=== PATIENT | female | born 1955 | race Caucasian/White ===

== ENCOUNTER 2023-07-12 14:30 | Outpatient (OUT) | payer MEDICARE, OTHER, SELFPAY ==
--- NOTE | 2023-07-12 | MM_ITS ---
Patient Name: PETRONA BURNS MR#: [id number] : 1955 Exam Date: 07/12/2023 Ordering Doctor: Chiara Penny RADIOLOGY REPORT PROCEDURE: MM TOMOSYNTHESIS SCREENING BI COMPARISON: None. INDICATIONS: Screening Calculator Name NCI Breast Cancer Risk Assessment Tool 5 Year Breast Cancer Risk 1.50% Lifetime Breast Cancer Risk 5.20% Personal Breast Cancer No Personal Ovarian Cancer No Treatments None Family Cancers None LOCATION: [facility] BREAST COMPOSITION: Heterogeneously dense,which may obscure small masses. FINDINGS: DIAGNOSTIC CATEGORY 2--BENIGN FINDING: Extensive linear calcifications likely representing secretory calcifications. No clustered suspicious calcifications.Scattered benign-appearing lymph nodes are present. RIGHT BREAST: No significant suspicious finding. LEFT BREAST: No significant suspicious finding. RECOMMENDATIONS: ROUTINE MAMMOGRAM AND CLINICAL EVALUATION IN 12 MONTHS. PLEASE NOTE: A NORMAL MAMMOGRAM DOES NOT EXCLUDE THE POSSIBILITY OF BREAST CANCER. A CLINICALLY SUSPICIOUS PALPABLE LUMP SHOULD BE BIOPSIED. Dictated by: Greg Conde MD on 07/14/2023 at 07:38 Approved by: Greg Conde MD on 07/14/2023 at 07:41
--- NOTE | 2023-07-12 14:42 | XR_ITS ---
[address] [address] Patient Name: PETRONA BURNS MRN: [id number] date: 1955 Sex: F Assigned Patient Location: MAMMO Current Patient Location: [facility] Accession/Order Number: [id number] Exam Date: 07/12/2023 15:00 Report Date: 07/12/2023 15:21 At the request of: MULU BHAKTA Procedure: XR DEXA axial skeleton EXAMINATION: XR DEXA axial skeleton HISTORY: Asymptomatic Menopause Z78.0 COMPARISON: No relevant comparison available. TECHNIQUE: Dual-energy X-ray absorptiometry (DXA) was performed. FINDINGS: FOREARM ANALYSIS: Average bone mineral density is 0.769 g/cm2. T-score (standard deviation relative to young adult mean): 0.8 . HIP ANALYSIS: Lowest bone mineral density is within the left femoral neck, 0.917 g/cm2. T-score (standard deviation relative to young adult mean): -0.9 . XR/XR DEXA axial skeleton IMPRESSION: [employer] Classification: Normal - Low Fracture Risk Electronically authenticated by: JOSE LUIS ZAFAR Date: 07/12/2023 15:21
== END 2023-07-12 14:31 | disposition home or self-care (01) ==
LOC: MAMMO 14:30
PROVIDERS: PCP Family Medicine; Visit Provider Family Medicine
DX: Z12.31 Encounter for screening mammogram for malignant neoplasm of breast (principal); Z78.0 Asymptomatic menopausal state
CPT/HCPCS: 77063; 77067; 77080

== ENCOUNTER 2023-09-20 15:33 | Outpatient (OUT) | payer MEDICARE, OTHER, SELFPAY ==
--- OUTSIDE RECORDS SUMMARY | 2023-09-20 15:41 | XMS_ITS | CCD ---
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 Name Role Phone Mil Leiva Primary Care Provider EDGARD MANUEL Referring Unavailable MIL LEIVA Primary Care Unavailable Penny, Chiara Unavailable Asaad, Imad Unavailable MD Leslie Imyehuda Attending Provider [phone] Penny, DO Chiara A Primary Care Provider [phone] Penny, DO Chiara A Primary Care Provider [phone] Penny, DO Chiara A Attending Provider [phone] Penny, DO Chiara A Primary Care Provider [phone] Penny, DO Chiara A Attending Provider [phone] Asaad, Imad Attending Unavailable Penny, Chiara A Primary Care Unavailable Asaad, Imad Admitting Unavailable Penny, Chiara A Admitting Unavailable Penny, Chiara A Primary Care Unavailable Penny, Chiara A Attending Unavailable Penny, Chiara A Admitting Unavailable Penny, Chiara A Primary Care Unavailable Zohaib, Chiara A Attending Unavailable Dez Harrell DO Primary Care Provider Unava ilable LISA WILSON Referring Unavailable DEZ HARRELL Primary Care Unavailable LISA WILSON Referring Unavailable DEZ HARRELL Primary Care Unavailable LISA WILSON Referring Unavailable DEZ HARRELL Primary Care Unavailable Medications Current Medications Medication Drug Class(es) Dates Sig (Normalized) Sig (Original) aspirin 81 mg delayed release oral tablet (2 sources) Platelet Aggregation Inhibitor, Nonsteroidal Anti-inflammatory Drug take 1 tablet by mouth in the morning aspirin 81 mg Take 1 tablet (81 mg total) by mouth in the morning. 0 Active cetirizine hydrochloride 10 mg chewable tablet (11 sources) Histamine-1 Receptor Antagonist cetirizine (ZyrTEC) 10 MG chewable tablet Chew 1 tablet (10 mg total) and swallow in the morning. 0 Active take 1 tablet by noemi th every twenty-four hours Cetirizine HCl 10 MG 1 tablet Orally Onc e a day for 90 days PRN Active ubidecarenone 100 mg oral tablet (2 sources) take 1 capsule by mo uth once daily UBIDECARENONE (COENZYME Q10) 100 mg tablet Take 1 capsule by mouth daily. 0 Active take 10 capsules by mouth once C oenzyme Q10 (CO Q 10) 100 MG CAPS Take 300 mg by mouth 0 Active fluticasone propionate 0.05 mg/actuat metered dose nasal spray (1 source) Corticosteroid take 2 spray(s) nasal route in the morning fluticasone (FLONASE) 50 mcg/actuation nasal spray Administer 2 sprays into each nostril in the morning. 0 Active hydroCHLOROthiazide 12.5 mg / losartan potassium 50 mg oral tablet (15 sources) Thiazide Diuretic, Angiotensin 2 Receptor Carlos Start: 2016 take 1 tablet by mouth once daily Losartan-Hydrochlor othiazide Active 1 TAB PO Daily January 31, 2023 11:00pm metFORMIN hydrochloride 500 mg oral tablet (15 sources) Biguanide Start: 2019 take 500 mg by mouth once daily Metformin Active 500 MG PO Daily January 31, 2023 11:00pm take 1 tablet by noemi th once daily at breakfast metFORMIN (FORTAMET) 500 MG (OSM) 24 hr tablet Take 1 tablet (500 mg total) by mouth daily with breakfast. 0 Active 24 hr metoprolol succinate 50 mg extended release oral tablet (15 sources) beta-Adrenergic Carlos Start: 02-25-2017 take 50 mg by mouth once daily Metoprolol Succinate Active 50 MG PO Daily January 31, 2023 11:00pm Multiple Vitamin (MULTI-VITAMIN PO) (1 source) Multiple Vitamin (MULTI-VITAMIN PO) Take by mouth. 0 Active MULTIVITAMIN ORAL (1 source) take 1 tablet by mouth once daily MULTIVITAMIN ORAL Take 1 tablet by mouth daily. 0 Active omega 9-eda-ayr-fish oil 1,000 mg (120 mg-180 mg) capsule (1 source) take 1 capsule by mouth in the morning omega 2-uea-yig-fish oil 1,000 mg (120 mg-180 mg) capsule Take 1 capsule by mouth in the morning. 0 Active rosuvastatin calcium 10 mg oral tablet (14 sources) HMG-CoA Reductase Inhibitor Start: 07-13-2023 take 1 tablet by mouth every twenty-four hours Rosuvastatin Calcium 10 MG 1 tablet Orally Once a day for 90 days Jun, Active Start: 02-24-2017 take 20 mg by mouth once daily Rosuvastatin Active 20 MG PO Daily January 31, 2023 11:00pm traMADol hydrochloride 50 mg oral tablet (2 sources) Opioid Agonist Start: 07-29-2020 End: 08-01-2020 take 1 tablet by mouth twice daily as needed for pain traMADol (ULTRAM) 50 MG tablet Indications: Chronic midline low back pain with bilateral sciatica Take 1 tablet by mouth 2 times daily as needed for Pain for up to 3 days. 6 tablet 0 07/29/2020 08/01/2020 Active take 1 tablet by noemi th every six hours as needed for pain traMADol (ULTRAM) 50 mg tablet Take 1 tablet (50 mg total) by mouth every 6 (six) hours as needed for pain. 0 Active Completed/Discontinued Medications Medication Drug Class(es) Dates Sig (Normalized) Sig (Original) polyethylene glycol 3350 402902 mg / potassium chloride 2970 mg / sodium bicarbonate 6740 mg / sodium chloride 5860 mg / sodium sulfate 70526 mg powder for oral solution (6 sources) Osmotic Laxative Start: 11-24-2022 PEG-3350/Electroly lissy 236 GM as directed Orally once daily for 1 days Oct, Not-Taking Problems Active Problems Problem Classification Problem Date Documented Date Episodic/Chronic Chronic kidney disease (2 sources) Chronic kidney disease; Translations: [Chronic kidney disease, unspecified] Onset: 7 10-23-2011 Chronic Coronary atherosclerosis and other heart disease (3 sources) Coronary arteriosclerosis; Translations: [Atherosclerotic heart disease of [place] coronary artery without angina pectoris] Chronic Diabetes mellitus without complication (16 sources) Type 2 diabetes mellitus; Translations: [Type 2 diabetes mellitus without complication] Onset: 7 10-22-2016 Chronic Disorders of lipid metabolism (15 sources) Mixed hyperlipidemia; Translations: [Hyperlipidemia] Onset: 7 10-23-2011 Chronic Esophageal disorders (2 sources) Gastroesophageal reflux disease; Translations: [Gastro-esophageal reflux disease without esophagitis] Onset: 7 10-23-2011 Chronic Essential hypertension (14 sources) Essential hypertension; Translations: [Essential (primary) hypertension] Onset: 6 06-19-2016 Chronic Nonspecific chest pain (1 source) Precordial pain; Translations: [Precordial pain] Onset: 4 Episodic Osteoarthritis (2 sources) Osteoarthritis; Translations: [Unspecified osteoarthritis, unspecified site] Onset: 7 Resolved: 9 09-30-2018 Chronic Other and unspecified benign neoplasm (10 sources) History of polyp of colon; Translations: [Personal history of colonic polyps] Episodic Other and unspecified benign neoplasm (1 source) Personal history of colonic polyps Episodic Other circulatory disease (1 source) Carotid bruit; Translations: [Other specified symptoms and signs involving the circulatory and respiratory systems] Onset: 3 08-17-2023 Episodic Other non-traumatic joint disorders (1 source) Pain in right hip Episodic Other screening for suspected conditions (not mental disorders or infectious disease) (8 sources) Electrocardiogram abnormal; Translations: [Encounter for other screening for malignant neoplasm of breast] Onset: 3 Resolved: 9 09-30-2018 Episodic Other upper respiratory disease (2 sources) Allergic rhinitis; Translations: [Allergic rhinitis, unspecified] Onset: 2 12-11-2011 Chronic Other upper respiratory disease (3 sources) Other seasonal allergic rhinitis; Translations: [Seasonal allergies] Chronic Other upper respiratory disease (4 sources) Seasonal allergy; Translations: [Other seasonal allergic rhinitis] Chronic Residual codes; unclassified (1 source) Asymptomatic menopausal state Episodic Substance-related disorders (9 sources) Tobacco user; Translations: [Nicotine dependence, cigarettes, uncomplicated] Chronic Unclassified (1 source) Encounter for screening for malignant neoplasm of colon; Translations: [Encounter for screening for malignant neoplasm of colon] Onset: 3 Past or Other Problems Problem Classification Problem Date Documented Date Episodic/Chronic Genitourinary symptoms and ill-defined conditions (3 sources) Microalbuminuria; Translations: [Blood in urine] Onset: 10-22-2016 Resolved: 09-30-2018 09-30-2018 Episodic Other and unspecified benign neoplasm (1 source) Benign neoplastic disease; Translations: [Multiple adenomatous polyps] Onset: 09-28-2017 Resolved: 09-30-2018 09-30-2018 Episodic Other connective tissue disease (2 sources) Lateral epicondylitis; Translations: [Lateral epicondylitis, unspecified elbow] Onset: 10-23-2011 Resolved: 05-16-2018 05-16-2018 Episodic Other connective tissue disease (1 source) Pain in thumb ; Translations: [Pain in unspecified finger(s)] Onset: 07-24-2012 03-09-2017 Episodic Other connective tissue disease (1 source) Pain in right thumb; Translations: [Pain of right thumb] Onset: 07-24-2012 Resolved: 09-30-2018 09-30-2018 Other non-traumatic joint disorders (1 source) Pain in wrist; Translations: [Pain in unspecified wrist] Onset: 07-24-2012 03-09-2017 Episodic Other non-traumatic joint disorders (1 source) Pain of right wrist; Translations: [Right wrist pain] Onset: 07-24-2012 Resolved: 05-16-2018 05-16-2018 Other skin disorders (2 sources) Loss of hair; Translations: [Nonscarring hair loss, unspecified] Onset: 06-20-2016 Resolved: 09-30-2018 09-30-2018 Episodic Spondylosis; intervertebral disc disorders; other back problems (1 source) Degeneration of intervertebral disc; Translations: [DDD (degenerative disc disease)] Resolved: 09-30-2018 09-30-2018 Chronic Spondylosis; intervertebral disc disorders; other back problems (2 sources) Chronic low back pain; Translations: [Narrowing of intervertebral disc space] Onset: 03-09-2017 06-18-2017 Episodic Results Test Name Value Interpretation Reference Range Facility CT CTA COR ARTERIES W OR WO SCORINGon 09-16-2023 CT CTA COR ARTERIES W OR WO SCORING CT CTA COR ARTERIES W OR WO SCORING CLINICAL INFORMATION: Abnormal CT scan of the heart, precordial pain, coronary artery disease screening, high coronary artery disease risk, not treadmill candidate. Chest pain TECHNIQUE: Computed tomography (CT) of the heart was obtained using electrocardiography (ECG) triggering. 100 mL of Omni 350 contrast was administered intravenously. In preparation for the examination, the patient received 20 mg oral metoprolol for heart rate/rhythm control and 0.4 mg sublingual nitroglycerin spray for coronary vasodilation. There were no complications 3-D volume rendered maximum intensity projection images were generated and reviewed under concurrent physician supervision on an independent workstation.. CT Derived Fractional Flow G[place] (FFRct) Analysis: FFRct is only obtained on studies with a high coronary calcium burden or in patients with an intermediate grade coronary stenosis to assess the physiologic significance of anatomic stenoses (measured 1-2 cm distal to the stenosis). * FFRct greater than 0.80 = normal. * FFRct 0.76-0.80 = intermediate range and features of the stenosis including location (proximal vs. distal), presence of high risk plaque or change in FFRct value across the lesion along with clinical presentation should be utilized to determine need for invasive angiography. * FFRct less than 0.75 = abnormal and a follow up invasive angiography is generally recommended. All CT scans at this facility use dose modulation, iterative reconstruction, and/or weight based dosing when appropriate to reduce radiation dose to as low as reasonably achievable. COMPARISON: No relevant prior studies submitted for comparison at the time of interpretation. EXTRACARDIAC FINDINGS: The visualized lungs demonstrate no abnormality. Small hiatal hernia. Images of the upper abdomen demonstrate no abnormality. The pulmonary arteries are normal in caliber. The visualized thoracic aorta is normal normal in caliber with severe calcified and noncalcified plaque, including irregular noncalcified plaque of the descending thoracic aorta with areas of ulcerated plaque. CARDIAC MORPHOLOGY: The right atrium is normal. The right ventricle is normal. The left atrium is normal. The left ventricle is normal. Mild aortic valve leaflet calcification. Mitral valve annular calcification. The pericardium is normal CALCIUM SCORE: Agatston Score: The total (aggregate) calcium score using the AJ-130 method is 2039.9. Total volume score is 1667.8. Greater than 90% of similar patients have less coronary artery calcium {this is reported using the interactive MARTINEZ form found at [email or web address].martinez-[email or web address] org} Individual major vessel AJ-130 scores are: LM = 162.3 LAD = 245.6 LCX = 451.8 RCA/PDA = 1180.2 Other = [address] Angiogram: The overall quality of the CT angiographic examination is excellent. Coronary Artery Angiogram Findings: Stenoses are reported as maximum percentage diameter stenosis. Stenosis grading is reported using the following scheme: Normal: no stenosis Mild: 1-49% stenosis Moderate: 50-70% stenosis Severe: >70% stenosis Occluded The coronary artery system is right dominant with normal origins. The LM has no stenosis with mild calcified plaque. The extent of calcified plaque of the left main coronary artery appears to be overestimated calcium scoring which includes calcification of the adjacent aortic root. The proximal LAD and first diagonal branch (D1) have mild stenosis with predominantly calcified plaque. The mid-distal LAD, D2 and D3 branches) have no stenosis with noncalcified plaque. The proximal to mid LCx coronary artery has mild calcified plaque with no stenosis. Its obtuse marginal (OM) branches have no stenosis with no plaque. 60% ostial RCA stenosis secondary to calcified plaque, additional multifocal stenosis of proximal to mid RCA secondary to calcified and noncalcified plaque as well as severe stenosis of mid RCA and moderate stenosis of the distal RCA secondary to mixed calcified and noncalcified plaque. The right posterior descending artery (RPDA)/right posterolateral {RPL} branches branches have mild stenosis with calcified and noncalcified plaque. IMPRESSION: 1. Severe coronary artery disease including diffuse calcified and noncalcified plaque of the right coronary artery with 60% ostial stenosis from calcified plaque at the osteotomy RCA and a similar to the stenosis including severe stenosis of the mid RCA. 2. Severe atherosclerosis with calcified noncalcified plaque of the visualized thoracic aorta including multifocal areas of ulcerated plaque. The 60 % stenosis in the right coronary artery ostial segment has a borderline likelihood of lesion-specific ischemia with an FFRCT value of 0.80. Gradually decreasing FFR CT values throughout the right coronary artery due to severe atherosclerotic disease with multifocal severe stenosis, and therefore difficult to assess likelihood of lesion specific isch (more content not included)... Normal [facility] CT FFRCT HEARTFLOWon [address] FFRCT HEARTFLOW CLINICAL INFORMATION: Abnormal CT scan of the heart, precordial pain, coronary artery disease screening, high coronary artery disease risk, not treadmill candidate. Chest pain TECHNIQUE: Computed tomography (CT) of the heart was obtained using electrocardiography (ECG) triggering. 100 mL of Omni 350 contrast was administered intravenously. In preparation for the examination, the patient received 20 mg oral metoprolol for heart rate/rhythm control and 0.4 mg sublingual nitroglycerin spray for coronary vasodilation. There were no complications 3-D volume rendered maximum intensity projection images were generated and reviewed under concurrent physician supervision on an independent workstation.. CT Derived Fractional Flow [place] (FFRct) Analysis: FFRct is only obtained on studies with a high coronary calcium burden or in patients with an intermediate grade coronary stenosis to assess the physiologic significance of anatomic stenoses (measured 1-2 cm distal to the stenosis). * FFRct greater than 0.80 = normal. * FFRct 0.76-0.80 = intermediate range and features of the stenosis including location (proximal vs. distal), presence of high risk plaque or change in FFRct value across the lesion along with clinical presentation should be utilized to determine need for invasive angiography. * FFRct less than 0.75 = abnormal and a follow up invasive angiography is generally recommended. All CT scans at this facility use dose modulation, iterative reconstruction, and/or weight based dosing when appropriate to reduce radiation dose to as low as reasonably achievable. COMPARISON: No relevant prior studies submitted for comparison at the time of interpretation. EXTRACARDIAC FINDINGS: The visualized lungs demonstrate no abnormality. Small hiatal hernia. Images of the upper abdomen demonstrate no abnormality. The pulmonary arteries are normal in caliber. The visualized thoracic aorta is normal normal in caliber with severe calcified and noncalcified plaque, including irregular noncalcified plaque of the descending thoracic aorta with areas of ulcerated plaque. CARDIAC MORPHOLOGY: The right atrium is normal. The right ventricle is normal. The left atrium is normal. The left ventricle is normal. Mild aortic valve leaflet calcification. Mitral valve annular calcification. The pericardium is normal CALCIUM SCORE: Agatston Score: The total (aggregate) calcium score using the AJ-130 method is 2039.9. Total volume score is 1667.8. Greater than 90% of similar patients have less coronary artery calcium {this is reported using the interactive MARTINEZ form found at [email or web address].martinez-[email or web address] org} Individual major vessel AJ-130 scores are: LM = 162.3 LAD = 245.6 LCX = 451.8 RCA/PDA = 1180.2 Other = [address] Angiogram: The overall quality of the CT angiographic examination is excellent. Coronary Artery Angiogram Findings: Stenoses are reported as maximum percentage diameter stenosis. Stenosis grading is reported using the following scheme: Normal: no stenosis Mild: 1-49% stenosis Moderate: 50-70% stenosis Severe: >70% stenosis Occluded The coronary artery system is right dominant with normal origins. The LM has no stenosis with mild calcified plaque. The extent of calcified plaque of the left main coronary artery appears to be overestimated calcium scoring which includes calcification of the adjacent aortic root. The proximal LAD and first diagonal branch (D1) have mild stenosis with predominantly calcified plaque. The mid-distal LAD, D2 and D3 branches) have no stenosis with noncalcified plaque. The proximal to mid LCx coronary artery has mild calcified plaque with no stenosis. Its obtuse marginal (OM) branches have no stenosis with no plaque. 60% ostial RCA stenosis secondary to calcified plaque, additional multifocal stenosis of proximal to mid RCA secondary to calcified and noncalcified plaque as well as severe stenosis of mid RCA and moderate stenosis of the distal RCA secondary to mixed calcified and noncalcified plaque. The right posterior descending artery (RPDA)/right posterolateral {RPL} branches branches have mild stenosis with calcified and noncalcified plaque. IMPRESSION: 1. Severe coronary artery disease including diffuse calcified and noncalcified plaque of the right coronary artery with 60% ostial stenosis from calcified plaque at the osteotomy RCA and a similar to the stenosis including severe stenosis of the mid RCA. 2. Severe atherosclerosis with calcified noncalcified plaque of the visualized thoracic aorta including multifocal areas of ulcerated plaque. The 60 % stenosis in the right coronary artery ostial segment has a borderline likelihood of lesion-specific ischemia with an FFRCT value of 0.80. Gradually decreasing FFR CT values throughout the right coronary artery due to severe atherosclerotic disease with multifocal severe stenosis, and therefore difficult to assess likelihood of lesion specific ischemia in the right (more content not included)... Normal [facility] Creatinine (Bld) [Mass/Vol]o n 09-14-2023 Creatinine [Mass/Vol] 1.6 mg/dL High 0.4-1.0 [facility] Comment on above: Result Comment: METH OD TRACEABLE TO IDMS STANDARD Performed By: #### [id number] #### [facility] ([id number]) [address] [place] [address], GFR/1.73 sq M.predicted among non-blacks MDRD (S/P/Bld) [Vol rate/Area] 35 mL/min/{1.73_m2} Low >59 [facility] Comment on above: Result Comment: Reported eGFR is based on the CKD-EPI 2020 equation that does not use a race coefficient. Performed By: #### 3 [id number] #### [facility] ([id number]) [address] [facility] heart calcium score woon 07-07-2023 CT heart calcium score wo [facility] [place] [address] [place] [address] CT Scan Report Signed Patient: Nelia Alvarado MR#: [id number] : 1955 Acct:[id number] Age/Sex: 68 / F ADM Date: 07/07/23 Loc: CT Room: Type: [facility] Attending Dr: Chiara Penny DO Copies to: Chiara Penny DO Ordering Provider: Chiara Penny DO Date of Service: 07/07/23 CT/CT heart calcium score wo: Hyperlipidemia CT heart calcium score w/o contrast REASON FOR EXAM: Hyperlipidemia, hypertension TECHNIQUE: Prospective gated imaging of the heart were obtained for calcium evaluation of the coronary arteries. Agatston score was calculated. The CT exam was performed using one or more the following dose reduction techniques: Automated exposure control, adjustment of the MA and/or Kv according to patient size, or use of the iterative reconstruction technique. COMPARISON:None. FINDINGS: LEFT MAIN: 331.89 LEFT ANTERIOR DESCENDIN.2 RIGHT CORONARY ARTERY: 1364.7 CIRCUMFLEX: 447.22 TOTAL AGATSTON CALCIUM SCORE: 2387.18 This calcium score places the patient at the 90th percentile. EXTRACARDIAC STRUCTURES: No evidence of mediastinal or hilar lymphadenopathy. No pericardial effusion. Visualized lungs demonstrate no acute process. No lung nodule is seen. Limited images of the upper abdomen demonstrate no acute findings. Extensive calcified plaque formation is noted in the thoracic aorta. There is calcified plaque at the mitral and aortic annulus. CT/CT heart calcium score wo IMPRESSION: No significant extracardiac CT findings. CALCIUM SCORE INTERPRETATION (0) No identifiable atherosclerotic plaque. Very low cardiovascular disease risk. Less then 5% chance of presence of coronary artery disease. (1-99) RIsk is mildly increased. Treatment recommendation - moderate intensity statin. (100-299) Risk is moderately increased. Treatment recommendation - moderate to high intensity statin plus ASA 81mg. (>300) Risk is moderately to severely increased. Treatment recommendation - high intensity statin plus ASA 81mg. Source: October 2017 - Coronary artery calcium data and reporting system. An expert consensus document of the Society of Cardiovascular Computed Tomography) CALCIUM SCORING OVERVIEW: Coronary calcium is a marker for plaque in a blood vessel or atherosclerosis (hardening of the arteries). The presence and amount of calcium detected in the coronary artery by the CT scan es timates the presence and amount of atherosclerotic plaque. These calcium deposits can appear years before the development of heart disease symptoms such as chest pain and shortness of breath. A calcium score is computed of each of the coronary arteries based upon the volume and density of the calcium deposits. This can be referred to as your calcified plaque burden. It does not correspond directly to the percentage of narrowing in the artery, but does correlate with the severity of the overall coronary atherosclerotic burden. This score is then used to determine the calcium percentile which compares your calcified plaque to that of other asymptomatic men and women of the same age. The calcium score, in combination with the percentile, enables your physician to determine your risk of developing symptomatic coronary artery disease, and to measure the progression of disease as well as the effectiveness of treatment. A score of zero indicates that there is no calcified plaque burden. This implies that there is no significant coronary artery narrowing and very low likelihood of a cardiac event over at least the next 3 years. It does not absolutely rule out the presence of soft, noncalcified plaque or totally eliminate the possibility of a cardiac event. A score greater than zero indicates at least some coronary artery disease. As the score increases, so does the likelihood of a significant coronary narrowing and the likelihood of a coronary event over the next 3 years. Similarly, the likelihood of a coronary event increases with increasing calcium percentiles. Impression dictated by: Mil Naranjo M.D.07/07/2023 4:49 PM Dictation Location: [place] [address] Transcribed By: AMY 07/07/23 700 Dictated By: Mil Naranjo II, MD 07/07/23 8109 Signed By: 07/07/231648 [facility] A1C HEMOGLOBINon 05-19-2023 HbA1c (Bld) [Mass fraction] 6.2 % Livevol Other Alanine aminotransferase [En zymatic activity/volume] in Serum or PlasmaOrdered By: Chiara Penny on 05-19-2023 ALT [Catalytic activity/Vol] 14 U/L 7-52 [facility] Albumin [Mass/volume] in Ser um or Plasma by Bromocresol green (BCG) dye binding methoOrdered By: Chiara Penny on 05-19-2023 Albumin BCG dye [Mass/Vol] 4.4 g/dL 3.5-5.7 [facility] Alkaline phosphatase [Enzyma tic activity/volume] in Serum or PlasmaOrdered By: Chiara Penny on 05-19-2023 ALP [Catalytic activity/Vol] 50 U/L 34-104 [facility] Aspartate aminotransferase [ Enzymatic activity/volume] in Serum or PlasmaOrdered By: Chiara Penny on 05-19-2023 AST [Catalytic activity/Vol] 15 U/L 13-39 [facility] Bilirubin.total [Mass/volume ] in Serum or PlasmaOrdered By: Chiara Penny on 05-19-2023 Bilirubin [Mass/Vol] 0.3 mg/dL 0.3-1.0 [facility] Calcium [Mass/volume] in Ser um or PlasmaOrdered By: Chiara Penny on 05-19-2023 Calcium [Mass/Vol] 10.1 mg/dL 8.6-10.3 [facility] Carbon dioxide, total [Moles /volume] in Serum or PlasmaOrdered By: Chiara Penny on 05-19-2023 CO2 [Moles/Vol] 31.1 mmol/L 21.0-31.0 [facility] Chloride [Moles/volume] in S radha or PlasmaOrdered By: Chiara Penny on 05-19-2023 Chloride [Moles/Vol] 101 mmol/L 98-107 [facility] Cholesterol [Mass/volume] in Serum or PlasmaOrdered By: Chiara Penny on 05-19-2023 Cholesterol [Mass/Vol] 332 mg/dL 140-200 [facility] Comment on above: Chol less than 200 m g/dl low riskChol 201-239 mg/dl borderline riskChol 240 mg/dl and greater high risk Cholesterol in LDL Calc [Mas s/Vol]Ordered By: Chiara Penny on 05-19-2023 Cholesterol in LDL [Mass/Vol] 226 mg/dL 0-100 [facility] Comment on above: LDL ATP III CLASSIFI CATIONLDL less than 100 mg/dL OptimalLDL 100-129 mg/dL Near or above optimalLDL 130-159 mg/dL Borderline highLDL 160-189 mg/dL HighLDL greater than 189 mg/dL Very high Cholesterol in VLDL Calc [Ma ss/Vol]Ordered By: Chiara Penny on 05-19-2023 Cholesterol in VLDL [Mass/Vol] 65 mg/dL [facility] Comprehensive Metabolic Pane frederick 05-19-2023 Albumin [Mass/Vol] 4.4 g/dL Normal 3.5-5.7 [facility] Comment on above: Order Comment: Reaso n for Exam Type 2 diabetes mellitus without complication, without long- FASTING. JKW Performed By: #### L IPID, URMA, CMP, CBCNO #### [facility] [address] [place] [address] [place] Albumin/Globulin [Mass ratio] 1.6 {ratio} Normal [facility] Comment on above: Order Comment: Reaso n for Exam Type 2 diabetes mellitus without complication, without long- FASTING. JKW Performed By: #### L IPID, URMA, CMP, CBCNO #### [facility] [address] [place] [id number] [place] ALP [Catalytic activity/Vol] 50 U/L Normal 34-104 [facility] Comment on above: Order Comment: Reaso n for Exam Type 2 diabetes mellitus without complication, without long- FASTING. JKW Performed By: #### L IPID, URMA, CMP, CBCNO #### [facility] [address] [place] [id number] [place] ALT [Catalytic activity/Vol] 14 U/L Normal 7-52 [facility] Comment on above: Order Comment: Reaso n for Exam Type 2 diabetes mellitus without complication, without long- FASTING. JKW Performed By: #### L IPID, URMA, CMP, CBCNO #### [facility] [address] Anion gap [Moles/Vol] 11.3 mmol/L Normal 6.0-15.0 [facility] Comment on above: Order Comment: Reaso n for Exam Type 2 diabetes mellitus without complication, without long- FASTING. JKW Performed By: #### L IPID, URMA, CMP, CBCNO #### [facility] [address] AST [Catalytic activity/Vol] 15 U/L Normal 13-39 [facility] Comment on above: Order Comment: Reaso n for Exam Type 2 diabetes mellitus without complication, without long- FASTING. JKW Performed By: #### L IPID, URMA, CMP, CBCNO #### [facility] [address] Bilirubin [Mass/Vol] 0.3 mg/dL Normal 0.3-1.0 [facility] Comment on above: Order Comment: Reaso n for Exam Type 2 diabetes mellitus without complication, without long- FASTING. JKW Performed By: #### L IPID, URMA, CMP, CBCNO #### [facility] [address] Calcium [Mass/Vol] 10.1 mg/dL Normal 8.6-10.3 [facility] Comment on above: Order Comment: Reaso n for Exam Type 2 diabetes mellitus without complication, without long- FASTING. JKW Performed By: #### L IPID, URMA, CMP, CBCNO #### [facility] [address] [place] [id number] [place] Chloride [Moles/Vol] 101 mmol/L Normal 98-107 [facility] Comment on above: Order Comment: Reaso n for Exam Type 2 diabetes mellitus without complication, without long- FASTING. JKW Performed By: #### L IPID, URMA, CMP, CBCNO #### [facility] [address] [place] [id number] [place] CO2 [Moles/Vol] 31.1 mmol/L High 21.0-31.0 [facility] Comment on above: Order Comment: Reaso n for Exam Type 2 diabetes mellitus without complication, without long- FASTING. JKW Performed By: #### L IPID, URMA, CMP, CBCNO #### [facility] [address] Creatinine [Mass/Vol] 1.17 mg/dL Normal 0.60-1.20 [facility] Comment on above: Order Comment: Reaso n for Exam Type 2 diabetes mellitus without complication, without long- FASTING. JKW Performed By: #### L IPID, URMA, CMP, CBCNO #### [facility] [address] GFR/1.73 sq M.predicted MDRD (S/P/Bld) [Vol rate/Area] 51.144 mL/min/{1.73_m2} Normal [facility] Comment on above: Order Comment: Reaso n for Exam Type 2 diabetes mellitus without complication, without long- FASTING. JKW Performed By: #### L IPID, URMA, CMP, CBCNO #### [facility] [address] Globulin (S) [Mass/Vol] 2.8 g/dL Normal [facility] Comment on above: Order Comment: Reaso n for Exam Type 2 diabetes mellitus without complication, without long- FASTING. JKW Performed By: #### L IPID, URMA, CMP, CBCNO #### [facility] [address] Glucose [Mass/Vol] 122 mg/dL High 70-100 [facility] Comment on above: Order Comment: Reaso n for Exam Type 2 diabetes mellitus without complication, without long- FASTING. JKW Result Comment: [place] Glucose Reference Range is dependent on time and content of last meal. Glucose of more than 200 mg/dL in a nonstressed, ambulatory subject supports the diagnosis of Diabetes Mellitus. ADA recommended reference range Performed By: #### L IPID, URMA, CMP, CBCNO #### [facility] [address] Potassium [Moles/Vol] 4.4 mmol/L Normal 3.5-5.1 [facility] Comment on above: Order Comment: Reaso n for Exam Type 2 diabetes mellitus without complication, without long- FASTING. JKW Performed By: #### L IPID, URMA, CMP, CBCNO #### [facility] [address] Protein [Mass/Vol] 7.2 g/dL Normal 6.4-8.9 [facility] Comment on above: Order Comment: Reaso n for Exam Type 2 diabetes mellitus without complication, without long- FASTING. JKW Performed By: #### L IPID, URMA, CMP, CBCNO #### [facility] [address] [place] [address] [place] Sodium [Moles/Vol] 139 mmol/L Normal 136-145 [facility] Comment on above: Order Comment: Reaso n for Exam Type 2 diabetes mellitus without complication, without long- FASTING. JKW Performed By: #### L IPID, URMA, CMP, CBCNO #### [facility] [address] [place] [address] [place] Urea nitrogen [Mass/Vol] 20 mg/dL Normal 7-25 [facility] Comment on above: Order Comment: Reaso n for Exam Type 2 diabetes mellitus without complication, without long- FASTING. JKW Performed By: #### L IPID, URMA, CMP, CBCNO #### [facility] [address] Creatinine [Mass/volume] in Serum or PlasmaOrdered By: Chiara Penny on 05-19-2023 Creatinine [Mass/Vol] 1.17 mg/dL 0.60-1.20 [facility] Erythrocyte distribution wid th Auto (RBC) [Ratio]Ordered By: Chiara Penny on 05-19-2023 Erythrocyte distribution width (RBC) [Ratio] 13.2 % 11.9-15.3 [facility] Globulin Calc (S) [Mass/Vol] Ordered By: Chiara Penny on 05-19-2023 Globulin (S) [Mass/Vol] 2.8 g/dL [facility] Glucose [Mass/volume] in Ser um or PlasmaOrdered By: Chiara Penny on 05-19-2023 Glucose [Mass/Vol] 122 mg/dL 70-100 [facility] Comment on above: ADA recommended refe rence rangeRandom Glucose Reference Range is dependent on time and content of last meal. Glucose of more than 200 mg/dL in a nonstressed, ambulatory subject supports the diagnosis of Diabetes Mellitus. HbA1c (Bld) [Mass fraction]o n 05-19-2023 A1C HEMOGLOBIN [email or web address] Other Hematocrit Auto (Bld) [Volum e fraction]Ordered By: Chiara Penny on 05-19-2023 Hematocrit (Bld) [Volume fraction] 38.0 % 34.0-46.4 [facility] Hemoglobin [Mass/volume] in BloodOrdered By: Chiara Penny on 05-19-2023 Hemoglobin (Bld) [Mass/Vol] 12.7 g/dL 11.8-15.4 [facility] Hemogram CBC Without Diffon 05-19-2023 Erythrocyte distribution width (RBC) [Ratio] 13.2 % Normal 11.9-15.3 [facility] Comment on above: Order Comment: Reaso n for Exam Type 2 diabetes mellitus without complication, without long- Performed By: #### L IPID, URMA, CMP, CBCNO #### [facility] [address] Hematocrit (Bld) [Volume fraction] 38.0 % Normal 34.0-46.4 [facility] Comment on above: Order Comment: Reaso n for Exam Type 2 diabetes mellitus without complication, without long- Performed By: #### L IPID, URMA, CMP, CBCNO #### [facility] [address] Hemoglobin (Bld) [Mass/Vol] 12.7 g/dL Normal 11.8-15.4 [facility] Comment on above: Order Comment: Reaso n for Exam Type 2 diabetes mellitus without complication, without long- Performed By: #### L IPID, URMA, CMP, CBCNO #### [facility] [address] [place] [address] MCH (RBC) [Entitic mass] 30.7 pg Normal 24.7-34.3 [facility] Comment on above: Order Comment: Reaso n for Exam Type 2 diabetes mellitus without complication, without long- Performed By: #### L IPID, URMA, CMP, CBCNO #### [address] MCV (RBC) [Entitic vol] 92.2 fL Normal 80-100 [facility] Comment on above: Order Comment: Reaso n for Exam Type 2 diabetes mellitus without complication, without long- Performed By: #### L IPID, URMA, CMP, CBCNO #### [address] Mean Corpuscular HGB Conc 33.3 g/dL Normal 32.0-35.0 [facility] Comment on above: Order Comment: Reaso n for Exam Type 2 diabetes mellitus without complication, without long- Performed By: #### L IPID, URMA, CMP, CBCNO #### [address] Platelet mean volume (Bld) [Entitic vol] 9.0 fL Normal 6.3-10.7 [facility] Comment on above: Order Comment: Reaso n for Exam Type 2 diabetes mellitus without complication, without long- Result Comment: PERF ORMED BY: [place] [address] PATHOLOGIST CABLE RIGGER HERMAN STOUT M.D. Performed By: #### L IPID, URMA, CMP, CBCNO #### [place] [address] [place] Platelets (Bld) [#/Vol] 332 10*3/uL Normal 150-450 [facility] Comment on above: Order Comment: Reaso n for Exam Type 2 diabetes mellitus without complication, without long- Performed By: #### L IPID, URMA, CMP, CBCNO #### [address] RBC (Bld) [#/Vol] 4.12 10*6/uL Normal 3.60-5.00 [facility] Comment on above: Order Comment: Reaso n for Exam Type 2 diabetes mellitus without complication, without long- Performed By: #### L IPID, URMA, CMP, CBCNO #### [facility] [address] WBC (Bld) [#/Vol] 8.4 10*3/uL Normal 3.8-11.6 [facility] Comment on above: Order Comment: Reaso n for Exam Type 2 diabetes mellitus without complication, without long- Performed By: #### L IPID, URMA, CMP, CBCNO #### [facility] [address] [place] [address] [place] Leukocytes [#/volume] correc jose for nucleated erythrocytes in Blood by Automated counOrdered By: Chiara Penny on 05-19-2023 WBC corrected for nucl RBC Auto (Bld) [#/Vol] 8.4 10*3/uL 3.8-11.6 [facility] Lipid Panelon 05-19-2023 Cholesterol [Mass/Vol] 332 mg/dL High 140-200 [facility] Comment on above: Order Comment: Reaso n for Exam Type 2 diabetes mellitus without complication, without long- FASTING. JKW Result Comment: Chol less than 200 mg/dl low risk Chol 201-239 mg/dl borderline risk Chol 240 mg/dl and greater high risk Performed By: #### L IPID, URMA, CMP, CBCNO #### [facility] [address] [place] [id number] [place] Cholesterol in HDL [Mass/Vol] 41 mg/dL Normal 23-92 [facility] Comment on above: Order Comment: Reaso n for Exam Type 2 diabetes mellitus without complication, without long- FASTING. JKW Result Comment: HDL CHOL ATP-III CLASSIFICATION Cardiovascular Risk HDL > or equal to 60 mg/dL LOW HDL < 40 mg/dL HIGH Performed By: #### L IPID, URMA, CMP, CBCNO #### [facility] [address] [place] [address] [facility] Cholesterol.total/Brianna sterol in HDL [Mass ratio] 8.1 {ratio} Normal <5.0 [facility] Comment on above: Order Comment: Reaso n for Exam Type 2 diabetes mellitus without complication, without long- FASTING. JKW Result Comment: PERF ORMED BY: [place] [address] PATHOLOGIST CABLE RIGGER HERMAN STOUT M.D. Performed By: #### L IPID, URMA, CMP, CBCNO #### [facility] [address] [place] [address] LDL Cholesterol,Calculated 226 mg/dL High 0-100 [facility] Comment on above: Order Comment: Reaso n for Exam Type 2 diabetes mellitus without complication, without long- FASTING. JKW Result Comment: LDL ATP III CLASSIFICATION LDL less than 100 mg/dL Optimal LDL 100-129 mg/dL Near or above optimal LDL 130-159 mg/dL Borderline high LDL 160-189 mg/dL High LDL greater than 189 mg/dL Very high Performed By: #### L IPID, URMA, CMP, CBCNO #### [address] Triglyceride w/Reflex 325 mg/dL High 0-149 [facility] Comment on above: Order Comment: Reaso n for Exam Type 2 diabetes mellitus without complication, without long- FASTING. JKW Result Comment: TRIG ATP III CLASSIFICATION TRIG less than 150 mg/dL Normal TRIG 150-199 mg/dL Borderline high TRIG 200-500 mg/dL High TRIG greater than 500 mg/dL Very high Standard traceable to the Center for Disease Conrtrol and Prevention (CDC) test method. Performed By: #### L IPID, URMA, CMP, CBCNO #### [facility] [address] [place] [address] VLDL CHOLESTEROL 65 mg/dL [facility] Comment on above: Order Comment: Reaso n for Exam Type 2 diabetes mellitus without complication, without long- FASTING. JKW Performed By: #### L IPID, URMA, CMP, CBCNO #### [facility] [address] [place] [address] MCH Auto (RBC) [Entitic mass ]Ordered By: Chiara Penny on 05-19-2023 MCH (RBC) [Entitic mass] 30.7 pg 24.7-34.3 [facility] MCHC Auto (RBC) [Mass/Vol]Or dered By: Chiara Penny on 05-19-2023 MCHC (RBC) [Mass/Vol] 33.3 g/dL 32.0-35.0 [facility] MCV Auto (RBC) [Entitic vol] Ordered By: Chiara Penny on 05-19-2023 MCV (RBC) [Entitic vol] 92.2 fL 80-100 [facility] Microalbumin [Mass/volume] i n UrineOrdered By: Chiara Penny on 05-19-2023 Albumin DL <= 20 mg/L (U) [Mass/Vol] mg/dL 0.0-1.8 [facility] Microalbumin, Urine (Random) on 05-19-2023 Albumin DL <= 20 mg/L (U) [Mass/Vol] mg/dL High 0.0-1.8 [facility] Comment on above: Order Comment: Reaso n for Exam Type 2 diabetes mellitus without complication, without long- Result Comment: PERF ORMED BY: [place] [address] PATHOLOGIST CABLE RIGGER HERMAN STOUT M.D. Performed By: #### L IPID, URMA, CMP, CBCNO #### [address] No Panel InformationOrdered By: Chiara Penny on 05-19-2023 Estimated GFR (CKD-EPI) 51.144 mL/Min [facility] Creatinine Clearance (Chem N/A [facility] Platelet mean volume Auto (B ld) [Entitic vol]Ordered By: Chiara Penny on 05-19-2023 Platelet mean volume (Bld) [Entitic vol] 9.0 fL 6.3-10.7 [facility] Platelets Auto (Bld) [#/Vol] Ordered By: Chiara Penny on 05-19-2023 Platelets (Bld) [#/Vol] 332 10*3/uL 150-450 [facility] Potassium [Moles/volume] in Serum or PlasmaOrdered By: Chiara Penny on 05-19-2023 Potassium [Moles/Vol] 4.4 mmol/L 3.5-5.1 [facility] Protein [Mass/volume] in Ser um or PlasmaOrdered By: Chiara Penny on 05-19-2023 Protein [Mass/Vol] 7.2 g/dL 6.4-8.9 [facility] RBC Auto (Bld) [#/Vol]Ordere d By: Chiara Penny on 05-19-2023 RBC (Bld) [#/Vol] 4.12 10*6/uL 3.60-5.00 [facility] Serum or plasma albumin/glob ulin mass ratioOrdered By: Chiara Penny on 05-19-2023 Albumin/Globulin [Mass ratio] 1.6 {ratio} [facility] Serum or plasma anion gap de terminationOrdered By: Chiara Penny on 05-19-2023 Anion gap [Moles/Vol] 11.3 mmol/L 6.0-15.0 [facility] Serum or plasma high density lipoprotein (HDL) cholesterol measurementOrdered By: Chiara Penny on 05-19-2023 Cholesterol in HDL [Mass/Vol] 41 mg/dL 23-92 [facility] Comment on above: HDL CHOL ATP-III CLA SSIFICATION Cardiovascular RiskHDL > or equal to 60 mg/dL LOWHDL < 40 mg/dL HIGH Serum or plasma total choles terol/high density lipoprotein (HDL) cholesterol mass ratOrdered By: Chiara Penny on 05-19-2023 Cholesterol.total/Brianna sterol in HDL [Mass ratio] 8.1 {ratio} <5.0 [facility] Sodium [Moles/volume] in Ser um or PlasmaOrdered By: Chiara Penny on 05-19-2023 Sodium [Moles/Vol] 139 mmol/L 136-145 [facility] Triglyceride [Mass/volume] i n Serum or PlasmaOrdered By: Chiara Penny on 05-19-2023 Triglyceride [Mass/Vol] 325 mg/dL 0-149 [facility] Comment on above: TRIG ATP III CLASSIF ICATIONTRIG less than 150 mg/dL NormalTRIG 150-199 mg/dL Borderline highTRIG 200-500 mg/dL High TRIG greater than 500 mg/dL Very highStandard traceable to the Center for Disease Conrtrol and Prevention (CDC) test method. Urea nitrogen [Mass/volume] in Serum or PlasmaOrdered By: Chiara Penny on 05-19-2023 Urea nitrogen [Mass/Vol] 20 mg/dL 7-25 [facility] Glucose Glucometer (BldC) [M ass/Vol]Ordered By: Vaibhav Nelson on 02-01-2023 Glucose [Mass/Vol] 120 mg/dL [facility] Comment on above: Random Glucose Refer ence Range is dependent on time and content of last meal. Glucose of more than 200 mg/dL in a nonstressed, ambulatory subject supports the diagnosis of Diabetes Mellitus. Glucose Poct Glucometerson 0 02-01-2023 Commemt1 Glu2: Cleaned Meter Normal [facility] Comment on above: Result Comment: PERF ORMED BY: [facility] [address] [place] [address] PATHOLOGIST CABLE RIGGER HERMAN STOUT M.D. Performed By: #### G LULS #### Point of Care testing , Glucose [Mass/Vol] 120 mg/dL Normal [facility] Comment on above: Result Comment: [place] Glucose Reference Range is dependent on time and content of last meal. Glucose of more than 200 mg/dL in a nonstressed, ambulatory subject supports the diagnosis of Diabetes Mellitus. Performed By: #### G LULS #### Point of Care testing , [place] 02-01-2023 L -- ---- Specimen: [id number] Received: 02/01/23 Status: BARBARA Lara Num: [id number] Spec Type: Surgical Subm Dr: Vaibhav Nelson MD Tissues: A Colon Biopsy (DESCENDING POLYPS) B Colon Biopsy (SIGMOID POLYP) Procedures: HE/Caty, Gross/Micro L4/2 ---- Age/ Patient Sex Location Account Attending Physician ---- Nelia Alvarado 67/F [id number] Vaibhav Nelson MD ---- SPEC NUM: [id number] RECD: 02/01/23-1009 STATUS: BARBARA LARA NUM: [id number] SARAH: 02/01/23- SUBM DR: Vaibhav Nelson MD ENTERED: 02/01/23-[address] [facility] DR: CAITLIN TYPE: Surgical DEPT: S ORDERED: HE/Caty, Gross/Micro L4/2 ORDERED: HECaty, Gross/Micro L4/2 Pathological Diagnosis A. Colon, descending, polyps, biopsy: - Colonic mucosal fold. - Negative for adenoma/dysplasia. B. Colon, sigmoid, polyp, biopsy: - Hyperplastic polyp. Clinical Information History of colon polyp Gross Description A. Received in formalin labeled with the patient's name, number and descending colon polyps are multiple fragments of soft moffett tissue and apparent fecal material measuring 2.7 x 1.2 x 0.2 cm in aggregate. Entirely submitted in one cassette labeled A1. B. Received in formalin labeled with the patient's name, number and sigmoid colon polyp are multiple fragments of soft moffett tissue and apparent fecal material measuring 2.5 x 1.2 x 0.2 cm in aggregate. Entirely submitted in one cassette labeled B1. ---- Specimen: [id number] Received: 02/01/23 Status: BARBARA Lara Num: [id number] Spec Type: Surgical Subm Dr: Vaibhav Nelson MD Tissues: A Colon Biopsy (DESCENDING POLYPS) B Colon Biopsy (SIGMOID POLYP) Procedures: HE/4, Gross/Micro L4/2 ---- Patient: Nelia Alvarado [id number] (Continued) ---- Specimen: [id number] Received: 02/01/23 (Continued) Signed (signature on file) Suri Aguirre MD 02/02/23 0950 ---- Specimen: [id number] Received: 02/01/23 Status: BARBARA Lara Num: [id number] Spec Type: Surgical Subm Dr: Vaibhav Nelson MD Tissues: A Colon Biopsy (DESCENDING POLYPS) B Colon Biopsy (SIGMOID POLYP) Procedures: HE/4, Gross/Micro L4/2 ---- Patient: Nelia Alvarado [id number] (Continued) ---- Specimen: [id number] Received: 02/01/23 (Continued) Microscopic Description A. Two H E slides reviewed. The microscopic examination confirms the diagnosis. B. Two H E slides reviewed. The microscopic examination confirms the diagnosis. CPT Codes 57097x0 ---- ---- Specimen: [id number] Received: 02/01/23 Status: BARBARA Lara Num: [id number] Spec Type: Surgical Subm Dr: Vaibhav Nelson MD Tissues: A Colon Biopsy (DESCENDING POLYPS) B Colon Biopsy (SIGMOID POLYP) Procedures: HE/Caty, Gross/Micro L4/2 ---- Patient: Nelia Alvarado [id number] (Continued) ---- Signed (signature on file) Suri Aguirre MD 02/02/23 7200 Normal [facility] No Panel InformationOrdered By: Vaibhav Nelson on 02-01-2023 Bedside Glucose Comment Glu2: cleaned meter [facility] A1C HEMOGLOBINon 11-12-2022 HbA1c (Bld) [Mass fraction] 6.7 % [employer] Other HbA1c (Bld) [Mass fraction]o n 11-12-2022 A1C HEMOGLOBIN [facility] [employer] Other Microalb.,Random Uron 2019 Microalb/Creat Ratio 1005 mcg/mg creat High <25 [facility] Comment on above: Performed By: #### U RNMAB #### [employer] [address] [place], [place] [id number] Airline Pilot: Jamie Brantley MD Microalbumin conc. 1230 mg/L High <21 [facility] Comment on above: Performed By: #### U RNMAB #### [facility] [address] [place], [place] [id number] Airline Pilot: Jamie Brantley MD Creatinine [Mass/Vol] 122.4 mg/dL Normal 28.0-217.0 [facility] Comment on above: Performed By: #### U RNMAB #### [employer] [address] [place], [place] [id number] Airline Pilot: Jamie Brantley MD Microalbumin, Uron 0 Albumin/Creatinine DL <= 20 mg/L (24H U) [Mass ratio] 1230 mg/L High <21 [place], [place] Albumin/Creatinine DL <= 20 mg/L (U) [Ratio] 1005 High <25 mcg/mg creat [place], [place] Creatinine [Mass/Vol] 122.4 mg/dL 28 - 2 17 mg/dL [place], [place] Interpretation and review of laboratory results Abnormal [place], [place] Vital Signs Date Time Vital Sign Value Performing Clinician Facility 06-02-2023 13:15-0400 Body height 157.48 cm Chiara Penny Other [facility] Other 06-02-2023 13:15-0400 Body mass index (BMI) [Ratio] 32.74 kg/m2 Chiara Penny Other [facility] Other 06-02-2023 13:15-0400 Body weight 81.19 kg Chiaraamina Penny Other [facility] Other 06-02-2023 13:15-0400 Diastolic blood pressure 84 mm[Hg] Chiara Penny Other [facility] Other 06-02-2023 13:15-0400 Respiratory rate 18 /min Chiara Penny Other [facility] Other 06-02-2023 13:15-0400 SaO2% (BldA) [Mass fraction] 97 % Chiara Penny Other [facility] Other 06-02-2023 13:15-0400 Systolic blood pressure 152 mm[Hg] Chiara Penny Other [facility] Other 05-19-2023 11:45-0400 Body height 157.48 cm Chiara Penny Other [facility] Other 05-19-2023 11:45-0400 Body mass index (BMI) [Ratio] 32.97 kg/m2 Chiara Penny Other [facility] Other 05-19-2023 11:45-0400 Body weight 81.78 kg Chiara Penny Other [facility] Other 05-19-2023 11:45-0400 Diastolic blood pressure 82 mm[Hg] Chiara Penny Other [facility] Other 05-19-2023 11:45-0400 Respiratory rate 18 /min Chiara Penny Other [facility] Other 05-19-2023 11:45-0400 SaO2% (BldA) [Mass fraction] 97 % Chiara Penny Other [facility] Other 05-19-2023 11:45-0400 Systolic blood pressure 138 mm[Hg] Chiara Pneny Other [facility] Other 02-01-2023 10:22-0400 Diastolic blood pressure 61 mm[Hg] DO Chiara Penny Work Phone: [facility] 02-01-2023 10:22-0400 Heart rate 57 /min DO Chiara Penny Work Phone: [facility] 02-01-2023 10:22-0400 Respiratory rate 16 /min DO Chiara Penny Work Phone: [facility] 02-01-2023 10:22-0400 SaO2% (BldA) [Mass fraction] 97 % DO Chiara Penny Work Phone: [facility] 02-01-2023 10:22-0400 Systolic blood pressure 122 mm[Hg] DO Chiara Penny Work Phone: [facility] 02-01-2023 08:52-0400 Body height 157.48 cm DO Chiara Penny Work Phone: [facility] 02-01-2023 08:52-0400 Body temperature 98 [degF] DO Chiara Penny Work Phone: [facility] 02-01-2023 08:52-0400 Body weight 78.92 kg DO Chiara Penny Work Phone: [facility] 11-12-2022 12:00-0400 Body height 157.48 cm Chiara Penny Other [facility] Other 11-12-2022 12:00-0400 Body mass index (BMI) [Ratio] 33.14 kg/m2 Chiara Penny Other [facility] Other 11-12-2022 12:00-0400 Body weight 82.19 kg Chiara Penny Other [facility] Other 11-12-2022 12:00-0400 Diastolic blood pressure 82 mm[Hg] Chiara Penny Other [facility] Other 11-12-2022 12:00-0400 Respiratory rate 18 /min Chiara Penny Other [facility] Other 11-12-2022 12:00-0400 SaO2% (BldA) [Mass fraction] 99 % Chiara Penny Other [facility] Other 11-12-2022 12:00-0400 Systolic blood pressure 154 mm[Hg] Chiara Penny Other [facility] Other Encounters Encounter Date Encounter Type Care Provider Facility Start: 09-16-2023 Telephone encounter Antoni Ventura [facility] Comment on above: Cardiac Cath Start: 09-15-2023 End: 09-16-2023 ambulatory [facility] Start: 09-14-2023 End: 09-15-2023 ambulatory [facility] Start: 08-12-2023 End: 08-12-2023 ambulatory Chiara Penny Other [facility] Other Start: 08-12-2023 Telephone encounter Chiara Penny [facility] [place] Start: 07-08-2023 End: 07-08-2023 ambulatory Chiara Penny Other [facility] Other Start: 07-08-2023 Telephone encounter Chiara Penny [facility] Start: 07-07-2023 End: 07-07-2023 ambulatory Chiara Amina Penny Facility:[facility] Start: 07-07-2023 End: 07-07-2023 ambulatory DO Chiara Amina Penny Work Phone: [facility] Work Phone: Start: 07-07-2023 End: 07-07-2023 Patient encounter procedure DO Chiara Penny Work Phone: [facility] [place] Work Phone: Start: 06-02-2023 End: 06-02-2023 ambulatory Chiarafreedom Penny Other [facility] Other Start: 06-02-2023 Office outpatient vi sit 15 minutes Chiaraamina Penny [facility] [place] Start: 05-20-2023 End: 05-20-2023 ambulatory Chiaraamina Penny Other [facility] Other Start: 05-20-2023 Telephone encounter Chiara Penny [facility] [place] Start: 05-19-2023 End: 05-19-2023 Patient encounter procedure Chiara Penny [facility] Family [facility] [place] Start: 05-19-2023 Telephone encounter Chiaraamina Penny [facility] [place] Start: 05-19-2023 End: 05-19-2023 ambulatory DO Chiara Amina Penyn Work Phone: [facility] Other Start: 05-13-2023 End: 05-13-2023 ambulatory Chiara Zohaib Other [facility] Other Start: 05-13-2023 Telephone encounter Chiara PARDO [facility] [place] Start: 03-10-2023 End: 03-10-2023 ambulatory Imad Asaad Other [facility] Other Start: 03-10-2023 Telephone encounter Imad Asaad [facility] Start: 02-01-2023 End: 02-01-2023 ambulatory Imad Asaad Facility:[facility] Start: 02-01-2023 End: 02-01-2023 Admission to same day surgery center DO Chiara Penny Work Phone: [facility] Work Phone: Start: 02-01-2023 End: 02-01-2023 ambulatory DO Chiara Cr Zohaib Work Phone: [facility] Work Phone: Start: 11-23-2022 End: 11-23-2022 ambulatory Imad Asaad Other [facility] Other Start: 11-23-2022 Telephone encounter Imad Asaad [facility] Start: 11-12-2022 End: 11-12-2022 ambulatory Chiaraamina Penny Other [facility] Other Start: 11-12-2022 Office outpatient ne w 45 minutes Chiara PARDO [facility] Start: 07-29-2020 End: 07-30-2020 Patient encounter procedure [facility] MANU[facility] Start: 07-29-2020 End: 07-29-2020 Subsequent hospital visit by physician Mil [facility]AUDH[facility] Comment on above: Controlled type 2 di abetes mellitus with complication, without long-term current use of insulin (HCC) Procedures Date Procedure Procedure Detail Performing Clinician Start: 07-07-[address] DO Chiara Penny Work Phone: Start: 02-01-2023 Colonoscopy DO Chiara Penny Work Phone: Start: 07-29-2020 Urine albumin quantitative EDGARD MANUEL Start: 07-29-2020 Urine albumin quantitative Edgard Manuel Work Phone: Plan of Treatment Date Care Activity Detail Author Start: 09-22-2027 Screening for malign ant neoplasm of colon Colon cancer screen colonoscopy [place], [place] Start: 09-15-2024 Adult BMI Screening Adult BMI Screen ing [facility] Start: 08-17-2024 Tobacco Screening Tobacco Screening [facility] Start: 09-23-2023 End: 09-23-2023 Admission to same day surgery center 09/23/2023 1:30 PM EST - 09/23/2023 2:30 PM EST Surgery [facility] Cardiac Cath [address] [place] [id number] Lisa Wilson MD [address] [place] [address] Cardiac catheterization [facility] [id number] [facility] Cardiac Cath Comment on above: Cardiac catheterizat ion [facility] [id number] Start: 09-23-2023 Subsequent hospital visit by physician 09/23/2023 1:30 PM EST Hospital Encounter [facility] Cardiac Cath [address] [place] [id number] Lisa Wilson MD [address] [place] [address] angiography [facility] Cardiac Cath Comment on above: Abnormal cardiac CT angiography Start: 09-23-2023 End: 09-23-2023 Patient encounter procedure 09/23/2023 8:30 AM EST Appointment [facility] [address] [facility] [address] [place] [address] Lisa Wilson MD [address] [place] [address] [facility] Start: 06-02-2023 DTaP,Tdap and Td Vac cines (3 - Td or Tdap) DTaP,Tdap and Td Vaccines (3 - Td or Tdap) [facility] Start: 06-02-2023 DTaP/Tdap/Td vaccine (2 - Td) DTaP/Tdap/Td vaccine (2 - Td) [place], [place] Start: 04-30-2023 Influenza vaccination Influenza Vacc ine [facility] Start: 02-01-2023 [facility] Start: 07-29-2021 Diabetic foot examination Diabetic f oot exam [place] Start: 07-29-2021 HbA1c (Bld) [Mass fraction] A1C test (Diabetic or Prediabetic) [place] Start: 2021 Fall Risk Screening Fall Risk Screen ing [facility] Start: 11-22-2020 End: 11-22-2020 Office Visit 11/22/2020 Office Visit Family Medicine Edgard Manuel, NECKTIE CENTRALIZING MACHINE OPERATOR - MERCHANDISER RETAIL REPRESENTATIVE [address] [facility] [address] [place], [place] [id number] [facility] Start: 04-30-2020 Influenza vaccination Flu vaccine (# 1) [place] Start: 10-25-2019 Creatinine measurement Creatinine mo nitoring [place] Start: 10-25-2019 Potassium monitoring Potassium monit oring [place] Start: 09-15-2019 Lipid panel Lipid screen [place], [place] Start: 10-31-2016 Screening for malign ant neoplasm of cervix Cervical cancer screen [place], [place] Start: 2006 Administration of varicella zoster vaccine Zoster (Shingles) Vaccine (1 of 2) [facility] Start: 2006 Screening for malign ant neoplasm of breast Breast cancer screen [place], [place] Start: 2006 Shingles Vaccine (1 of 2) Shingles V accine (1 of 2) [place] Start: 1974 Adult BMI Follow Up Plan Adult BMI F ollow Up Plan [facility] Start: 1974 Diabetic foot examination Diabetic F oot Exam [facility] Start: 1968 Depression Screening Depression Scre ening [facility] Start: 1966 Diabetic retinal exam Diabetic retin al exam [place], [place] Start: 1956 Glaucoma screening Diabetic Op hthalmology Exam [facility] Start: 1955 Medicare Annual Well ness Visit Medicare Annual Wellness Visit [facility] Start: 1956 Tobacco Counseling Tobacco Counselin g [facility] Patient Education Hemorrhoids Co frederick polyps Diverticulosis (DC) [facility] Work Phone: Immunizations Immunization Date Immunization Notes Care Provider Denice palm 05-07-2017 pneumococcal polysaccharide vaccine, 23 valent [facility] 06-02-2013 tetanus toxoid, reduced diphtheria toxoid, and acellular pertussis vaccine, adsorbed [facility] 06-26-2010 influenza virus vaccine, unspecified formulation [facility] 06-26-2010 influenza virus vaccine, whole virus Chiara Penny Other [facility] Other 11-05-1999 Td, unspecified formulation [facility] 11-05-1999 tetanus and diphtheria toxoids, adsorbed, preservative free, for adult use (5 Lf of tetanus toxoid and 2 Lf of diphtheria toxoid) Chiara Penny Other [facility] Other NEGATED: Highlighted row has not occurred! 3 Flu Shot - Documentation Purposes Only Patient Objection Chiara Penny Other [facility] Other NEGATED: Highlighted row has not occurred! 3 influenza, seasonal, injectable Patient Objection Chiara Penny Other [facility] Other NEGATED: Highlighted row has not occurred! 3 Prevnar 20 Patient Objection Chiara Zohaib Other [facility] Other Payers Date Payer Category Payer Self-pay 2022 Unknown [id number] 2021 Medicare [id number] 2021 Medicare MEDICARE MEDICAR E PART A & B [id number] 2021-Present [phone] [address] [place] [address] [id number] 2021 Unknown [id number] 2021 Unknown [employer] [id number] 2021-Present [phone] [id number] [employer] [place] [address] [id number] 2018 Unknown [id number] 1956 Unknown [id number] 1956 Unknown [id number] 1956 Unknown [id number] 1956 Unknown [id number] Unknown [id number] Unknown [id number] Unknown [id number] Social History Date Type Detail Facility Start: 07-29-2020 Tobacco smoking status NHIS Former smoker [place], [place] Start: 02-01-2023 End: 02-01-2023 History of tobacco use Current smoker [place] Start: 07-29-2020 End: 10-10-2020 Cigarettes smoked current (pack per day) - Reported [place] Start: 07-29-2020 End: 08-17-2023 Tobacco use and exposure Never used [place] Start: 07-29-2020 End: 08-17-2023 Alcohol intake Current drinker of alcohol (finding) [place] Start: 07-29-2020 History SDOH Financial 5 [place] Start: 07-29-2020 History SDOH Food Worry 1 [place] Start: 10-23-2011 Alcohol Comment occassional [place] Start: 1955 Sex Assigned At Not on file [place] Exposure to SARS-CoV -2 (event) Not sure [place] Start: 10-10-2020 End: 08-17-2023 Sex Assigned At [facility] Other Start: 1955 Sex Assigned At Female [facility] Start: 08-17-2023 Tobacco smoking status NHIS Smokes tobacco daily [facility] Housing Instability Unknown [facility] Start: 09-22-2017 Alcohol Comment socially [facility] Medical Equipment Procedure Code Equipment Code Equipment Origin al Text Equipment Identifier Dates T2DM, use up to three times daily as needed [id number] Start: 07-11-2019 T2DM, use up to three times daily as needed [id number] Start: 07-11-2019 Goals Date Patient Goal Desired Activity /State Clinical Notes 11-12-2022 to 09-16-2023 Telephone Encounter - Antoni Watson RN - 09/16/2023 11:36 AM ESTTelephone Encounter - Antoni Watson RN - 09/16/2023 11:36 AM EST Note Date & Type Note Facility 09-16-2023 Miscellaneous Notes Formattin g of this note might be different from the original. Received order from Leslye at the office. Patient scheduled for cath on 09/23/23 at 130pm at [facility] with TLM. Notified Leslye. documented in this encounter [facility] 09-16-2023 Telephone encount er Note Received order from Leslye at the office. Patient scheduled for cath on 09/23/23 at 130pm at [facility] with TLM. Notified Leslye. [facility] 07-08-2023 Evaluation note Encounter Date Diagnosis Assessment Notes Jun, Coronary artery disease (ICD-10 - I25.10) [facility] Other 10-04-2023 Evaluation note* Encounter Date Diagnosis Assessment Notes Treatment Notes Treatment Clinical Notes May, Hyperlipidemia (ICD-10 - E78.5) Resistant to statin medication due to concern for potential side effects. Recommend cardiac calcium score for risk stratification. Discussed recommendation for statin in setting of DM to reduce custodial risk of CVD. [facility] Other 09-20-2023 Evaluation note* Encounter Date Diagnosis Assessment Notes Treatment Notes Treatment Clinical Notes Apr, Medicare annual wellness visit, initial (ICD-10 - Z00.00) Personalized health advice was given to the beneficiary including a written plan for screenings discussed and provided. Advanced care planning reviewed and/or information given as requested. Additional counseling was provided here today in regards to, [ ]. The above visit was performed by Madelaine MURILLO under direct supervision of Dr. Chiara Penny DO. Document reviewed and amended by provider signed below. Due for screening lab work Has mammogram order UTD on colonoscopy Will consider DEXA Apr, Type 2 diabetes mellitus without complication, without long-term current use of insulin (ICD-10 - E11.9) Apr, Bilateral hip pain (ICD-10 - M25.551) Lateral hip pain, discussed ?IT band syndrome, tronchanteric bursitis or OA hips. Would recommend hip stretches and exercises, provided with handout. Can continue Tylenol PRN. Consider PT or ortho referral if not improving Apr, Seasonal allergies (ICD-10 - J30.2) Apr, Essential hypertension (ICD-10 - I10) Apr, Other Hip osteoarthri tis exercises material was printed [facility] Other 09-20-2023 Evaluation note* Encounter Date Diagnosis Assessment Notes Treatment Notes Treatment Clinical Notes Apr, Breast cancer screening (ICD-10 - Z12.39) Apr, Post-menopausal (ICD-10 - Z78.0) [facility] Encounter Date Diagnosis Assessment Notes Treatment Notes Treatment Clinical Notes Oct, Type 2 diabetes mellitus without complication, without long-term current use of insulin (ICD-10 - E11.9) DM well controlled on current dose of metformin, will continue Oct, Breast cancer screening (ICD-10 - Z12.39) Oct, History of colon polyps (ICD-10 - Z86.010) Oct, Essential hypertension (ICD-10 - I10) BP elevated today, per pt has been well controlled. Will continue current meds and recommend checking home BP readings. To f/u if remains elevated. Oct, Hyperlipidemia (ICD-10 - E78.5) Tolerating statin, will obtain records of lab work done this past fall from prior PCP [facility] Other Evaluation noteNo [facility] [employer] Other Evaluation noteNo assessment information available [facility] Work Phone: History and physical note Author Vaibhav Nelson [facility] February 01, 2023 9:31am Note Date/Time February 01, 2023 9:31a m [facility] [address] [place] [address] Gastroenterology H&P Signed Patient: Nelia Alvarado MR#: [id number] : 1955 Acct:[id number] Age/Sex: 67 / F Adm Date: 3 Loc: Room: Type: [facility] Attending Dr: Vaibhav Nelson MD Copies to: Chiara Penny, DO Vaibhav Nelson MD~ Date of Service: 02/01/2023 HISTORY & PHYSICAL: Patient's history with special attention to the cardiovascular, pulmonary systems and the current problem was reviewed with the patient immediately prior to the procedure. Present medications and doses reviewed in the EMR. Allergies and pertinent laboratory tests were also reviewedat this time in the EMR. The physical examination, as below, was then performed. Indication, assessment and HPI: 67-year-old female with history of colonic polyps here for surveillance colonoscopy Family history of GI malignancy? No PHYSICAL EXAMINATION Mouth and Pharynx : Moist mucus membranes, normal dentition Cardiac: Regular rate, regular rhythm Pulmonary: Clear to auscultation bilaterally, no wheezing Neurological: Alert and oriented x3, no focal deficits noted Abdomen: Abdomen soft, non-tender REVIEW OF SYSTEMS Constitutional: Denies malaise, fevers Cardiovascular: Denies chest pain, palpitations Respiratory: Denies shortness of breath, wheezing Gastrointestinal: Per HPI Genitourinary: Denies dysuria, polyuria Musculoskeletal: Denies joint swelling, joint stiffness Neurological: Denies numbness, tingling Integumentary: Denies rashes, skin lesions Endocrine: Denies fatigue, weight loss Written informed consent obtained from the patient. Risks (including but not limited to perforation, infection, bloating, bleeding, need for emergent surgeryand loss of life), benefits and alternatives explained and questions answered. The patient verbalized understanding. Based on history patient is an appropriate candidate for the procedure. Vaibhav Nelson M.D. Documented By: aVibhav Nelson MD 02/01/23929 Signed By: <Electronically signed by Vaibhav Nelson MD> 02/01/23930 [facility] Work Phone: History general Narrative - Reported* Type Description Date Medical History HTN Medical History DM type 2 Surgical History appendectomy Surgical History tonsilectomy Surgical History adenoidectomy Surgical History PHILIP ankle sx Surgical History x 2 Surgical History back sx in L5, S1 Hospitalization History see above Hospitalization History child x 2 Hospitalization History HTN [facility] Other Hospital Discharge instructions Additional Instructions DISCHARGE INSTRUCTIONS FOR COLONOSCOPY WHAT TO EXPECT: - You may feel full, gassy or cramping after your procedure. In some cases, this may be from a few hours to a day. Walking may help relieve the discomfort. - If you have polyp(s) removed you may note some minor bloody discharge after your first bowel movements. - You should begin to recover from anesthesia within 1 hour of the procedure, however may feel groggy for the next 24 hours. DO's AND DON'Ts: - Call your doctor right away if you have a hard abdomen, severe pain, are passing lots of bright red blood or clots. - Call your doctor if you develop any rashes, hives or difficulty breathing. - Let your doctor know if you have not had a bowel movement by 3 days after your procedure. - If you take 81 mg aspirin for your heart it is safe to resume this medication. - If you take other blood thinner medications your doctor will instruct you when these can safely be resumed. - Do NOT drive for 24 hours. - Do NOT operate machinery such as power tools, lawn mowers, snow blowers, sewing machines, etc. for 24 hours. - Avoid alcoholic beverages and drugs for allergies, nerves, or sleep. - Do NOT stay alone. Do NOT leave your child unattended. - Do NOT make important personal or business decisions or sign any legal documents. - Eat solid foods and drink liquids in smaller amounts than usual until normal appetite returns. If you should experience an upset stomach, liquids high in sugar content (soda, Solitario-Aid, non-acid juices) are recommended. - You can resume normal activities tomorrow. FOLLOW UP & RECOMMENDATIONS: -Notify the doctor if you have any problems. -Repeat colonoscopy based on polyp pathology -Follow up with PCP. -Office number [phone]. [facility] Work Phone: InstructionsNot on filedocumented in this encounter [facility] Assessments Diagnosis Controlled type 2 diabetes mellitus with complication, without long-term current use of insulin (HCC) Advance Directives No Advanced Directives Records FoundDocuments on File Type Date Recorded Patient Insulation Technician Expl anation ACP-Advance Directive ACP-Power of Insurance Agency Manager Advance Directive Response Recorded Date/ Time Advance Directives No February 01 3 8:11am Advance Directive Response Recorded Date/ Time Advance Directives No February 01 3 7:11am Summary Purpose Family History No Family History Records Found Relationship Condition Age at Onset Recorded Date/T yecenia father Dementia Unknown Heart disease Unknown Not Specified Dementia Unknown Reason for Referral Reason * Waiting for appt need for screening colonoscopy, prefer [facility] if available Diagnosis 1 History of colon katherine yps (Z86.010) Referral Organization [facility] [place] Referring Provider First Name Chiara Referring Provider Last Name Zohaib Referring Provider Specialty Family Medi cine Referred Organization [facility] Gastroenterolo gy Referred Provider Boy Ho Referred Address [address] [address] ,[place], [place],[address] Referred Provider Specialty Gastroentero logy Referral Priority Routine General Notes Triny Berry 01:36:07 PM > referral received and sent p2p successful per log Chief Complaint and Reason for Visit Chief Complaint Hx of Colon Polyps Chief Complaint E11.9 E78.5 Additional Source Comments INFORMATION SOURCE (unrecogn ized section and content) DATE CREATED AUTHOR 07/31/2020 [facility] DATE CREATED AUTHOR AUTHOR'S ORGANIZ ATION 07/08/2023 [facility] DATE CREATED AUTHOR AUTHOR'S ORGANIZ ATION 09/18/2023 [facility] REASON FOR VISIT (unrecogniz ed section and content) Reason Onset Date Comments Cardiac Cath 09/16/2023 Care Teams (unrecognized sec tion and content) Team Status: Active Member Role Status Dates Chiara Penny DO Primary Care Provider Active Team Status: Inactive Member Role Status Dates Vaibhav Nelson MD Attending Provider Active Chiara Penny DO Primary Care Provider Active Team Status: Inactive Member Role Status Dates Chiara Penny DO Primary Care Provider, Attending Seth ruiz Active 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 This clinical summary was aggregated from multiple sources. Caution should be exercised in using it in the provision of clinical care. This summary normalizes information from multiple sources, and as a consequence, information in this document may materially change the coding, format and clinical context of patient data. In addition, data may be omitted in some cases. CLINICAL DECISIONS SHOULD BE BASED ON THE PRIMARY CLINICAL RECORDS. [facility]. provides no warranty or guarantee of the accuracy or completeness of information in this document.
[2023-09-20 15:59] LABS: Basophils Absolute Auto 0.1 10^3/uL (0.0-0.1); Basophils Percent Auto 0.8 % (0.2-2.0); Eosinophils Absolute Auto 0.3 10^3/uL (0.0-0.7); Eosinophils Percent Auto 2.8 % (0.9-7.0); Hematocrit 37.6 % (36.0-48.0); Hemoglobin 11.9 g/dL (12.0-16.0); Immature Granulocytes Abs Auto 0.02 10^3/uL (0.00-0.03); Immature Granulocytes Pct Auto 0.2 % (0.0-0.5); Lymphocytes Absolute Auto 2.6 10^3/uL (1.2-3.8); Lymphocytes Percent Auto 25.9 % (20.5-60.0); Mean Corpuscular HGB Conc 31.6 g/dL (29.9-35.2); Mean Corpuscular Hemoglobin 30.2 pg (26.7-34.0); Mean Corpuscular Volume 95.4 fL (81.0-99.0); Mean Platelet Volume 9.9 fL (9.5-13.5); Monocytes Absolute Auto 0.6 10^3/uL (0.3-0.8); Neutrophils Absolute Auto 6.4 10^3/uL (1.4-6.5); Neutrophils Percent Auto 64.3 % (43.0-75.0); Platelet Count 368 10^3/uL (150-450); Red Blood Count 3.94 10^6/uL (4.20-5.40); Red Cell Distribution Width 13.1 % (11.0-15.0); White Blood Count 9.9 10^3/uL (4.0-11.0)
[2023-09-20 16:11] LABS: Anion Gap 10.2; BUN Creatinine Ratio 28.2; Calcium 9.4 mg/dL (8.5-10.1); Carbon Dioxide 29.5 mmol/L (21.0-32.0); Chloride 103 mmol/L (98-107); Estimated GFR (African America 49 (>=60); Estimated GFR (Non-African Ame 40 (>=60); Glucose 129 mg/dL (74-106); Potassium 3.7 mmol/L (3.5-5.1); Sodium 139 mmol/L (136-145)
== END 2023-09-20 15:34 | disposition home or self-care (01) ==
LOC: LAB 15:35
PROVIDERS: PCP Family Medicine
DX: R93.1 Abnormal findings on diagnostic imaging of heart and coronary circulation (principal)
CPT/HCPCS: 36415; 80048; 85025

== ENCOUNTER 2023-11-03 12:58 | Outpatient (OUT) | payer MEDICARE, OTHER, SELFPAY ==
--- NOTE | 2023-11-03 13:05 | VEIN_ITS ---
Patient Name: PETRONA BURNS MR#: [id number] : 1955 Exam Date: 11/03/2023 Ordering Doctor: PADMINI POTTS M.D. RADIOLOGY REPORT PROCEDURE: VC EXT VENOUS REFLUX PHILIP LMTD COMPARISON: None. INDICATIONS: I83.813 Bilateral painful varicose veins TECHNIQUE: Duplex imaging of the lower extremity to assess the deep and superficial venous system for the presence of deep or superficial venous incompetence and to document the location and severity of disease. The study includes evaluation of the great saphenous vein (GSV), anterior accessory saphenous vein (AASV) and small saphenous vein (SSV). Patient scanned in reverse Trendelenburg and standing. FINDINGS: RIGHT LOWER EXTREMITY: Saphenofemoral Junction Reflux: Yes 6.6mm 3.9 sec GSV: Diam (mm) Reflux/ Time (sec) Proximal Thigh 5.8 Yes 0.8 Mid Thigh 3.7 Yes 0.3 Distal Thigh 3.1 Yes 0.4 Prox Calf 2.3 Yes 0.2 Mid Calf 2.4 Yes 0.1 Saphenopopliteal Junction Reflux: 3.8mm Yes 0.2 SSV: Proximal Calf 2.7 Yes 0.4 Mid Calf 2.4 Yes 0.2 AASV: Proximal Thigh 2.8 No Mid Thigh 2.2 Yes 0.2 Distal Thigh Thrombi: No acute or chronic thrombus. Compressibility: Normal. Flow: Mild deep venous reflux. Preforator: Mid medial lower leg measures 2.4 mm with 0.4s reflux. Tech Note: Incompetent varicose vein proximal medial lower leg measures 3.1 mm with 0.2s reflux. Proximal medial lower leg varicose vein measures 1.5 mm with 0.2s reflux. LEFT LOWER EXTREMITY: Saphenofemoral Junction Reflux: Yes 7.4 mm 1.4 sec GSV: Diam (mm) Reflux/Time (sec) Proximal Thigh 5.8 Yes 1.0 Mid Thigh 3.7 Yes 0.4 Distal Thigh 4.5 Yes 0.8 Prox Calf 3.6 Yes 0.2 Mid Calf 2.2 Yes 0.4 Saphenopopliteal Junction Relux: 2.1 mm Yes 0.2 SSV: Proximal Calf 1.4 No Mid Calf 2.2 Yes 0.1 AASV: Proximal Thigh 2.9 Yes 0.3 Mid Thigh 2.6 Yes 0.4 Distal Thigh Thrombi: No acute or chronic thrombus. Compressibility: Normal. Flow: Mild deep venous reflux. [employer]: Distal medial lower leg measures 2.3 mm without reflux. Tech Note: Incompetent varicose vein mid medial lower leg measures 1.4 mm without reflux. Proximal medial lower leg varicose vein measures 1.8 mm with 0.6s reflux. CONCLUSION: 1. Mild bilateral great saphenous vein venous insufficency Dictated by: Greg Conde MD on 11/03/2023 at 14:47 Approved by: Greg Conde MD on 11/03/2023 at 14:50
--- OUTSIDE RECORDS SUMMARY | 2023-11-03 13:24 | XMS_ITS | CCD ---
Author Name Unknown Address [address] [place] [address] Organization [facility] Care Team Providers Care Stable Cleaner Name Role Phone Mil Leiva Primary Care Provider EDGARD MANUEL Referring Unavailable MIL LEIVA Primary Care Unavailable Penny, Chiara Unavailable Asaad, Imad Unavailable MD Vaibhav Nelson Attending Provider [phone] DO Zohaib Chiara A Primary Care Provider Zohaib, Chiara A Primary Care Provider Penny, DO Chiara A Attending Provider [phone] Penny, DO Chiara A Primary Care Provider Penny, DO Chiara A Attending Provider [phone] Asaad, Imad Attending Unavailable Penny, Chiara A Primary Care Unavailable Asaad, Imad Admitting Unavailable Penny, Chiara A Admitting Unavailable Penny, Chiara A Primary Care Unavailable Penny, Chiara A Attending Unavailable Penny, Chiara A Admitting Unavailable Penny, Chiara A Primary Care Unavailable Zohaib, Chiara A Attending Unavailable Peng Harrell DO A Primary Care Provider Unava ilChiara Fierro MD A Primary Care Provider LISA WILSON Referring Unavailable PENG HARRELL Primary Care Unavailable LISA WILSON Referring Unavailable PENG HARRELL Primary Care Unavailable LISA WILSON Referring Unavailable PENG HARRLEL Primary Care Unavailable LISA WILSON Attending Unavailable LISA WILSON Referring Unavailable CHIARA PENNY Primary Care Unavailable LISA WILSON Admitting Unavailable LISA WILSON Attending Unavailable PENG HARRELL Primary Care Unavailable LISA WILSON Attending Unavailable PENG HARRELL Referring Unavailable PENG HARRELL Primary Care Unavailable RICO NAIK Attending Unavailable CHIARA PENNY Referring Unavailable CHIARA PENNY Primary Care Unavailable MURRAY PARIS Attending Unavailable RICO NAIK Referring Unavailable CHIARA PENNY Primary Care Unavailable Medications Current Medications Medication Drug Class(es) Dates Sig (Normalized) Sig (Original) aspirin 81 mg delayed release oral tablet (8 sources) Platelet Aggregation Inhibitor, Nonsteroidal Anti-inflammatory Drug take 1 tablet by mouth in the morning aspirin 81 mg Take 1 tablet (81 mg total) by mouth in the morning. 0 Active cetirizine hydrochloride 10 mg chewable tablet (17 sources) Histamine-1 Receptor Antagonist cetirizine (ZyrTEC) 10 MG chewable tablet Chew 1 tablet (10 mg total) and swallow in the morning. 0 Active take 1 tablet by noemi th every twenty-four hours Cetirizine HCl 10 MG 1 tablet Orally Onc e a day for 90 days PRN Active ubidecarenone 100 mg oral tablet (8 sources) take 1 capsule by mo uth [...] / losartan potassium 50 mg oral tablet (20 sources) Thiazide Diuretic, Angiotensin 2 Receptor Livan Start: 2016 take 1 tablet by mouth once daily losartan-hydrochlor othiazide (HYZAAR) 50-12.5 mg per tablet Take 1 tablet by mouth once daily. 0 02/17/2017 Active metFORMIN hydrochloride 500 mg oral tablet (20 sources) Biguanide Start: 2019 take 500 mg by mouth once daily Metformin Active 500 MG PO Daily January 31, 2023 11:00pm take 1 tablet by noemi th once daily at breakfast metFORMIN (FORTAMET) 500 MG (OSM) 24 hr tablet Take 1 tablet (500 mg total) by mouth daily with breakfast. 0 Active 24 hr metoprolol succinate 50 mg extended release oral tablet (20 sources) beta-Adrenergic Livan Start: 02-25-2017 take 1 tablet by mouth once daily metoprolol succinate XL (TOPROL-XL) 50 mg 24 hr tablet Take 1 tablet (50 mg total) by mouth once daily. 0 02/25/2017 Active Multiple Vitamin (MULTI-VITAMIN PO) (1 source) Multiple Vitamin (MULTI-VITAMIN PO) Take by mouth. 0 Active MULTIVITAMIN ORAL (7 sources) take 1 tablet by mouth once daily MULTIVITAMIN ORAL Take 1 tablet by mouth daily. 0 Active omega 2-juf-hll-fish oil 1,000 mg (120 mg-180 mg) capsule (7 sources) take 1 capsule by mouth in the morning omega 0-vzu-scb-fish oil 1,000 mg (120 mg-180 mg) capsule Take 1 capsule by mouth in the morning. 0 Active rosuvastatin calcium 20 mg oral tablet (20 sources) HMG-CoA Reductase Inhibitor Start: 09-24-2023 take 1 tablet by mouth once daily rosuvastatin (CRESTOR) 20 mg tablet Indications: Hyperlipidemia, unspecified hyperlipidemia type Take 1 tablet (20 mg total) by mouth once daily. 90 tablet 3 09/28/2023 Active Start: 07-13-2023 take 1 tablet by noemi th every twenty-four hours Rosuvastatin Calcium 10 MG 1 tablet Orally Once a day for 90 days Jun, Active Start: 02-24-2017 End: 09-24-2023 take 0.5 tablet by mouth once daily rosuvastatin (CRESTOR) 20 mg tablet Take 0.5 tablets (10 mg total) by mouth once daily. 1 02/24/2017 09/24/2023 Discontinued (Reorder) Start: 02-24-2017 take 20 mg by mouth once daily Rosuvastatin Active 20 MG PO Daily January 31, 2023 11:00pm traMADol hydrochloride 50 mg oral tablet (8 sources) Opioid Agonist Start: 07-29-2020 End: 08-01-2020 [...] Sig (Normalized) Sig (Original) polyethylene glycol 3350 316393 mg / potassium chloride 2970 mg / sodium bicarbonate 6740 mg / sodium chloride 5860 mg / sodium sulfate 50430 mg powder for oral solution (6 sources) Osmotic Laxative Start: 11-24-2022 PEG-3350/Electroly lissy 236 GM as directed Orally once daily for 1 days Oct, Not-Taking Problems Active Problems Problem Classification Problem Date Documented Date Episodic/Chronic Cardiac dysrhythmias (1 source) Unspecified atrial fibrillation; Translations: [Unspecified atrial fibrillation] Onset: 3 Chronic Chronic kidney disease (8 sources) Chronic kidney disease; Translations: [Chronic kidney disease, unspecified] Onset: 7 10-23-2011 Chronic Coronary atherosclerosis and other heart disease (3 sources) Coronary arteriosclerosis; Translations: [Atherosclerotic heart disease of [place] coronary artery without angina pectoris] Chronic Diabetes mellitus without complication (20 sources) Type 2 diabetes mellitus; Translations: [Type 2 diabetes mellitus without complication] Onset: 7 10-22-2016 Chronic Disorders of lipid metabolism (20 sources) Mixed hyperlipidemia; Translations: [Hyperlipidemia] Onset: 7 10-23-2011 Chronic Esophageal disorders (8 sources) Gastroesophageal reflux disease; Translations: [Gastro-esophageal reflux disease without esophagitis] Onset: 7 10-23-2011 Chronic Essential hypertension (20 sources) Essential hypertension; Translations: [Essential (primary) hypertension] Onset: 6 06-19-2016 Chronic Nonspecific chest pain (2 sources) Precordial pain; Translations: [Precordial pain] Onset: 3 Episodic Occlusion or stenosis of precerebral arteries (8 sources) Right carotid artery stenosis; Translations: [Occlusion and stenosis of right carotid artery] Onset: 4 10-13-2023 Chronic Osteoarthritis (8 sources) Osteoarthritis; Translations: [Unspecified osteoarthritis, unspecified site] Onset: 7 Resolved: 9 09-30-2018 Chronic Other and unspecified benign neoplasm (10 sources) History of polyp of colon; Translations: [Personal history of colonic polyps] Episodic Other and unspecified benign neoplasm (1 source) Personal history of colonic polyps Episodic Other circulatory disease (7 sources) Carotid bruit; Translations: [Other specified symptoms and signs involving the circulatory and respiratory systems] Onset: 3 08-17-2023 Episodic Other circulatory disease (2 sources) Other specified symptoms and signs involving the circulatory and respiratory systems; Translations: [Other specified symptoms and signs involving the circulatory and respiratory systems] Onset: 3 Episodic Other non-traumatic joint disorders (1 source) Pain in right hip Episodic Other screening for suspected conditions (not mental disorders or infectious disease) (20 sources) Electrocardiogram abnormal; Translations: [Encounter for other screening for malignant neoplasm of breast] Onset: 3 Resolved: 9 09-30-2018 Episodic Other upper respiratory disease (8 sources) Allergic rhinitis; Translations: [Allergic rhinitis, unspecified] [...] for malignant neoplasm of colon] Onset: 3 Unclassified (1 source) Abnormal CTA COrs Onset: 4 Unclassified (1 source) Carotid Artery Disease Onset: 4 Unclassified (1 source) New Patient Onset: 3 Varicose veins of lower extremity (4 sources) Varicose veins of lower extremity; Translations: [Varicose veins of bilateral lower extremities with pain] Onset: 4 10-21-2023 Episodic Past or Other Problems Problem Classification Problem Date Documented Date Episodic/Chronic Genitourinary symptoms and ill-defined conditions (9 sources) Microalbuminuria; Translations: [Blood in urine] Onset: 10-22-2016 Resolved: 09-30-2018 09-30-2018 Episodic Other and unspecified benign neoplasm (1 source) Benign neoplastic disease; Translations: [Multiple adenomatous polyps] Onset: 09-28-2017 Resolved: 09-30-2018 09-30-2018 Episodic Other connective tissue disease (8 sources) Lateral epicondylitis; Translations: [Lateral epicondylitis, unspecified elbow] Onset: 10-23-2011 Resolved: 05-16-2018 05-16-2018 Episodic Other connective tissue disease (7 sources) Pain in thumb ; Translations: [Pain in unspecified finger(s)] Onset: 07-24-2012 03-09-2017 Episodic Other connective tissue disease (1 source) Pain in right thumb; Translations: [Pain of right thumb] Onset: 07-24-2012 Resolved: 09-30-2018 09-30-2018 Other non-traumatic joint disorders (7 sources) Pain in wrist; Translations: [Pain in unspecified wrist] Onset: 07-24-2012 03-09-2017 Episodic Other non-traumatic joint disorders (1 source) Pain of right wrist; Translations: [Right wrist pain] Onset: 07-24-2012 Resolved: 05-16-2018 05-16-2018 Other skin disorders (8 sources) Loss of hair; Translations: [Nonscarring hair loss, unspecified] Onset: 06-20-2016 Resolved: 09-30-2018 09-30-2018 Episodic Spondylosis; intervertebral disc disorders; other back problems (1 source) Degeneration of intervertebral disc; Translations: [DDD (degenerative disc disease)] Resolved: 09-30-2018 09-30-2018 Chronic Spondylosis; intervertebral disc disorders; other back problems (8 sources) Chronic low back pain; Translations: [Narrowing of intervertebral disc space] Onset: 03-09-2017 06-18-2017 Episodic Results Test Name Value Interpretation Reference Range Facility [facility] Physicians Muriel Gutierrez 10-21-2023 [facility] Glucose Glucometer (BldC) [M ass/Vol]on 09-23-2023 Glucose [Mass/Vol] 97 mg/dL Normal 65-99 [facility] CT CTA COR ARTERIES W OR WO [...] an independent workstation.. CT Derived Fractional Flow [place] (FFRct) Analysis: FFRct is only obtained on [...] specific isch (more content not included)... Normal [facility] [address] FFRCT HEARTFLOW [...] an independent workstation.. CT Derived Fractional Flow [place] (FFRct) Analysis: FFRct is only obtained on [...] the right (more content not included)... Normal [facility] Creatinine (Bld) [Mass/Vol]o n 09-14-2023 Creatinine [Mass/Vol] 1.6 mg/dL High 0.4-1.0 [facility] Comment on above: Result Comment: METH OD TRACEABLE TO IDMS STANDARD Performed By: #### 3 8483-4 #### SELMA DILL ([id number]) [address] [place] [address], GFR/1.73 sq M.predicted among non-blacks MDRD (S/P/Bld) [Vol rate/Area] 35 mL/min/{1.73_m2} Low >59 [facility] Comment on above: Result Comment: Reported eGFR is based on the CKD-EPI 2020 equation that does not use a race coefficient. Performed By: #### 3 8483-4 #### SELMA DILL ([id number]) [address] [place] [address], CT heart calcium score woon 07-07-2023 CT heart calcium score wo [facility] Main [place] [address] [place] [address] CT Scan Report Signed Patient: Nelia Alvarado MR#: [id number] : 1955 Acct:[id number] Age/Sex: 68 / F ADM Date: 07/07/23 Loc: CT Room: Type: [facility] Attending Dr: Chiara Penny DO Copies [...] Mil Naranjo M.D.07/07/2023 4:49 PM Dictation Location: [place] [address] Transcribed By: [facility] 07/07/23 164 Dictated By: Mil Naranjo II, MD 07/07/23 1639 Signed By: 07/07/23 1649 Normal [facility] A1C HEMOGLOBINon 05-19-2023 HbA1c (Bld) [Mass fraction] 6.2 % [employer] Other Alanine aminotransferase [En zymatic activity/volume] in Serum or PlasmaOrdered By: Chiara Penny on 05-19-2023 ALT [Catalytic activity/Vol] 14 U/L 7-52 [facility] Albumin [Mass/volume] in Ser um or Plasma by Bromocresol green (BCG) dye binding methoOrdered By: Chiara Penny on 05-19-2023 Albumin BCG dye [Mass/Vol] 4.4 g/dL 3.5-5.7 [facility] Alkaline phosphatase [Enzyma tic activity/volume] in Serum or PlasmaOrdered By: Chiara Penny on 05-19-2023 ALP [Catalytic activity/Vol] 50 U/L 34-104 [facility] Aspartate aminotransferase [ Enzymatic activity/volume] in Serum or PlasmaOrdered By: Chiara Penny on 05-19-2023 AST [Catalytic activity/Vol] 15 U/L 13-39 [facility] Bilirubin.total [Mass/volume ] in Serum or PlasmaOrdered By: Chiara Penny on 05-19-2023 Bilirubin [Mass/Vol] 0.3 mg/dL 0.3-1.0 [facility] Calcium [Mass/volume] in Ser um or PlasmaOrdered By: Chiara Penny on 05-19-2023 Calcium [Mass/Vol] 10.1 mg/dL 8.6-10.3 [facility] Carbon dioxide, total [Moles /volume] in Serum or PlasmaOrdered By: Chiara Penny on 05-19-2023 CO2 [Moles/Vol] 31.1 mmol/L 21.0-31.0 [facility] Chloride [Moles/volume] in S radha or PlasmaOrdered By: Chiara Penny on 05-19-2023 Chloride [Moles/Vol] 101 mmol/L 98-107 [facility] Cholesterol [Mass/volume] in Serum or PlasmaOrdered By: Chiara Penny on 05-19-2023 Cholesterol [Mass/Vol] 332 mg/dL 140-200 [facility] Comment on above: Chol less than 200 m g/dl low riskChol 201-239 mg/dl borderline riskChol 240 mg/dl and greater high risk Cholesterol in LDL Calc [Mas s/Vol]Ordered By: Chiara Penny on 05-19-2023 Cholesterol in LDL [Mass/Vol] 226 mg/dL 0-100 [facility] Comment on above: LDL ATP III CLASSIFI CATIONLDL less than 100 mg/dL OptimalLDL 100-129 mg/dL Near or above optimalLDL 130-159 mg/dL Borderline highLDL 160-189 mg/dL HighLDL greater than 189 mg/dL Very high Cholesterol in VLDL Calc [Ma ss/Vol]Ordered By: Chiara Penny on 05-19-2023 Cholesterol in VLDL [Mass/Vol] 65 mg/dL [facility] Comprehensive Metabolic Pane frederick 05-19-2023 Albumin [Mass/Vol] 4.4 g/dL Normal 3.5-5.7 [facility] Comment on above: Order Comment: Reaso n for Exam Type 2 diabetes mellitus without complication, without long- FASTING. JKW Performed By: #### L IPID, URMA, CMP, CBCNO #### [facility] [address] [place] [id number] [place] Albumin/Globulin [Mass ratio] 1.6 {ratio} Normal [facility] Comment on above: Order Comment: Reaso n for Exam Type 2 diabetes mellitus without complication, without long- FASTING. JKW Performed By: #### L IPID, URMA, CMP, CBCNO #### [facility] [address] [place] [id number] [place] ALP [Catalytic activity/Vol] 50 U/L Normal 34-104 [facility] Comment on above: Order Comment: Reaso n for Exam Type 2 diabetes mellitus without complication, without long- FASTING. JKW Performed By: #### L IPID, URMA, CMP, CBCNO #### [facility] [address] [place] [id number] [place] ALT [Catalytic activity/Vol] 14 U/L Normal 7-52 [facility] Comment on above: Order Comment: Reaso n for Exam Type 2 diabetes mellitus without complication, without long- FASTING. JKW Performed By: #### L IPID, URMA, CMP, CBCNO #### [facility] [address] Anion gap [Moles/Vol] 11.3 mmol/L Normal 6.0-15.0 [facility] Comment on above: Order Comment: Reaso n for Exam Type 2 diabetes mellitus without complication, without long- FASTING. JKW Performed By: #### L IPID, URMA, CMP, CBCNO #### [facility] [address] AST [Catalytic activity/Vol] 15 U/L Normal 13-39 [facility] Comment on above: Order Comment: Reaso n for Exam Type 2 diabetes mellitus without complication, without long- FASTING. JKW Performed By: #### L IPID, URMA, CMP, CBCNO #### [facility] [address] [place] [address] [place] Bilirubin [Mass/Vol] 0.3 mg/dL Normal 0.3-1.0 [facility] Comment on above: Order Comment: Reaso n for Exam Type 2 diabetes mellitus without complication, without long- FASTING. JKW Performed By: #### L IPID, URMA, CMP, CBCNO #### [facility] [address] [place] [address] [place] Calcium [Mass/Vol] 10.1 mg/dL Normal 8.6-10.3 [facility] Comment on above: Order Comment: Reaso n for Exam Type 2 diabetes mellitus without complication, without long- FASTING. JKW Performed By: #### L IPID, URMA, CMP, CBCNO #### [facility] [address] [place] [id number] [place] Chloride [Moles/Vol] 101 mmol/L Normal 98-107 [facility] Comment on above: Order Comment: Reaso n for Exam Type 2 diabetes mellitus without complication, without long- FASTING. JKW Performed By: #### L IPID, URMA, CMP, CBCNO #### [facility] [address] CO2 [Moles/Vol] 31.1 mmol/L High 21.0-31.0 [facility] Comment on above: Order Comment: Reaso n for Exam Type 2 diabetes mellitus without complication, without long- FASTING. JKW Performed By: #### L IPID, URMA, CMP, CBCNO #### [facility] [address] Creatinine [Mass/Vol] 1.17 mg/dL Normal 0.60-1.20 [facility] Comment on above: Order Comment: Reaso n for Exam Type 2 diabetes mellitus without complication, without long- FASTING. JKW Performed By: #### L IPID, URMA, CMP, CBCNO #### [facility] [address] GFR/1.73 sq M.predicted MDRD (S/P/Bld) [Vol rate/Area] 51.144 mL/min/{1.73_m2} Normal [facility] Comment on above: Order Comment: Reaso n for Exam Type 2 diabetes mellitus without complication, without long- FASTING. JKW Performed By: #### L IPID, URMA, CMP, CBCNO #### [facility] [address] Globulin (S) [Mass/Vol] 2.8 g/dL Normal [facility] Comment on above: Order Comment: Reaso n for Exam Type 2 diabetes mellitus without complication, without long- FASTING. JKW Performed By: #### L IPID, URMA, CMP, CBCNO #### [facility] [address] Glucose [Mass/Vol] 122 mg/dL High 70-100 [facility] Comment on above: Order Comment: Reaso n for Exam Type 2 diabetes mellitus without complication, without long- FASTING. JKW Result Comment: [facility] Glucose Reference Range is dependent on time and content of last meal. Glucose of more than 200 mg/dL in a nonstressed, ambulatory subject supports the diagnosis of Diabetes Mellitus. ADA recommended reference range Performed By: #### L IPID, URMA, CMP, CBCNO #### [facility] [address] Potassium [Moles/Vol] 4.4 mmol/L Normal 3.5-5.1 [facility] Comment on above: Order Comment: Reaso n for Exam Type 2 diabetes mellitus without complication, without long- FASTING. JKW Performed By: #### L IPID, URMA, CMP, CBCNO #### [facility] [address] Protein [Mass/Vol] 7.2 g/dL Normal 6.4-8.9 [facility] Comment on above: Order Comment: Reaso n for Exam Type 2 diabetes mellitus without complication, without long- FASTING. JKW Performed By: #### L IPID, URMA, CMP, CBCNO #### [facility] [address] [place] [id number] [place] Sodium [Moles/Vol] 139 mmol/L Normal 136-145 [facility] Comment on above: Order Comment: Reaso n for Exam Type 2 diabetes mellitus without complication, without long- FASTING. JKW Performed By: #### L IPID, URMA, CMP, CBCNO #### [facility] [address] [place] [id number] [place] Urea nitrogen [Mass/Vol] 20 mg/dL Normal 7-25 [facility] Comment on above: Order Comment: Reaso n for Exam Type 2 diabetes mellitus without complication, without long- FASTING. JKW Performed By: #### L IPID, URMA, CMP, CBCNO #### [facility] [address] [place] [id number] [place] Creatinine [Mass/volume] in Serum or PlasmaOrdered By: Chiara Penny on 05-19-2023 Creatinine [Mass/Vol] 1.17 mg/dL 0.60-1.20 [facility] Erythrocyte distribution wid th Auto (RBC) [Ratio]Ordered By: Chiara Penny on 05-19-2023 Erythrocyte distribution width (RBC) [Ratio] 13.2 % 11.9-15.3 [facility] Globulin Calc (S) [Mass/Vol] Ordered By: Chiara Penny on 05-19-2023 Globulin (S) [Mass/Vol] 2.8 g/dL [facility] Glucose [Mass/volume] in Ser um or PlasmaOrdered By: Chiara Penny on 05-19-2023 Glucose [Mass/Vol] 122 mg/dL 70-100 [facility] Comment on above: ADA recommended refe rence rangeRandom Glucose Reference Range is dependent on time and content of last meal. Glucose of more than 200 mg/dL in a nonstressed, ambulatory subject supports the diagnosis of Diabetes Mellitus. HbA1c (Bld) [Mass fraction]o n 05-19-2023 A1C HEMOGLOBIN [employer] Other Hematocrit Auto (Bld) [Volum e fraction]Ordered By: Chiara Penny on 05-19-2023 Hematocrit (Bld) [Volume fraction] 38.0 % 34.0-46.4 [facility] Hemoglobin [Mass/volume] in BloodOrdered By: Chiara Penny on 05-19-2023 Hemoglobin (Bld) [Mass/Vol] 12.7 g/dL 11.8-15.4 [facility] Hemogram CBC Without Diffon 05-19-2023 Erythrocyte distribution width (RBC) [Ratio] 13.2 % Normal 11.9-15.3 [facility] Comment on above: Order Comment: Reaso n for Exam Type 2 diabetes mellitus without complication, without long- Performed By: #### L IPID, URMA, CMP, CBCNO #### [facility] [address] Hematocrit (Bld) [Volume fraction] 38.0 % Normal 34.0-46.4 [facility] Comment on above: Order Comment: Reaso n for Exam Type 2 diabetes mellitus without complication, without long- Performed By: #### L IPID, URMA, CMP, CBCNO #### [facility] [address] [place] [address] Hemoglobin (Bld) [Mass/Vol] 12.7 g/dL Normal 11.8-15.4 [facility] Comment on above: Order Comment: Reaso n for Exam Type 2 diabetes mellitus without complication, without long- Performed By: #### L IPID, URMA, CMP, CBCNO #### [address] MCH (RBC) [Entitic mass] 30.7 pg Normal 24.7-34.3 [facility] Comment on above: Order Comment: Reaso n for Exam Type 2 diabetes mellitus without complication, without long- Performed By: #### L IPID, URMA, CMP, CBCNO #### [address] MCV (RBC) [Entitic vol] 92.2 fL Normal 80-[address] [facility] Comment on above: Order Comment: Reaso n for Exam Type 2 diabetes mellitus without complication, without long- Performed By: #### L IPID, URMA, CMP, CBCNO #### [address] Mean Corpuscular HGB Conc 33.3 g/dL Normal 32.0-35.0 [facility] Comment on above: Order Comment: Reaso n for Exam Type 2 diabetes mellitus without complication, without long- Performed By: #### L IPID, URMA, CMP, CBCNO #### [facility] [address] [place] [address] Platelet mean volume (Bld) [Entitic vol] 9.0 fL Normal 6.3-10.7 [facility] Comment on above: Order Comment: Reaso n for Exam Type 2 diabetes mellitus without complication, without long- Result Comment: PERF ORMED BY: [place] [id number] PATHOLOGIST HARDENING MACHINE OPERATOR HELPER HERMAN STOUT M.D. Performed By: #### L IPID, URMA, CMP, CBCNO #### [address] Platelets (Bld) [#/Vol] 332 10*3/uL Normal 150-450 [facility] Comment on above: Order Comment: Reaso n for Exam Type 2 diabetes mellitus without complication, without long- Performed By: #### L IPID, URMA, CMP, CBCNO #### [facility] [address] [place] [address] [place] RBC (Bld) [#/Vol] 4.12 10*6/uL Normal 3.60-5.00 [facility] Comment on above: Order Comment: Reaso n for Exam Type 2 diabetes mellitus without complication, without long- Performed By: #### L IPID, URMA, CMP, CBCNO #### [facility] [address] [place] [address] [place] WBC (Bld) [#/Vol] 8.4 10*3/uL Normal 3.8-11.6 [facility] Comment on above: Order Comment: Reaso n for Exam Type 2 diabetes mellitus without complication, without long- Performed By: #### L IPID, URMA, CMP, CBCNO #### [facility] [address] [id number] [place] Leukocytes [#/volume] correc jose for nucleated erythrocytes in Blood by Automated counOrdered By: Chiara Penny on 05-19-2023 WBC corrected for nucl RBC Auto (Bld) [#/Vol] 8.4 10*3/uL 3.8-11.6 [facility] Lipid Panelon 05-19-2023 Cholesterol [Mass/Vol] 332 mg/dL High 140-200 [facility] Comment on above: Order Comment: Reaso n for Exam Type 2 diabetes mellitus without complication, without long- FASTING. JKW Result Comment: Chol less than 200 mg/dl low risk Chol 201-239 mg/dl borderline risk Chol 240 mg/dl and greater high risk Performed By: #### L IPID, URMA, CMP, CBCNO #### [facility] [address] [id number] [place] Cholesterol in HDL [Mass/Vol] 41 mg/dL Normal 23-92 [facility] Comment on above: Order Comment: Reaso n for Exam Type 2 diabetes mellitus without complication, without long- FASTING. JKW Result Comment: HDL CHOL ATP-III CLASSIFICATION Cardiovascular Risk HDL > or equal to 60 mg/dL LOW HDL < 40 mg/dL HIGH Performed By: #### L IPID, URMA, CMP, CBCNO #### [facility] [address] Cholesterol.total/Brianna sterol in HDL [Mass ratio] 8.1 {ratio} Normal <5.0 [facility] Comment on above: Order Comment: Reaso n for Exam Type 2 diabetes mellitus without complication, without long- FASTING. JKW Result Comment: PERF ORMED BY: [place] [id number] PATHOLOGIST HARDENING MACHINE OPERATOR HELPER HERMAN STOUT M.D. Performed By: #### L IPID, URMA, CMP, CBCNO #### [address] LDL Cholesterol,Calculated 226 mg/dL High 0-100 [facility] Comment on above: Order Comment: [...] #### L IPID, URMA, CMP, CBCNO #### [facility] [address] Triglyceride w/Reflex 325 mg/dL High 0-149 [facility] Comment on above: Order Comment: Reaso [...] #### L IPID, URMA, CMP, CBCNO #### [facility] [address] VLDL CHOLESTEROL 65 mg/dL Normal [facility] Comment on above: Order Comment: Reaso n for Exam Type 2 diabetes mellitus without complication, without long- FASTING. JKW Performed By: #### L IPID, URMA, CMP, CBCNO #### [facility] [address] MCH Auto (RBC) [Entitic mass ]Ordered By: Chiara Penny on 05-19-2023 MCH (RBC) [Entitic mass] 30.7 pg 24.7-34.3 [facility] MCHC Auto (RBC) [Mass/Vol]Or dered By: Chiara Penny on 05-19-2023 MCHC (RBC) [Mass/Vol] 33.3 g/dL 32.0-35.0 [facility] MCV Auto (RBC) [Entitic vol] Ordered By: Chiara Penny on 05-19-2023 MCV (RBC) [Entitic vol] 92.2 fL 80-[address] [facility] Microalbumin [Mass/volume] i n UrineOrdered By: Chiara Penny on 05-19-2023 Albumin DL <= 20 mg/L (U) [Mass/Vol] mg/dL 0.0-1.8 [facility] Microalbumin, Urine (Random) on 05-19-2023 Albumin DL <= 20 mg/L (U) [Mass/Vol] mg/dL High 0.0-1.8 [facility] Comment on above: Order Comment: Reaso n for Exam Type 2 diabetes mellitus without complication, without long- Result Comment: PERF ORMED BY: [place] [id number] PATHOLOGIST HARDENING MACHINE OPERATOR HELPER HERMAN STOUT M.D. Performed By: #### L IPID, URMA, CMP, CBCNO #### [facility] [address] No Panel InformationOrdered By: Chiara Penny on 05-19-2023 Estimated GFR (CKD-EPI) 51.144 mL/Min [facility] Creatinine Clearance (Chem N/A [facility] Platelet mean volume Auto (B ld) [Entitic vol]Ordered By: Chiara Penny on 05-19-2023 Platelet mean volume (Bld) [Entitic vol] 9.0 fL 6.3-10.7 [facility] Platelets Auto (Bld) [#/Vol] Ordered By: Chiara Penny on 05-19-2023 Platelets (Bld) [#/Vol] 332 10*3/uL 150-450 [facility] Potassium [Moles/volume] in Serum or PlasmaOrdered By: Chiara Penny on 05-19-2023 Potassium [Moles/Vol] 4.4 mmol/L 3.5-5.1 [facility] Protein [Mass/volume] in Ser um or PlasmaOrdered By: Chiara Penny on 05-19-2023 Protein [Mass/Vol] 7.2 g/dL 6.4-8.9 [facility] RBC Auto (Bld) [#/Vol]Ordere d By: Chiara Penny on 05-19-2023 RBC (Bld) [#/Vol] 4.12 10*6/uL 3.60-5.00 [facility] Serum or plasma albumin/glob ulin mass ratioOrdered By: Chiara Penny on 05-19-2023 Albumin/Globulin [Mass ratio] 1.6 {ratio} [facility] Serum or plasma anion gap de terminationOrdered By: Chiara Penny on 05-19-2023 Anion gap [Moles/Vol] 11.3 mmol/L 6.0-15.0 [facility] Serum or plasma high density lipoprotein (HDL) cholesterol measurementOrdered By: Chiara Penny on 05-19-2023 Cholesterol in HDL [Mass/Vol] 41 mg/dL 23-92 [facility] Comment on above: HDL CHOL ATP-III CLA SSIFICATION Cardiovascular RiskHDL > or equal to 60 mg/dL LOWHDL < 40 mg/dL HIGH Serum or plasma total choles terol/high density lipoprotein (HDL) cholesterol mass ratOrdered By: Chiara Penny on 05-19-2023 Cholesterol.total/Rbianna sterol in HDL [Mass ratio] 8.1 {ratio} <5.0 [facility] Sodium [Moles/volume] in Ser um or PlasmaOrdered By: Chiara Penny on 05-19-2023 Sodium [Moles/Vol] 139 mmol/L 136-145 [facility] Triglyceride [Mass/volume] i n Serum or PlasmaOrdered By: Chiara Penny on 05-19-2023 Triglyceride [Mass/Vol] 325 mg/dL 0-[address] [facility] Comment on above: TRIG ATP III CLASSIF ICATIONTRIG less than 150 mg/dL NormalTRIG 150-199 mg/dL Borderline highTRIG 200-500 mg/dL High TRIG greater than 500 mg/dL Very highStandard traceable to the Center for Disease Conrtrol and Prevention (CDC) test method. Urea nitrogen [Mass/volume] in Serum or PlasmaOrdered By: Chiara Penny on 05-19-2023 Urea nitrogen [Mass/Vol] 20 mg/dL 7-25 [facility] Glucose Glucometer (BldC) [M ass/Vol]Ordered By: Vaibhav Nelson on 02-01-2023 Glucose [Mass/Vol] 120 mg/dL [facility] Comment on above: Random Glucose Refer ence Range is dependent on time and content of last meal. Glucose of more than 200 mg/dL in a nonstressed, ambulatory subject supports the diagnosis of Diabetes Mellitus. Glucose Poct Glucometerson 0 02-01-2023 Commemt1 Glu2: Cleaned Meter Normal [facility] Comment on above: Result Comment: PERF ORMED BY: [facility] [address] [place] [address] PATHOLOGIST HARDENING MACHINE OPERATOR HELPER HERMAN STOUT M.D. Performed By: #### G MICHELLE #### Point of Care testing , Glucose [Mass/Vol] 120 mg/dL Normal [facility] Comment on above: Result Comment: [place] om Glucose Reference Range is dependent on time and content of last meal. Glucose of more than 200 mg/dL in a nonstressed, ambulatory subject supports the diagnosis of Diabetes Mellitus. Performed By: #### G PRITESHLS #### Point of Care testing , [place] 02-01-2023 L -- ---- Specimen: [id number] Received: 02/01/23 Status: BARBARA Garciaedwin Num: [id number] Spec Type: Surgical Subm Dr: Vaibhav Nelson MD Tissues: A Colon Biopsy (DESCENDING POLYPS) B Colon Biopsy (SIGMOID POLYP) Procedures: HE/Caty, Abhilash/Micro L4/2 ---- Age/ Patient Sex Location Account Attending Physician ---- Nelia Alvarado 67/F [id number] Vaibhav Nelson MD ---- SPEC NUM: [id number] RECD: 02/01/23 STATUS: BARBARA SIMÓN NUM: [id number] SARAH: 02/01/23- [facility] DR: Vaibhav Nelson MD ENTERED: 02/01/23-[address]: SPEC TYPE: Surgical DEPT: S ORDERED: HE/4, Gross/Micro L4/2 ORDERED: HE/4, Gross/Micro L4/2 Pathological Diagnosis A. Colon, descending, [...] in one cassette labeled B1. ---- Specimen: [id number] Received: 02/01/23 Status: BARBARA Lara Num: [id number] Spec Type: Surgical Subm Dr: Vaibhav Nelson MD Tissues: A Colon Biopsy (DESCENDING POLYPS) B Colon Biopsy (SIGMOID POLYP) Procedures: HE4, Gross/Micro L4/2 ---- Patient: SalomónjonhNelia M [id number] (Continued) ---- Specimen: [id number] Received: 02/01/23 (Continued) Signed (signature on file) Suri Aguirre MD 02/02/23 0950 ---- Specimen: Received: 02/01/23 Status: BARBARA Simón Num: [id number] Spec Type: Surgical Subm Dr: Vaibhav Nelson MD Tissues: A Colon Biopsy (DESCENDING POLYPS) B Colon Biopsy (SIGMOID POLYP) Procedures: HALINA/Caty, Gross/Micro L4/2 ---- Patient: Nelia Alvarado [id number] (Continued) ---- Specimen: Received: 02/01/23 (Continued) Microscopic Description A. Two H E slides reviewed. The microscopic examination confirms the diagnosis. B. Two H E slides reviewed. The microscopic examination confirms the diagnosis. CPT Codes 50358x3 ---- ---- Specimen: [id number] Received: 02/01/23 Status: BARBARA Lara Num: [id number] Spec Type: Surgical Subm Dr: Vaibhav Nelson MD Tissues: A Colon Biopsy (DESCENDING POLYPS) B Colon Biopsy (SIGMOID POLYP) Procedures: HALINA/Caty, Gross/Micro L4/2 ---- Patient: Nelia Alvarado [id number] (Continued) ---- Signed (signature on file) Suri Aguirre MD 02/02/23 0950 Normal [facility] No Panel InformationOrdered By: Vaibhav Nelson on 02-01-2023 Bedside Glucose Comment Glu2: cleaned meter [facility] A1C HEMOGLOBINon 11-12-2022 HbA1c (Bld) [Mass fraction] 6.7 % [employer] [facility] [employer] Other HbA1c (Bld) [Mass fraction]o n 11-12-2022 A1C HEMOGLOBIN [facility] [employer] Other Microalb.,Random Uron 2019 Microalb/Creat Ratio 1005 mcg/mg creat High <25 [facility] Comment on above: Performed By: #### U RNMAB #### [address] [address] Airworthiness Safety Inspector: Jamie Brantley MD Microalbumin conc. 1230 mg/L High <21 [facility] Comment on above: Performed By: #### U RNMAB #### [facility] [address] [place] [address] Airworthiness Safety Inspector: Jamie Brantley MD Creatinine [Mass/Vol] 122.4 mg/dL Normal 28.0-217.0 [facility] Comment on above: Performed By: #### U RNMAB #### [address] [address] Airworthiness Safety Inspector: Jamie Brantley MD Microalbumin, Uron 0 Albumin/Creatinine DL <= 20 mg/L (24H U) [Mass ratio] 1230 mg/L High <21 [place], [place] Albumin/Creatinine DL <= 20 mg/L (U) [Ratio] 1005 High <25 mcg/mg creat [place], [place] Creatinine [Mass/Vol] 122.4 mg/dL 28 - 2 17 mg/dL [place], [place] Interpretation and review of laboratory results Abnormal [place] Vital Signs Date Time Vital Sign Value Performing Clinician Facility 10-21-2023 10:50-0500 Diastolic blood pressure 82 mm[Hg] Murray Paris MD Work Phone: [facility] 10-21-2023 10:50-0500 Heart rate 77 /min Murray Paris MD Work Phone: [facility] 10-21-2023 10:50-0500 Systolic blood pressure 151 mm[Hg] Murray Paris MD Work Phone: [facility] 10-21-2023 10:49-0500 Body height 165.1 cm Murray Paris MD Work Phone: [facility] 10-21-2023 10:49-0500 Body mass index (BMI) [Ratio] 30.52 kg/m2 Murray Paris MD Work Phone: [facility] 10-21-2023 10:49-0500 Body weight 83.19 kg Murray Paris MD Work Phone: [facility] 10-13-2023 14:03-0500 Body height 157.5 cm Mischell Martin COSTUME DIRECTOR-FILBERT GROWER Work Phone: [facility] 10-13-2023 14:03-0500 Body mass index (BMI) [Ratio] 33.47 kg/m2 Mischell Martin COSTUME DIRECTOR-FILBERT GROWER Work Phone: [facility] 10-13-2023 14:03-0500 Body weight 83.01 kg Mischell Martin COSTUME DIRECTOR-FILBERT GROWER Work Phone: [facility] 10-13-2023 14:03-0500 Diastolic blood pressure 66 mm[Hg] Mischell Martin COSTUME DIRECTOR-FILBERT GROWER Work Phone: [facility] 10-13-2023 14:03-0500 Heart rate 63 /min Mischell Martin COSTUME DIRECTOR-FILBERT GROWER Work Phone: [facility] 10-13-2023 14:03-0500 SaO2% (BldA) [Mass fraction] 95 % Mischell Martin COSTUME DIRECTOR-FILBERT GROWER Work Phone: [employer] 10-13-2023 14:03-0500 Systolic blood pressure 130 mm[Hg] Rico Naik COSTUME DIRECTOR-FILBERT GROWER Work Phone: [employer] 06-02-2023 13:15-0400 Body height 157.48 cm Chiara Penny Other [employer] Other 06-02-2023 13:15-0400 Body mass index (BMI) [Ratio] 32.74 kg/m2 Chiarafreedom Penny Other [employer] Other 06-02-2023 13:15-0400 Body weight 81.19 kg Chiara Penny Other [employer] Other 06-02-2023 13:15-0400 Diastolic blood pressure 84 mm[Hg] Chiara Penny Other [employer] Other 06-02-2023 13:15-0400 Respiratory rate 18 /min Chiara Penny Other [employer] Other 06-02-2023 13:15-0400 SaO2% (BldA) [Mass fraction] 97 % Chiarafreedom Penny Other [employer] Other 06-02-2023 13:15-0400 Systolic blood pressure 152 mm[Hg] Chiara Zohaib Other [employer] Other 05-19-2023 11:45-0400 Body height 157.48 cm Chiara Penny Other [employer] Other 05-19-2023 11:45-0400 Body mass index (BMI) [Ratio] 32.97 kg/m2 Chiaratayo Penny Other [employer] Other 05-19-2023 11:45-0400 Body weight 81.78 kg Chiaratayo Penny Other [employer] Other 05-19-2023 11:45-0400 Diastolic blood pressure 82 mm[Hg] Chiara Penny Other [employer] Other 05-19-2023 11:45-0400 Respiratory rate 18 /min Chiara Penny Other [employer] Other 05-19-2023 11:45-0400 SaO2% (BldA) [Mass fraction] 97 % Chiara Penny Other [employer] Other 05-19-2023 11:45-0400 Systolic blood pressure 138 mm[Hg] Chiara Penny Other [employer] Other 02-01-2023 10:22-0400 Diastolic blood pressure 61 mm[Hg] DO Chiara Penny Work Phone: [facility] 02-01-2023 10:22-0400 Heart rate 57 /min DO Chiara Penny Work Phone: [facility] 02-01-2023 10:22-0400 Respiratory rate 16 /min DO Chiara Penny Work Phone: [facility] 02-01-2023 10:22-0400 SaO2% (BldA) [Mass fraction] 97 % DO Chiara Penny Work Phone: [facility] 02-01-2023 10:22-0400 Systolic blood pressure 122 mm[Hg] DO Chiara Zohaib Work Phone: [facility] 02-01-2023 08:52-0400 Body height 157.48 cm DO Chiara Zohaib Work Phone: [facility] 02-01-2023 08:52-0400 Body temperature 98 [degF] DO Chiaratayo Penny Work Phone: [facility] 02-01-2023 08:52-0400 Body weight 78.92 kg DO Chiaratayo Penny Work Phone: [facility] 11-12-2022 12:00-0400 Body height 157.48 cm Chiaratayo Penny Other [employer] Other 11-12-2022 12:00-0400 Body mass index (BMI) [Ratio] 33.14 kg/m2 Chiara Penny Other [employer] Other 11-12-2022 12:00-0400 Body weight 82.19 kg Chiaratayo Penny Other [employer] Other 11-12-2022 12:00-0400 Diastolic blood pressure 82 mm[Hg] Chiara Penny Other [employer] Other 11-12-2022 12:00-0400 Respiratory rate 18 /min Chiara Penny Other [employer] Other 11-12-2022 12:00-0400 SaO2% (BldA) [Mass fraction] 99 % Chiara Penny Other [employer] Other 11-12-2022 12:00-0400 Systolic blood pressure 154 mm[Hg] Chiara Penny Other [employer] Other Encounters Encounter Date Encounter Type Care Provider Facility Start: 10-21-2023 End: 10-21-2023 Orders Only Courtney Ewing LPN [facility] Comment on above: Carotid stenosis, as ymptomatic, bilateral (Primary Dx); Bilateral carotid artery stenosis; Varicose veins of bilateral lower extremities with pain Start: 10-21-2023 End: 10-21-2023 Office outpatient visit 25 minutes Murray Paris MD Work Phone: [facility] Comment on above: Carotid stenosis, as ymptomatic, bilateral (Primary Dx); Stenosis of right carotid artery; Varicose veins of bilateral lower extremities with pain Start: 10-13-2023 End: 10-13-2023 ambulatory [facility] Start: 10-13-2023 End: 10-13-2023 Office outpatient visit 15 minutes [facility] COSTUME DIRECTOR-FILBERT GROWER Work Phone: [facility] Comment on above: Essential hypertensi on (Primary Dx); Mixed hyperlipidemia; Stenosis of right carotid artery Start: 09-27-2023 Telephone [facility] Comment on above: Results (09/23/23 CA S) Start: 09-24-2023 Orders Only Lisa Wilson MD [facility] [employer] In Start: 09-23-2023 Telephone encounter Lisa worthy MD Work Phone: [facility] Comment on above: s/p CATH Start: 09-23-2023 End: 09-23-2023 ambulatory [facility] Start: 09-23-2023 End: 09-23-2023 ambulatory [facility] Start: 09-16-2023 Telephone encounter Antoni Ventura [facility] Comment on above: Cardiac Cath Start: 09-15-2023 End: 09-16-2023 ambulatory [facility] Start: 09-14-2023 End: 09-15-2023 ambulatory [facility] Start: 08-17-2023 End: 08-17-2023 ambulatory [facility] Start: 08-12-2023 End: 08-12-2023 ambulatory Chiaratayo Penny Other [employer] Other Start: 08-12-2023 Telephone encounter Chiara Penny [facility] Start: 07-08-2023 End: 07-08-2023 ambulatory Chiara Penny Other [employer] Other Start: 07-08-2023 Telephone encounter Chiara Penny [facility] Start: 07-07-2023 End: 07-07-2023 ambulatory Chiara Penny Facility:[facility] Start: 07-07-2023 End: 07-07-2023 ambulatory DO Chiara Tayo Penny Work Phone: [facility] Work Phone: Start: 07-07-2023 End: 07-07-2023 Patient encounter procedure DO Chiaratayo Penny Work Phone: [facility] [place] Work Phone: Start: 06-02-2023 End: 06-02-2023 ambulatory Chiara Penny Other [employer] Other Start: 06-02-2023 Office outpatient vi sit 15 minutes Chiara Penny [facility] Start: 05-20-2023 End: 05-20-2023 ambulatory Chiara Penny Other [employer] Other Start: 05-20-2023 Telephone encounter Chiara Penny [facility] Start: 05-19-2023 End: 05-19-2023 Patient encounter procedure Chiara Penny [facility] Start: 05-19-2023 Telephone encounter Chiara Penny [facility] Start: 05-19-2023 End: 05-19-2023 ambulatory DO Chiara Penny Work Phone: [employer] Other Start: 05-13-2023 End: 05-13-2023 ambulatory Chiara Penny Other [employer] Other Start: 05-13-2023 Telephone encounter Chiara Penny [facility] Start: 03-10-2023 End: 03-10-2023 ambulatory Imad Asaad Other [employer] Other Start: 03-10-2023 Telephone encounter Imad Asaad [facility] [employer] Start: 02-01-2023 End: 02-01-2023 ambulatory Imad Asaad Facility:[facility] Start: 02-01-2023 End: 02-01-2023 Admission to same day surgery center DO Chiara Penny Work Phone: [facility] Work Phone: Start: 02-01-2023 End: 02-01-2023 ambulatory DO Chiara Penny Work Phone: [facility] Work Phone: Start: 11-23-2022 End: 11-23-2022 ambulatory Imad Asaad Other [employer] Other Start: 11-23-2022 Telephone encounter Imad Asaad [facility] [employer] Start: 11-12-2022 End: 11-12-2022 ambulatory Chiara Penny Other [employer] Other Start: 11-12-2022 Office outpatient ne w 45 minutes Chiaratayo Penny [facility] Start: 07-29-2020 End: 07-30-2020 Patient encounter procedure EDGARD MANUEL [facility] Start: 07-29-2020 End: 07-29-2020 Subsequent hospital visit by physician Mil [facility] [place] [facility] Comment on above: Controlled type 2 di abetes mellitus with complication, without long-term current use of insulin (HCC) Procedures Date Procedure Procedure Detail Performing Clinician Start: 10-21-2023 AMB REFERRAL TO [facility] Rico Naik COSTUME DIRECTOR-FILBERT GROWER Work Phone: Start: 10-13-2023 Follow-up visit Follow-up YOVANI NAIK Start: 07-07-[address] DO Chiara Penny Work Phone: Start: 02-01-2023 Colonoscopy DO Chiara Penny Work Phone: Start: 07-29-2020 Urine albumin quantitative EDGARD MANUEL Start: 07-29-2020 Urine albumin quantitative Edgard Manuel Work Phone: Plan of Treatment Date Care Activity Detail Author Start: 09-22-2027 Screening for malign ant neoplasm of colon Colon cancer screen colonoscopy [place], [place] Start: 10-21-2024 Adult BMI Screening Adult BMI Screen ing [facility] Start: 10-13-2024 Adult BMI Screening Adult BMI Screen ing [facility] Start: 10-13-2024 Tobacco Screening Tobacco Screening [facility] Start: 09-23-2024 Adult BMI Screening Adult BMI Screen ing [facility] Start: 09-15-2024 Adult BMI Screening Adult BMI Screen ing [facility] Start: 08-17-2024 Tobacco Screening Tobacco Screening [facility] Start: 12-09-2023 End: 12-09-2023 Patient encounter procedure 12/09/2023 10:00 AM EDT Office Visit [facility] [address] [place] [address] Murray Paris MD [address], [address] [address] [facility] Start: 10-21-2023 End: 10-21-2024 US Carotid arteries - bilateral Vas carotid duplex bilateral Vascular Ultrasound Routine Bilateral carotid artery stenosis Expected: 10/21/2023, Expires: 10/21/2024 [email or web address]: Comment on above: Expected: 10/21/2023 , Expires: 10/21/2024 Start: 10-21-2023 End: 10-21-2024 US.doppler Lower extremity vein - bilateral Vas venous duplex lwr bilateral Vascular Ultrasound Routine Varicose veins of bilateral lower extremities with pain Expected: 10/21/2023, Expires: 10/21/2024 [facility] Comment on above: Expected: 10/21/2023 , Expires: 10/21/2024 Start: 10-20-2023 End: 10-20-2023 Patient encounter procedure 10/20/2023 1:30 PM EST Office Visit [facility] [address] [place] [address] Rico Naik, COSTUME DIRECTOR-FILBERT GROWER [address] [place] [address] [facility] Start: 10-13-2023 End: 10-13-2023 Patient encounter procedure 10/13/2023 2:00 PM EST Office Visit [facility] [address] [place] [address] Rico Naik, COSTUME DIRECTOR-FILBERT GROWER [address] [place] [address] [facility] Start: 09-23-2023 End: 09-23-2023 Admission to same day surgery center 09/23/2023 1:30 PM EST - 09/23/2023 2:30 PM EST Surgery [facility] - Cardiac Cath [address] [place] [address] Lisa Wilson MD [address] [place] [address] Cardiac catheterization [facility] [id number] [facility] Cardiac Cath Comment on above: Cardiac catheterizat ion [place] [id number] Start: 09-23-2023 Subsequent hospital visit by physician 09/23/2023 1:30 PM EST Hospital Encounter [facility] Cardiac Cath [address] [place] [id number] Lisa Wilson MD [address] [place] [address] angiography [facility] Cardiac Cath Comment on above: Abnormal cardiac CT angiography Start: 09-23-2023 End: 09-23-2023 Patient encounter procedure 09/23/2023 8:30 AM EST Appointment [facility] [place] [facility] [address] [facility] [address] [place] [phone] Lisa Wilson MD [address] [place] [address] [facility] Start: 06-02-2023 DTaP,Tdap and Td Vac cines (3 - Td or Tdap) DTaP,Tdap and Td Vaccines (3 - Td or Tdap) [facility] Start: 06-02-2023 DTaP/Tdap/Td vaccine (2 - Td) DTaP/Tdap/Td vaccine (2 - Td) [place] Start: 04-30-2023 Influenza vaccination Influenza Vacc ine [facility] Start: 02-01-2023 [facility] Start: 07-29-2021 Diabetic foot examination Diabetic f oot exam [place], [place] Start: 07-29-2021 HbA1c (Bld) [Mass fraction] A1C test (Diabetic or Prediabetic) [place], [place] Start: 2021 Fall Risk Screening Fall Risk Screen ing [facility] Start: 11-22-2020 End: 11-22-2020 Office Visit 11/22/2020 Office Visit Family Medicine Edgard Manuel, COSTUME DIRECTOR - FILBERT GROWER [address] [place] [address] [phone] [facility] Start: 04-30-2020 Influenza vaccination Flu vaccine (# 1) [place], [place] Start: 10-25-2019 Creatinine measurement Creatinine mo [place]itoring [place] Start: 10-25-2019 Potassium monitoring Potassium monit [place]ing [place] Start: 09-15-2019 Lipid panel Lipid screen [place] Start: 10-31-2016 Screening for malign ant neoplasm of cervix Cervical cancer screen [place] Start: 2006 Administration of varicella zoster vaccine Zoster (Shingles) Vaccine (1 of 2) [facility] Start: 2006 Screening for malign ant neoplasm of breast Breast cancer screen [place] Start: 2006 Shingles Vaccine (1 of 2) Price gles Vaccine (1 of 2) [place] Start: 1974 Adult BMI Follow Up Plan Adult BMI F ollow Up Plan [facility] Start: 1974 Diabetic foot examination Diabetic F oot Exam [facility] Start: 1968 Depression Screening Depression Scre ening [facility] Start: 1966 Diabetic retinal exam Diabetic retin al exam [place], [place] Start: 1956 Glaucoma screening Diabetic Op hthalmology Exam [facility] Start: 1956 Medicare Annual Well ness Visit Medicare Annual Wellness Visit [facility] Start: 1956 Tobacco Counseling Tobacco Counselin g [facility] Patient Education Hemorrhoids Co frederick polyps Diverticulosis (DC) [facility] Work Phone: Immunizations Immunization Date Immunization Notes Care Provider Denice palm 05-07-2017 pneumococcal polysaccharide vaccine, 23 valent Mil Leiva [place] 06-02-2013 tetanus toxoid, reduced diphtheria toxoid, and acellular pertussis vaccine, adsorbed Mil Leiva [place] 06-26-2010 influenza virus vaccine, unspecified formulation Mil Leiva [facility], [place] 06-26-2010 influenza virus vaccine, whole virus Chiara Penny Other [employer] Other 11-05-1999 Td, unspecified [facility] [place] [facility] tetanus and diphtheria toxoids, adsorbed, preservative free, for adult use (5 Lf of tetanus toxoid and 2 Lf of diphtheria toxoid) Chiara Penny Other [employer] Other NEGATED: Highlighted row has not occurred! 3 Flu Shot - Documentation Purposes Only Patient Objection Chiara Penny Other [employer] Other NEGATED: Highlighted row has not occurred! 3 influenza, seasonal, injectable Patient Objection Chiara Penny Other [employer] Other NEGATED: Highlighted row has not occurred! 3 Prevnar 20 Patient Objection Chiara Penny Other [employer] Other Payers Date Payer Category Payer Self-pay 2022 Unknown [id number] 2021 Medicare [id number] 2021 Medicare MEDICARE MEDICAR E PART A & B [id number] 2021-Present [phone] [address] [place] [address] [id number] 2021 Unknown [id number] 2021 Unknown [facility] SU[facility] [id number] 2021-Present [phone] [address] [place] [address] [id number] 2018 Unknown [id number] 1956 Unknown [id number] 1956 Unknown [id number] 1956 Unknown [id number] [id number] 1956 Unknown [id number] [id number] 1956 Unknown [id number] [id number] 1956 Unknown [id number] [id number] 1956 Unknown [id number] [id number] 1956 Unknown [id number] [id number] 1956 Unknown [id number] Unknown [id number] [id number] Unknown [id number] Unknown [id number] Social History Date Type Detail Facility Start: 07-29-2020 End: 10-13-2023 Tobacco smoking status NHIS Former smoker [facility] Start: 02-01-2023 End: 02-01-2023 History of tobacco use Current smoker [place] Start: 07-29-2020 End: 10-10-2020 Cigarettes smoked current (pack per day) - Reported [place] Start: 07-29-2020 End: 10-13-2023 Tobacco use and exposure Never used [place] Start: 07-29-2020 End: 10-13-2023 Alcohol intake Current drinker of alcohol (finding) [place] Start: 07-29-2020 History SDOH Financial 5 [place] Start: 07-29-2020 History SDOH Food Worry 1 [place] Start: 10-23-2011 Alcohol Comment occassional [place] Start: 1955 Sex Assigned At Not on file [place] Exposure to SARS-CoV -2 (event) Not sure [place] Start: 10-10-2020 End: 08-17-2023 Sex Assigned At [employer] Other Start: 1955 Sex Assigned At Female [facility] Start: 08-17-2023 Tobacco smoking status FLIS Smokes tobacco daily [facility] Housing Instability Unknown [facility] Start: 09-22-2017 Alcohol Comment socially [facility] History of tobacco use Cigarette Smoker [facility] Medical Equipment Procedure Code Equipment Code Equipment Origin al Text Equipment Identifier Dates T2DM, use up to three times daily as needed [id number] Start: 07-11-2019 T2DM, use up to three times daily as needed [id number] Start: 07-11-2019 Goals Date Patient Goal Desired Activity /State Clinical Notes 11-12-2022 to 10-21-2023 Murray Paris MD - 10/21/2023 9:20 AM Musa Naik APRN-SHANE - 10/13/2023 2:00 PM ESTTelephone Encounter - Leslye Leon RN - 09/27/2023 12:05 PM EST Note Date & Type Note Facility 10-21-2023 History of Present illness Narrative Images from the original note were not included. [facility] [address] [facility] [address] Subjective: Patient ID: Nelia Alvarado is a 68 y.o. female. Chief Complaint Chief Complaint Patient presents with Carotid Artery Disease Stenosis of right carotid artery. Recent testing. History of Present Illness: A pleasant 68-year-old lady comes in with a carotid ultrasound testing.Her carotid ultrasound shows mild stenosis bilaterally. She is on best medical therapy.She has bilateral lower extremity varicose veins with pain.She has been using her compression stockings intermittently.She would like her legs evaluated.I discussed with her that she does not need workup for peripheral arterial disease she is she does not have claudication.However I recommended continue compression stockings and getting venous reflux ultrasound.We will get the carotid ultrasound in 1 year.I will see her after the venous reflux ultrasound. Patient Active Problem List Diagnosis Abnormal electrocardiography Atopic rhinitis Chronic kidney disease Type 2 diabetes mellitus ([facility]) Narrowing of intervertebral disc space Osteoarthritis Essential hypertension Gastroesophageal reflux disease Loss of hair Mixed hyperlipidemia Lateral epicondylitis Microalbuminuria Thumb pain Pain in wrist Bilateral carotid bruits Abnormal CT scan of heart Abnormal cardiac CT angiography Carotid stenosis, asymptomatic, bilateral Varicose veins of bilateral lower extremities with pain Current Outpatient Medications: aspirin 81 mg, Take 1 tablet (81 mg total) by mouth in the morning., Disp: , Rfl: cetirizine (ZyrTEC) 10 MG chewable tablet, Chew 1 tablet (10 mg total) and swallow in the morning., Disp: , Rfl: losartan-hydrochlorothiazide (HYZAAR) 50-12.5 mg per tablet, Take 1 tablet by mouth once daily., Disp: , Rfl: 0 metFORMIN (FORTAMET) 500 MG (OSM) 24 hr tablet, Take 1 tablet (500 mg total) by mouth daily with breakfast., Disp: , Rfl: metoprolol succinate XL (TOPROL-XL) 50 mg 24 hr tablet, Take 1 tablet (50 mg total) by mouth once daily., Disp: , Rfl: 0 MULTIVITAMIN ORAL, Take 1 tablet by mouth daily., Disp: , Rfl: omega 7-ztr-gro-fish oil 1,000 mg (120 mg-180 mg) capsule, Take 1 capsule by mouth in the morning., Disp: , Rfl: rosuvastatin (CRESTOR) 20 mg tablet, Take 1 tablet (20 mg total) by mouth once daily., Disp: 90 tablet, Rfl: 3 traMADol (ULTRAM) 50 mg tablet, Take 1 tablet (50 mg total) by mouth every 6 (six) hours as needed for pain., Disp: , Rfl: UBIDECARENONE (COENZYME Q10) 100 mg tablet, Take 1 capsule by mouth daily., Disp: , Rfl: The following portions of the patient's history were reviewed and updated as appropriate: allergies, current medications, past family history, past medical history, past social history, past surgical history and problem list. Review of Systems: Review of Systems All other systems reviewed and are negative. Objective: Vitals BP 151/82 (BP Site: Right Arm, BP Postition: Sitting, BP CUFF SIZE: M (9-13 inches)) Pulse 77 Ht 165.1 cm (5' 5 ) Wt 83.2 kg (183 lb 6.4 oz) BMI 30.52 kg/m Physical Exam Physical Exam Constitutional: Appearance: Normal appearance. HENT: Head: Normocephalic and atraumatic. Mouth/Throat: Mouth: Mucous membranes are dry. Eyes: Pupils: Pupils are equal, round, and reactive to light. Cardiovascular: Rate and Rhythm: Normal rate and regular rhythm. Pulmonary: Effort: Pulmonary effort is normal. Breath sounds: Normal breath sounds. Musculoskeletal: General: Normal range of motion. Cervical back: Normal range of motion and neck supple. Skin: General: Skin is warm and dry. Comments: Bilateral lower extremity varicose veins especially behind the knee. Neurological: General: No focal deficit present. Mental Status: She is alert and oriented to person, place, and time. Psychiatric: Mood and Affect: Mood normal. Behavior: Behavior normal. Thought Content: Thought content normal. Judgment: Judgment normal. Studies Reviewed Carotid ultrasound Assesment: Nelia was seen today for carotid artery disease. Diagnoses and all orders for this visit: Carotid stenosis, asymptomatic, bilateral Stenosis of right carotid artery - [facility] [place], [place] Varicose veins of bilateral lower extremities with pain Plan Plan: A pleasant 68-year-old lady comes in with a carotid ultrasound testing.Her carotid ultrasound shows mild stenosis bilaterallyShe is on best medical therapy.She has bilateral lower extremity varicose veins with pain.She has been using her compression stockings intermittently.She would like her legs evaluated.I discussed with her that she does not need workup for peripheral arterial disease she is she does not have claudication.However I recommended continue compression stockings and getting venous reflux ultrasound.We will get the carotid ultrasound in 1 year.I will see her after the venous reflux ultrasound. Murray Paris MD documented in this encounter [facility] 10-13-2023 History of Present illness Narrative Nelia Green Salomónjonh Date of visit: 10/13/2023 Date of : 1955 Age: 68 y.o. Patient Active Problem List Diagnosis Abnormal electrocardiography Atopic rhinitis Chronic kidney disease Type 2 diabetes mellitus (CMS-HCC) Narrowing of intervertebral disc space Osteoarthritis Essential hypertension Gastroesophageal reflux disease Loss of hair Mixed hyperlipidemia Lateral epicondylitis Microalbuminuria Thumb pain Pain in wrist Bilateral carotid bruits Abnormal CT scan of heart Abnormal cardiac CT angiography No Known Allergies Current Outpatient Medications Medication Sig Dispense Refill aspirin 81 mg Take 1 tablet (81 mg total) by mouth in the morning. cetirizine (ZyrTEC) 10 MG chewable tablet Chew 1 tablet (10 mg total) and swallow in the morning. losartan-hydrochlorothiazide (HYZAAR) 50-12.5 mg per tablet Take 1 tablet by mouth once daily. 0 metFORMIN (FORTAMET) 500 MG (OSM) 24 hr tablet Take 1 tablet (500 mg total) by mouth daily with breakfast. metoprolol succinate XL (TOPROL-XL) 50 mg 24 hr tablet Take 1 tablet (50 mg total) by mouth once daily. 0 MULTIVITAMIN ORAL Take 1 tablet by mouth daily. omega 7-tml-byy-fish oil 1,000 mg (120 mg-180 mg) capsule Take 1 capsule by mouth in the morning. rosuvastatin (CRESTOR) 20 mg tablet Take 1 tablet (20 mg total) by mouth once daily. 90 tablet 3 traMADol (ULTRAM) 50 mg tablet Take 1 tablet (50 mg total) by mouth every 6 (six) hours as needed for pain. UBIDECARENONE (COENZYME Q10) 100 mg tablet Take 1 capsule by mouth daily. No current facility-administered medications for this visit. Chief Complaint Patient presents with Follow-up sp cath 09/23 - sched w pt, on wait list for sooner appt History of Present Illness Nelia Alvarado is a 68 y.o. female with a past medical history of CKD, type 2 diabetes, hyperlipidemia, hypertension, elevated calcium score, prior tobacco abuse, currently vapes. Patient was referred to [facility] secondary to elevated calcium score. She previously was taking cholesterol medication but was concerned about developing dementia and therefore stopped the medication. Her repeat cholesterol levels were elevated in her primary care ordered a CT of the heart with calcium score. Total calcium score significantly elevated at 2387. Patient is not particularly active secondary to some hip pain. For further evaluation it was recommended she undergo further testing. Echocardiogram completed 09/15/2023 of 55-60%, no wall motion abnormalities, grade 1 diastolic dysfunction. No significant valvular disease. She also had a CTA of the coronaries on 09/16/2023 that showed severe coronary artery disease with 60% ostial stenosis in the RCA with an FFR COMMUNITY PRODUCT SPECIALIST of 0.80. Total calcium Score 2039.9. Underwent cardiac catheterization on 09/23/2023 that showed severe diffuse calcifications in the entire coronary tree with moderate to severe disease involving the ostium of the RCA in the proximal RCA. PCI was not warranted based on asymptomatic status. It was recommended she undergo aggressive medical therapy. Today in office she is feeling well. Continues to deny chest pain, shortness of breath, palpitations, lightheadedness, dizziness, or syncope. Right wrist catheterization site clean, dry, intact without signs or symptoms of hematoma or infection. Reviewed all medications. She had a recent carotid Doppler done that showed no plaque in the left side however right side was 50-69% stenosed. I did tell her that she should get established with vascular, referral placed, just for regular follow-ups, should this need any further intervention at some point. Past Medical History: Diagnosis Date Abnormal EKG Allergic rhinitis Back pain Chronic kidney disease Degenerative joint disease Diabetes mellitus (CMS-HCC) GERD (gastroesophageal reflux disease) Hair loss Hx of degenerative disc disease Hyperlipidemia Hypertension Lateral epicondylitis (tennis elbow) Microalbuminuria Wrist pain, right No data recorded No data recorded No data recorded Past Surgical History: Procedure Laterality Date ANKLE SURGERY x2 APPENDECTOMY BACK SURGERY Cardiac catheterization CORS LV GRAM PRESS [id number] N/A 09/23/2023 Performed by Lisa Wilson MD at [facility] CARDIAC CATH LABS SECTION x2 COLONOSCOPY AND POLYPECTOMY N/A 09/22/2017 Performed by Edy Luis MD at [facility] ENDOSCOPY TONSILLECTOMY ADENOIDECTOMY Family History Problem Relation Age of Onset Heart attack Mother Heart disease Mother Diabetes Father Heart disease Father Social History Socioeconomic History Marital status: Spouse name: Not on file Number of children: Not on file Years of education: Not on file Highest education level: Not on file Occupational History Not on file Tobacco Use Smoking status: Former Types: Cigarettes Smokeless tobacco: Never Vaping Use Vaping Use: Every day Substance and Sexual Activity Alcohol use: Yes Alcohol/week: 0.0 standard drinks of alcohol Comment: socially Drug use: No Sexual activity: Defer Other Topics Concern Caffeine Use Yes Social History Narrative Not on file Social Determinants of Health Financial Resource Strain: Not on file Food Insecurity: Not on file Transportation Needs: Not on file Physical Activity: Not on file Stress: Not on file Social Connections: Not on file Interpersonal Safety: Not on file Housing Instability: Not on file Review of Systems Review of Systems Constitutional: Negative for malaise/fatigue. HENT: Negative for nosebleeds. Eyes: Negative for blurred vision and double vision. Respiratory: Negative for cough, shortness of breath and wheezing. Hematologic/Lymphatic: Does not bruise/bleed easily. Musculoskeletal: Negative for joint pain, joint swelling, muscle cramps and muscle weakness. Gastrointestinal: Negative for bloating, abdominal pain, constipation, diarrhea, heartburn, hematochezia, nausea and vomiting. Genitourinary: Negative for hematuria. Neurological: Positive for dizziness. Negative for headaches and light-headedness. CARDIOVASCULAR: Please review HPI. Physical Examination General appearance: Alert, oriented and cooperative. In no acute distress. Respiratory: Clear to auscultation bilaterally, no use of accessory muscles. Cardiovascular: RRR with normal S1 and S2 with no murmurs. Musculoskeletal: No peripheral edema. Neurologic: Oriented to time, person and place, affect appropriate. No focal/major motor defects noted. Psychiatric: Appropriate mood, memory and judgement. VITAL SIGNS: BP 130/66 Pulse 63 Ht 157.5 cm (5' 2 ) Wt 83 kg (183 lb) SpO2 95% BMI 33.47 kg/m No orders of the defined types were placed in this encounter. There are no discontinued medications. IMPRESSIONS/PLAN 1. Essential hypertension 2. Mixed hyperlipidemia 3. Stenosis of right carotid artery - [facility] - [place], [place]; Future 1. ASCVD without angina - abnormal CTA with a total calcium score of 2387 - cardiac catheterization 09/23/2023 - severe diffuse calcification throughout the entire coronary tree with moderate to severe disease involving the ostium of the RCA in the proximal RCA, PCI not warranted based on asymptomatic status - continue medical therapy - on aspirin, statin, beta-livan 2. Preserved left ventricular function, EF 55-60% per echocardiogram 09/15/2023 3. Essential hypertension - controlled on current regimen 4. Hyperlipidemia - LDL 91 per labs 05/13/2022 - on statin therapy - due for repeat lipid profile - potential to increase Crestor dosing 5. CKD 6. Type 2 DM 7. Prior tobacco abuse 8. Family history of coronary disease - father had CABG 9. Carotid artery stenosis - right side 50-69% - referral to vascular for long-term management TODAYS ORDERS Orders Placed This Encounter Procedures [facility] - [place], [place] Plan: Stable and doing well. Continue current plan of care. The patient demonstrated understanding and agreement to this plan as discussed. All questions answered to the patient's satisfaction. The patient will return in 6 months. Thank you for allowing me to participate in the care of this patient. Patient was seen when Dr Dayron Goodson was present and immediately available in office suite. FOLLOW UP Return in about 6 months (around 04/12/2024). PCP: CHIARA PENNY MD Referring Physician: Chiara Penny MD [address] [place] [address] BETINA Zhong 10/13/23 1528 documented in this encounter [facility] 09-27-2023 Miscellaneous Notes Images from the original note were not included. BETINA Zhong 09/27/2023 11:53 AM EST Back to Top Noted. Nothing urgent. Can be discussed at follow up appointment. Leslye Leon RN 09/27/2023 11:12 AM EST MES Carotid was done same day prior to cath. Has 10/20/23 post cath appt Result will be called to pt. Please mil viewed. Thanks. Msg left on pt VM. documented in this encounter [facility] 09-27-2023 Telephone encounter Note Images from the original note were not included. Rioc Martin, COSTUME DIRECTOR-SHANE 09/27/2023 11:53 AM EST Back to Top Noted. Nothing urgent. Can be discussed at follow up appointment. Leslye Leon RN 09/27/2023 11:12 AM EST MES Carotid was done same day prior to cath. Has 10/20/23 post cath appt Result will be called to pt. Please mil viewed. Thanks. [facility] 09-27-2023 Telephone encounter Note Msg left on pt VM. [facility] 09-23-2023 Miscellaneous Notes ----- Message from Lisa Wilson MD sent at 09/23/2023 4:51 PM EST ----- This patient underwent cardiac catheterization at [facility] today. She should have a virtual follow-up with the interventional AP P and then follow-up with me in the office in 6 months. Patient called in to office to schedule appointments. She stated nothing was mentioned to her about a virtual visit and wanted to schedule her f/u in office. She is on the wait list for a sooner appt. documented in this encounter [facility] 09-23-2023 Telephone encounter Note ----- Message from Lisa Wilson MD sent at 09/23/2023 4:51 PM EST ----- This patient underwent cardiac catheterization at [facility] today. She should have a virtual follow-up with the interventional AP P and then follow-up with me in the office in 6 months. [facility] 09-23-2023 Telephone encounter Note Patient called in to office to schedule appointments. She stated nothing was mentioned to her about a virtual visit and wanted to schedule her f/u in office. She is on the wait list for a sooner appt. [facility] 09-16-2023 Miscellaneous Notes Received order from Leslye at the office. Patient scheduled for cath on 09/23/23 at 130pm at [facility] with T[facility]. Notified Leslye. documented in this encounter [facility] 09-16-2023 Telephone encounter Note Received order from Leslye at the office. Patient scheduled for cath on 09/23/23 at 130pm at [facility] with TLM. Notified Leslye. [facility] 07-08-2023 Evaluation note Encounter Date Diagnosis Assessment Notes Jun, Coronary artery disease (ICD-10 - I25.10) [employer] Other 10-04-2023 Evaluation note* Encounter Date Diagnosis Assessment Notes Treatment Notes Treatment Clinical Notes May, Hyperlipidemia (ICD-10 - E78.5) Resistant to statin medication due to concern for potential side effects. Recommend cardiac calcium score for risk stratification. 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 [employer] Other 09-20-2023 Evaluation note* Encounter Date Diagnosis [...] Hip osteoarthri tis exercises material was printed [employer] Other 09-20-2023 Evaluation note* Encounter Date Diagnosis Assessment Notes Treatment Notes Treatment Clinical Notes Apr, Breast cancer screening (ICD-10 - Z12.39) Apr, Post-menopausal (ICD-10 - Z78.0) [employer] Other 06-05-2023 Procedure [facility]03-16-2023 Evaluation note* Encounter Date Diagnosis Assessment [...] done this past fall from prior PCP [facility] [employer] Other [facility] [employer] Other Evaluation noteNo assessment information available [facility] Work Phone: Evaluation note* Diagnosis Essential hypertension- Primary Unspecified essential hypertension Mixed hyperlipidemia Stenosis of right carotid artery Occlusion and stenosis of carotid artery without mention of cerebral infarction [facility] Diagnosis Carotid stenosis, asymptomatic, bilateral- Primary Stenosis of right carotid artery Occlusion and stenosis of carotid artery without mention of cerebral infarction Varicose veins of bilateral lower extremities with pain [facility] Diagnosis Carotid stenosis, asymptomatic, bilateral- Primary Bilateral carotid artery stenosis Occlusion and stenosis of carotid artery without mention of cerebral infarction Varicose veins of bilateral lower extremities with pain documented [facility] Author Vaibhav Nelson [facility] February 01, 2023 9:31am Note Date/Time February 01, 2023 9:31a m [facility] [address] [place] [address] Gastroenterology H&P Signed Patient: Nelia Alvarado MR#: [id number] : 1955 Acct:[id number] Age/Sex: 67 / F Adm Date: 3 Loc: Room: Type: [facility] Attending Dr: Vaibhav Nelson MD Copies [...] the procedure. Vaibhav Nelson M.D. Documented By: Vaibhav Nelson MD 02/01/23929 Signed By: <Electronically signed by Vaibhav Nelson MD> 02/01/2344 [facility] Work Phone: History general Narrative - Reported* Type Description Date Medical History HTN Medical History DM type 2 Surgical History appendectomy Surgical History tonsilectomy Surgical History adenoidectomy Surgical History PHILIP ankle sx Surgical History x 2 Surgical History back sx in L5, S1 Hospitalization History see above Hospitalization History child x 2 Hospitalization History HTN [employer] Other Hospital Discharge instructions Additional Instructions DISCHARGE [...] pathology -Follow up with PCP. -Office number [phone]. [facility] Work Phone: InstructionsNot on filedocumented in this encounter [facility] filedocumented in this encounter [facility]ructionsNot on filedocumented in this encounter [facility]ructionsNot on filedocumented in this encounter [facility]ructionsNot on filedocumented in this encounter [facility] for referral (narrative)* Consultation (Routine) - Pending Review Specialty Diagnoses / Procedures Referred By Indigo rodriguez Referred To Contact Vascular Surgery Diagnoses Stenosis of right carotid artery Rico Naik APRN-CNP [address] [place] [address] [facility] [address] [place] [address] Referral ID Status Reason Start Date Expiration Date Visits Requested Visits Authorized [id number] Pending Review Specialty Services Required 10/13/2023 10/12/2024 1 1 [facility] Diagnosis Controlled type 2 diabetes mellitus with complication, without long-term current use of insulin (HCC) Advance Directives No Advanced Directives Records FoundDocuments on File Type Date Recorded Patient Paid Search Analyst Expl anation ACP-Advance Directive ACP-Power of Chemical Unit Operator Advance Directive Response Recorded Date/ Time Advance [...] for appt need for screening colonoscopy, prefer [place] if available Diagnosis 1 History of colon katherine yps (Z86.010) Referral Organization [facility] Referring Provider First Name Chiara Referring Provider Last Name Penny Referring Provider Specialty Family Medi cine Referred Organization [facility] Referred Provider Boy Ho Referred Address [address] [place] [phone] Referred Provider Specialty Gastroentero logy Referral Priority Routine General Notes Triny Berry 01:36:07 PM > referral received and sent p2p successful per log Specialty Diagnoses / Procedures Referred By Indigo t Referred To Contact Diagnoses Varicose veins of bilateral lower extremities with pain Procedures Vas venous duplex lwr bilateral Murray Paris MD [address], [address] [address] Referral ID Status Reason Start Date Expiration Date V isits Requested Visits Authorized [id number] Pending Review 10/21/2023 10/20/2024 1 1 Specialty Diagnoses / Procedures Referred By Contac t Referred To Contact Diagnoses Bilateral carotid artery stenosis Procedures Vas carotid duplex bilateral Murray Paris MD [address], [address] [address] Referral ID Status Reason Start Date Expiration Date V isits Requested Visits Authorized [id number] Pending Review 10/21/2023 10/20/2024 1 1 Chief Complaint and Reason for Visit Chief Complaint Hx of Colon Polyps Chief Complaint E11.9 E78.5 Additional Source Comments INFORMATION SOURCE (unrecogn ized section and content) DATE CREATED AUTHOR 07/31/2020 [facility] DATE CREATED AUTHOR AUTHOR'S ORGANIZ ATION 07/08/[address] [facility] DATE CREATED AUTHOR AUTHOR'S ORGANIZ ATION 09/26/2023 [facility] DATE CREATED AUTHOR AUTHOR'S ORGANIZ ATION 10/29/2023 [facility] REASON FOR VISIT (unrecogniz ed section and content) Reason Onset Date Comments Cardiac Cath 09/16/2023 Reason Onset Date Comments s/p CATH 09/23/2023 Reason Onset Date Comments Results 09/27/2023 09/23/23 [facility] Reason Comments Follow-up sp cath 09/23 - sched w pt, on wait list for sooner appt Reason Comments Carotid Artery Disease Stenosis of right carotid artery. Recent testing. Specialty Diagnoses / Procedures Referred By Indigo rodriguez Referred To Contact Vascular Surgery Diagnoses Stenosis of right carotid artery Rcio Naik, COSTUME DIRECTOR-FILBERT GROWER [address] [place] [address] Murray Paris MD [address], [address] [address] Referral ID Status Reason Start Date Expiration Date Visits Requested Visits Authorized [id number] Pending Review Specialty Services Required 10/13/2023 10/12/2024 1 1 Care Teams (unrecognized sec tion and content) Team Status: Active Member Role Status Dates Chiara Penny DO Primary Care Provider Active Team Status: Inactive Member Role Status Dates Vaibhav Nelson MD Attending Provider Active Chiara Penny DO Primary Care Provider Active Team Status: Inactive Member Role Status Dates Chiara Penny DO Primary Care Provider, Rosa ruiz Active Stable Cleaner Relationship Specialty Start Date End Date Peng Harrell DO PCP - General Family Medicine 03/09/17 Stable Cleaner Relationship Specialty Start Date End Date Chiara Penny MD [address] [place] [address] PCP - General Family Medicine 09/23/23 Stable Cleaner Relationship Specialty Start Date End Date Chiara Penny MD [address] [place] [address] PCP - General Family Medicine 09/23/23 Stable Cleaner Relationship Specialty Start Date End Date Chiara Penny MD [address] [place] [address] PCP - General Family Medicine 09/23/23 Stable Cleaner Relationship Specialty Start Date End Date Chiara Penny MD [address] [place] [address] PCP - General [facility] 09/23/23 Stable Cleaner Relationship Specialty Start Date End Date Chiara Penny MD [address] [place] [address] PCP - General Family Medicine 09/23/23 Goals (unrecognized section and content) Goals may [...] BE BASED ON THE PRIMARY CLINICAL RECORDS. [facility]. provides no warranty or guarantee of the accuracy or completeness of information in this document.
== END 2023-11-03 12:59 | disposition home or self-care (01) ==
LOC: VC 12:58
PROVIDERS: PCP Student in an Organized Health Care Education/Training Program; Visit Provider Student in an Organized Health Care Education/Training Program
DX: I83.813 Varicose veins of bilateral lower extremities with pain (principal)
CPT/HCPCS: 93970

== ENCOUNTER 2024-01-19 10:00 | Outpatient (OUT) | payer MEDICARE, OTHER, SELFPAY ==
--- OUTSIDE RECORDS SUMMARY | 2024-01-19 10:07 | XMS_ITS | CCD ---
Author Organization [facility] Care Team Providers Care Clearance Rep Name Role Phone PriyaMilett Primary Care Provider EDGARD MANUEL Referring Unavailable PRIYA MIL CARL Primary Care Unavailable Penny, Chiara Unavailable Asaad, Imad Unavailable MD Vaibhav Nelson Attending Provider [phone] Yony, Chiara A Primary Care Provider [phone] Penny, Chiara A Primary Care Provider [phone] Penny, DO Chiara A Attending Provider [phone] Penny, DO Chiara A Primary Care Provider Penny, DO Chiara A Attending Provider Asaad, Imad Attending Unavailable Penny, Chiara A Primary Care Unavailable Asaad, Imad Admitting Unavailable Penny, Chiara A Admitting Unavailable Penny, Chiara A Primary Care Unavailable Penny, Chiara A Attending Unavailable Penny, Chiara A Admitting Unavailable Penny, Chiara A Primary Care Unavailable Penny, Chiara A Attending Unavailable Peng Harrell DO Primary Care Provider Unava ilable Chiara Penny MD A Primary Care Provider LISA WILSON Referring Unavailable PENG HARRELL Primary Care Unavailable LISA WILSON Referring Unavailable PENG HARRELL Primary Care Unavailable LISA WILSON Referring Unavailable PENG HARRELL Primary Care Unavailable LISA WILSON Attending Unavailable LISA WILSON Referring Unavailable YONY, CHIARA A Primary Care Unavailable LISA WILSON Admitting Unavailable LISA WILSON Attending Unavailable PENG HARRELL Primary Care Unavailable MURRAY PARIS Attending Unavailable CHIARA PENNY Referring Unavailable CHIARA PENNY Primary Care Unavailable LISA WILSON Attending Unavailable PENG HARRELL Referring Unavailable PENG HARRELL Primary Care Unavailable RICO NAIK Attending Unavailable CHIARA PENNY Referring Unavailable CHIARA PENNY Primary Care Unavailable MURRAY PARIS Attending Unavailable RICO NAIK Referring Unavailable CHIARA PENNY Primary Care Unavailable Medications Current Medications Medication Drug Class(es) Dates Sig (Normalized) Sig (Original) aspirin 81 mg delayed release oral tablet (9 sources) Platelet Aggregation Inhibitor, Nonsteroidal Anti-inflammatory Drug Start: 11-17-2023 take 1 tablet by mouth once daily Aspirin (Adult Aspirin Regimen) 81 mg tablet,delayed release (DR/EC) Active 81 MG PO Daily November 17, 2023 12:00am take 1 tablet by mouth in the mo rning aspirin 81 mg Take 1 tablet (81 mg total) by mouth in the morning. 0 Active cetirizine hydrochloride 10 mg oral tablet (18 sources) Histamine-1 Receptor Antagonist Start: 11-16-2023 take 1 tablet by mouth once daily Cetirizine Active 1 TAB PO Daily November 16, 2023 12:00am FreeTextSi tablet Orally Once a day; Note: Source Status: TakingPRN; Refills: 3; Qty: 90 Tablet; Provider: Priya Arceo cetirizine (ZyrT EC) 10 MG chewable tablet Chew 1 tablet (10 mg total) and swallow in the morning. 0 Active take 1 tablet by noemi th every twenty-four hours Cetirizine HCl 10 MG 1 tablet Orally Onc e a day for 90 days PRN Active ubidecarenone 100 mg oral tablet (8 sources) take 1 capsule by mo [facility] once daily UBIDECARENONE (COENZYME Q10) 100 mg [...] Losartan-Hydrochlor othiazide Active 1 TAB PO Daily February 01, 2023 12:00am metFORMIN hydrochloride 500 mg oral tablet (20 sources) Biguanide Start: 2019 take 500 mg by mouth once daily Metformin Active 500 MG PO Daily February 01, 2023 12:00am take 1 tablet by noemi th once daily at breakfast metFORMIN (FORTAMET) 500 MG (OSM) 24 hr tablet Take 1 tablet (500 mg total) by mouth daily with breakfast. 0 Active 24 hr metoprolol succinate 50 mg extended release oral tablet (20 sources) beta-Adrenergic Livan Start: 02-25-2017 take 50 mg by mouth once daily Metoprolol Succinate Active 50 MG PO Daily February 01, 2023 12:00am Multiple Vitamin (MULTI-VITAMIN PO) (1 source) Multiple Vitamin (MULTI-VITAMIN PO) Take by mouth. 0 Active MULTIVITAMIN ORAL (7 sources) take 1 tablet by mouth once daily MULTIVITAMIN ORAL Take 1 tablet by mouth daily. 0 Active omega 0-kmu-ghf-fish oil 1,000 mg (120 mg-180 mg) capsule (7 sources) take 1 capsule by mouth in the morning omega 1-iey-few-fish oil 1,000 mg (120 mg-180 mg) capsule Take 1 capsule by mouth in the morning. 0 Active rosuvastatin calcium 20 mg oral tablet (20 sources) HMG-CoA Reductase Inhibitor Start: 11-16-2023 End: 11-17-2023 take 1 tablet by mouth once daily Rosuvastatin Discontinued 1 TAB PO Daily November 16, 2023 12:00am November 17, 2023 12:09pm FreeTextSi tablet Orally Once a day; Note: Source Status: Start; Refills: 1; Qty: 90 Tablet; Provider: Yony Cr Start: 07-13-2023 take 1 tablet by noemi th every twenty-four hours Rosuvastatin Calcium 10 MG 1 tablet Orally Once a day for 90 days Jun, Active Start: 02-24-2017 End: 11-16-2023 take 20 mg by mouth once daily Rosuvastatin Active 20 MG PO Daily November 17, 2023 12:00am Start: 02-24-2017 End: 09-24-2023 take 0.5 tablet by mouth once daily rosuvastatin (CRESTOR) 20 mg tablet Take 0.5 tablets (10 mg total) by mouth once daily. 1 02/24/2017 09/24/2023 Discontinued (Reorder) traMADol hydrochloride 50 mg oral tablet (8 [...] Sig (Normalized) Sig (Original) polyethylene glycol 3350 [id number] mg / potassium chloride 2970 mg / sodium bicarbonate 6740 mg / sodium chloride 5860 mg / sodium sulfate 88675 mg powder for oral solution (6 sources) Osmotic Laxative Start: 11-24-2022 PEG-3350/Electroly lissy 236 GM as directed Orally once daily for 1 days Oct, Not-Taking Problems Active Problems Problem Classification Problem Date Documented Date Episodic/Chronic Cardiac dysrhythmias (1 source) Unspecified atrial fibrillation; Translations: [Unspecified atrial fibrillation] Onset: 08-17-2023 Chronic Chronic kidney disease (8 sources) Chronic kidney disease; Translations: [Chronic kidney disease, unspecified] Onset: 03-09-2017 10-23-2011 Chronic Coronary atherosclerosis and other heart disease (3 sources) Coronary arteriosclerosis; Translations: [Atherosclerotic heart disease of [place] coronary artery without angina pectoris] Chronic Diabetes mellitus without complication (20 sources) Type 2 diabetes mellitus; Translations: [Type 2 diabetes mellitus without complication] Onset: 10-22-2016 10-22-2016 Chronic Disorders of lipid metabolism (20 sources) Mixed hyperlipidemia; Translations: [Hyperlipidemia] Onset: 03-09-2017 10-23-2011 Chronic Esophageal disorders (8 sources) Gastroesophageal reflux disease; Translations: [Gastro-esophageal reflux disease without esophagitis] Onset: 03-09-2017 10-23-2011 Chronic Essential hypertension (20 sources) Essential hypertension; Translations: [Essential (primary) hypertension] Onset: 06-19-2016 06-19-2016 Chronic Occlusion or stenosis of precerebral arteries (8 sources) Right carotid artery stenosis; Translations: [Occlusion and stenosis of right carotid artery] Onset: 10-13-2023 10-13-2023 Chronic Osteoarthritis (8 sources) Osteoarthritis; Translations: [Unspecified osteoarthritis, unspecified site] Onset: 03-09-2017 Resolved: 09-30-2018 09-30-2018 Chronic Other and unspecified benign neoplasm (10 sources) History of polyp of colon; Translations: [Personal history of colonic polyps] Episodic Other and unspecified benign neoplasm (1 source) Personal history of colonic polyps Episodic Other circulatory disease (7 sources) Carotid bruit; Translations: [Other specified symptoms and signs involving the circulatory and respiratory systems] Onset: 08-17-2023 08-17-2023 Episodic Other non-traumatic joint disorders (1 source) Pain in right hip Episodic Other upper respiratory disease (8 sources) Allergic rhinitis; Translations: [Allergic rhinitis, unspecified] Onset: 12-11-2011 12-11-2011 Chronic Other upper respiratory disease (3 sources) Other seasonal allergic rhinitis; Translations: [Seasonal allergies] Chronic Other upper respiratory disease (5 sources) Seasonal allergy; Translations: [Other seasonal allergic rhinitis] 11-16-2023 Chronic Residual codes; unclassified (1 source) Asymptomatic menopausal state Episodic Substance-related disorders (10 sources) Tobacco user; Translations: [Nicotine dependence, cigarettes, uncomplicated] 11-16-2023 Chronic Unclassified (1 source) Encounter for screening for malignant neoplasm of colon; Translations: [Encounter for screening for malignant neoplasm of colon] Onset: 02-01-2023 Unclassified (1 source) Abnormal CTA COrs Onset: 09-23-2023 Unclassified (1 source) Carotid Artery Disease Onset: 10-21-2023 Unclassified (1 source) New Patient Onset: 08-17-2023 Varicose veins of lower extremity (4 sources) Varicose veins of lower extremity; Translations: [Varicose veins of bilateral lower extremities with pain] Onset: 10-21-2023 10-21-2023 Episodic Past or Other Problems Problem Classification Problem Date Documented Date Episodic/Chronic Genitourinary symptoms and ill-defined conditions (9 sources) Microalbuminuria; Translations: [Blood in urine] Onset: 10-22-2016 Resolved: 09-30-2018 09-30-2018 Episodic Nonspecific chest pain (2 sources) Precordial pain; Translations: [Precordial pain] Onset: 08-17-2023 Episodic Other and unspecified benign neoplasm (1 source) Benign neoplastic disease; Translations: [Multiple adenomatous polyps] Onset: 09-28-2017 Resolved: 09-30-2018 09-30-2018 Episodic Other circulatory disease (2 sources) Other specified symptoms and signs involving the circulatory and respiratory systems; Translations: [Other specified symptoms and signs involving the circulatory and respiratory systems] Onset: 08-17-2023 Episodic Other connective tissue disease (8 sources) [...] pain] Onset: 07-24-2012 Resolved: 05-16-2018 05-16-2018 Other screening for suspected conditions (not mental disorders or infectious disease) (20 sources) Electrocardiogram abnormal; Translations: [Encounter for other screening for malignant neoplasm of breast] Onset: 06-03-2013 Resolved: 09-30-2018 09-30-2018 Episodic Other skin disorders (8 sources) Loss of [...] Test Name Value Interpretation Reference Range Facility [facility] Fatuma Muriel Gutierrez [facility]-2023 [email or web address] Glucose Glucometer (BldC) [M ass/Vol]on 09-23-2023 Glucose [Mass/Vol] 97 mg/dL Normal 65-99 [facility] CT CTA COR ARTERIES W OR WO [...] an independent workstation.. CT Derived Fractional Flow [place] (FFRct) Analysis: FFRct is only obtained on [...] specific isch (more content not included)... Normal [facility] CT FFRCT HEARTFLOWon 024 CT FFRCT HEARTFLOW [...] an independent workstation.. CT Derived Fractional Flow [place] (FFRct) Analysis: FFRct is only obtained on [...] the right (more content not included)... Normal [facility] Creatinine (Bld) [Mass/Vol]o n 09-14-2023 Creatinine [Mass/Vol] 1.6 mg/dL High 0.4-1.0 [facility] Comment on above: Result Comment: METH OD TRACEABLE TO IDMS STANDARD Performed By: #### 3 8483-4 #### RUSSELL DILL ([id number]) [address] [place] [address], GFR/1.73 sq M.predicted among non-blacks MDRD (S/P/Bld) [Vol rate/Area] 35 mL/min/{1.73_m2} Low >59 [facility] Comment on above: Result Comment: Reported eGFR is based on the CKD-EPI 2020 equation that does not use a race coefficient. Performed By: #### 3 8483-4 #### RUSSELL DILL ([id number]) [address] [place] [address], CT heart calcium score woon 07-07-2023 CT heart calcium score wo [facility] [place] [place] [address] CT Scan Report Signed Patient: Nelia Burns MR#: [id number] : 1955 Acct:[id number] Age/Sex: 68 / F ADM Date: 07/07/23 Loc: CT Room: Type: [facility] Attending Dr: Chiara Penny DO Copies [...] Mil Naranjo M.D.07/07/2023 4:49 PM Dictation Location: [place] [address] Transcribed By: AMY 07/07/23 164 Dictated By: Mil Naranjo II, MD 07/07/23 1639 Signed By: 07/07/[address] [facility] A1C HEMOGLOBINon 05-19-2023 HbA1c (Bld) [Mass fraction] 6.2 % [employer] Other Alanine aminotransferase [En zymatic activity/volume] in Serum or PlasmaOrdered By: Chiara Penny on 05-19-2023 ALT [Catalytic activity/Vol] 14 U/L 7-52 [facility] Albumin [Mass/volume] in Ser um or Plasma by Bromocresol green (BCG) dye binding methoOrdered By: Chiara Penny on 05-19-2023 Albumin BCG dye [Mass/Vol] 4.4 g/dL 3.5-5.7 [facility] Alkaline phosphatase [Enzyma tic activity/volume] in Serum or PlasmaOrdered By: Chiara Penny on 05-19-2023 ALP [Catalytic activity/Vol] 50 U/L 34-104 [facility] Aspartate aminotransferase [ Enzymatic activity/volume] in Serum or PlasmaOrdered By: Chiara Penny on 05-19-2023 AST [Catalytic activity/Vol] 15 U/L 13-39 [facility] Bilirubin.total [Mass/volume ] in Serum or PlasmaOrdered By: Chiara Penny on 05-19-2023 Bilirubin [Mass/Vol] 0.3 mg/dL 0.3-1.0 [facility] Calcium [Mass/volume] in Ser um or PlasmaOrdered By: Chiara Penny on 05-19-2023 Calcium [Mass/Vol] 10.1 mg/dL 8.6-10.3 [facility] Carbon dioxide, total [Moles /volume] in Serum or PlasmaOrdered By: Chiara Penny on 05-19-2023 CO2 [Moles/Vol] 31.1 mmol/L 21.0-31.0 [facility] Chloride [Moles/volume] in S radha or PlasmaOrdered By: Chiara Penny on 05-19-2023 Chloride [Moles/Vol] 101 mmol/L 98-107 [facility] Cholesterol [Mass/volume] in Serum or PlasmaOrdered By: Chiara Penny on 05-19-2023 Cholesterol [Mass/Vol] 332 mg/dL 140-200 [facility] Comment on above: Chol less than 200 m g/dl low riskChol 201-239 mg/dl borderline riskChol 240 mg/dl and greater high risk Cholesterol in LDL Calc [Mas s/Vol]Ordered By: Chiara Penny on 05-19-2023 Cholesterol in LDL [Mass/Vol] 226 mg/dL 0-100 [facility] Comment on above: LDL ATP III CLASSIFI CATIONLDL less than 100 mg/dL OptimalLDL 100-129 mg/dL Near or above optimalLDL 130-159 mg/dL Borderline highLDL 160-189 mg/dL HighLDL greater than 189 mg/dL Very high Cholesterol in VLDL Calc [Ma ss/Vol]Ordered By: Chiara Penny on 05-19-2023 Cholesterol in VLDL [Mass/Vol] 65 mg/dL [facility] Comprehensive Metabolic Pane frederick 05-19-2023 Albumin [Mass/Vol] 4.4 g/dL Normal 3.5-5.7 [facility] Comment on above: Order Comment: Reaso n for Exam Type 2 diabetes mellitus without complication, without long- FASTING. JKW Performed By: #### L IPID, URMA, CMP, CBCNO #### [facility] [address] Albumin/Globulin [Mass ratio] 1.6 {ratio} Normal [facility] Comment on above: Order Comment: Reaso n for Exam Type 2 diabetes mellitus without complication, without long- FASTING. JKW Performed By: #### L IPID, URMA, CMP, CBCNO #### [facility] [address] ALP [Catalytic activity/Vol] 50 U/L Normal 34-104 [facility] Comment on above: Order Comment: Reaso n for Exam Type 2 diabetes mellitus without complication, without long- FASTING. JKW Performed By: #### L IPID, URMA, CMP, CBCNO #### [facility] [address] ALT [Catalytic activity/Vol] 14 U/L Normal 7-52 [facility] Comment on above: Order Comment: Reaso n for Exam Type 2 diabetes mellitus without complication, without long- FASTING. JKW Performed By: #### L IPID, URMA, CMP, CBCNO #### [address] Anion gap [Moles/Vol] 11.3 mmol/L Normal 6.0-15.0 [facility] Comment on above: Order Comment: Reaso n for Exam Type 2 diabetes mellitus without complication, without long- FASTING. JKW Performed By: #### L IPID, URMA, CMP, CBCNO #### [address] AST [Catalytic activity/Vol] 15 U/L Normal 13-39 [facility] Comment on above: Order Comment: Reaso n for Exam Type 2 diabetes mellitus without complication, without long- FASTING. JKW Performed By: #### L IPID, URMA, CMP, CBCNO #### [address] Bilirubin [Mass/Vol] 0.3 mg/dL Normal 0.3-1.0 [facility] Comment on above: Order Comment: Reaso n for Exam Type 2 diabetes mellitus without complication, without long- FASTING. JKW Performed By: #### L IPID, URMA, CMP, CBCNO #### [address] [place] [address] [place] Calcium [Mass/Vol] 10.1 mg/dL Normal 8.6-10.3 [facility] Comment on above: Order Comment: Reaso n for Exam Type 2 diabetes mellitus without complication, without long- FASTING. JKW Performed By: #### L IPID, URMA, CMP, CBCNO #### [facility] [address] Chloride [Moles/Vol] 101 mmol/L Normal 98-107 [facility] Comment on above: Order Comment: Reaso n for Exam Type 2 diabetes mellitus without complication, without long- FASTING. JKW Performed By: #### L IPID, URMA, CMP, CBCNO #### [facility] [address] CO2 [Moles/Vol] 31.1 mmol/L High 21.0-31.0 [facility] Comment on above: Order Comment: Reaso n for Exam Type 2 diabetes mellitus without complication, without long- FASTING. JKW Performed By: #### L IPID, URMA, CMP, CBCNO #### [facility] [address] Creatinine [Mass/Vol] 1.17 mg/dL Normal 0.60-1.20 [facility] Comment on above: Order Comment: Reaso n for Exam Type 2 diabetes mellitus without complication, without long- FASTING. JKW Performed By: #### L IPID, URMA, CMP, CBCNO #### [facility] [address] GFR/1.73 sq M.predicted MDRD (S/P/Bld) [Vol rate/Area] 51.144 mL/min/{1.73_m2} Normal [facility] Comment on above: Order Comment: Reaso n for Exam Type 2 diabetes mellitus without complication, without long- FASTING. JKW Performed By: #### L IPID, URMA, CMP, CBCNO #### [facility] [address] Globulin (S) [Mass/Vol] 2.8 g/dL Normal [facility] Comment on above: Order Comment: Reaso n for Exam Type 2 diabetes mellitus without complication, without long- FASTING. JKW Performed By: #### L IPID, URMA, CMP, CBCNO #### [facility] [address] [place] [id number] [place] Glucose [Mass/Vol] 122 mg/dL High 70-100 [facility] Comment on above: Order Comment: Reaso n for Exam Type 2 diabetes mellitus without complication, without long- FASTING. JKW Result Comment: [place] Glucose Reference Range is dependent on time and content of last meal. Glucose of more than 200 mg/dL in a nonstressed, ambulatory subject supports the diagnosis of Diabetes Mellitus. ADA recommended reference range Performed By: #### L IPID, URMA, CMP, CBCNO #### [facility] [address] [place] [address] [place] Potassium [Moles/Vol] 4.4 mmol/L Normal 3.5-5.1 [facility] Comment on above: Order Comment: Reaso n for Exam Type 2 diabetes mellitus without complication, without long- FASTING. JKW Performed By: #### L IPID, URMA, CMP, CBCNO #### [facility] [address] [place] [address] [place] Protein [Mass/Vol] 7.2 g/dL Normal 6.4-8.9 [facility] Comment on above: Order Comment: Reaso n for Exam Type 2 diabetes mellitus without complication, without long- FASTING. JKW Performed By: #### L IPID, URMA, CMP, CBCNO #### [facility] [address] [place] [id number] [place] Sodium [Moles/Vol] 139 mmol/L Normal 136-145 [facility] Comment on above: Order Comment: Reaso n for Exam Type 2 diabetes mellitus without complication, without long- FASTING. JKW Performed By: #### L IPID, URMA, CMP, CBCNO #### [facility] [address] [place] [id number] [place] Urea nitrogen [Mass/Vol] 20 mg/dL Normal 7-25 [facility] Comment on above: Order Comment: Reaso n for Exam Type 2 diabetes mellitus without complication, without long- FASTING. JKW Performed By: #### L IPID, URMA, CMP, CBCNO #### [facility] [address] Creatinine [Mass/volume] in Serum or PlasmaOrdered By: Chiara Penny on 05-19-2023 Creatinine [Mass/Vol] 1.17 mg/dL 0.60-1.20 [facility] Erythrocyte distribution wid th Auto (RBC) [Ratio]Ordered By: Chiara Penny on 05-19-2023 Erythrocyte distribution width (RBC) [Ratio] 13.2 % 11.9-15.3 [facility] Globulin Calc (S) [Mass/Vol] Ordered By: Chiara Penny on 05-19-2023 Globulin (S) [Mass/Vol] 2.8 g/dL [facility] Glucose [Mass/volume] in Ser um or PlasmaOrdered By: Chiara Penny on 05-19-2023 Glucose [Mass/Vol] 122 mg/dL 70-100 [facility] Comment on above: ADA recommended refe rence rangeRandom Glucose Reference Range is dependent on time and content of last meal. Glucose of more than 200 mg/dL in a nonstressed, ambulatory subject supports the diagnosis of Diabetes Mellitus. HbA1c (Bld) [Mass fraction]o n 05-19-2023 A1C HEMOGLOBIN SLID Other Hematocrit Auto (Bld) [Volum e fraction]Ordered By: Chiara Penny on 05-19-2023 Hematocrit (Bld) [Volume fraction] 38.0 % 34.0-46.4 [facility] Hemoglobin [Mass/volume] in BloodOrdered By: Chiara Penny on 05-19-2023 Hemoglobin (Bld) [Mass/Vol] 12.7 g/dL 11.8-15.4 [facility] Hemogram CBC Without Diffon 05-19-2023 Erythrocyte distribution width (RBC) [Ratio] 13.2 % Normal 11.9-15.3 [facility] Comment on above: Order Comment: Reaso n for Exam Type 2 diabetes mellitus without complication, without long- Performed By: #### L IPID, URMA, CMP, CBCNO #### [address] Hematocrit (Bld) [Volume fraction] 38.0 % Normal 34.0-46.4 [facility] Comment on above: Order Comment: Reaso n for Exam Type 2 diabetes mellitus without complication, without long- Performed By: #### L IPID, URMA, CMP, CBCNO #### [address] Hemoglobin (Bld) [Mass/Vol] 12.7 g/dL Normal 11.8-15.4 [facility] Comment on above: Order Comment: Reaso n for Exam Type 2 diabetes mellitus without complication, without long- Performed By: #### L IPID, URMA, CMP, CBCNO #### [address] MCH (RBC) [Entitic mass] 30.7 pg Normal 24.7-34.3 [facility] Comment on above: Order Comment: Reaso n for Exam Type 2 diabetes mellitus without complication, without long- Performed By: #### L IPID, URMA, CMP, CBCNO #### [address] MCV (RBC) [Entitic vol] 92.2 fL Normal 80-100 [facility] Comment on above: Order Comment: Reaso n for Exam Type 2 diabetes mellitus without complication, without long- Performed By: #### L IPID, URMA, CMP, CBCNO #### [address] Mean Corpuscular HGB Conc 33.3 g/dL Normal 32.0-35.0 [facility] Comment on above: Order Comment: Reaso n for Exam Type 2 diabetes mellitus without complication, without long- Performed By: #### L IPID, URMA, CMP, CBCNO #### [address] Platelet mean volume (Bld) [Entitic vol] 9.0 fL Normal 6.3-10.7 [facility] Comment on above: Order Comment: Reaso n for Exam Type 2 diabetes mellitus without complication, without long- Result Comment: PERF ORMED BY: [place] [address] PATHOLOGIST REGULATORY CONSULTANT HERMAN STOUT M.D. Performed By: #### L IPID, URMA, CMP, CBCNO #### [facility] [address] [place] [address] [place] Platelets (Bld) [#/Vol] 332 10*3/uL Normal 150-450 [facility] Comment on above: Order Comment: Reaso n for Exam Type 2 diabetes mellitus without complication, without long- Performed By: #### L IPID, URMA, CMP, CBCNO #### [facility] [address] [place] [address] [place] RBC (Bld) [#/Vol] 4.12 10*6/uL Normal 3.60-5.[address] [facility] Comment on above: Order Comment: Reaso n for Exam Type 2 diabetes mellitus without complication, without long- Performed By: #### L IPID, URMA, CMP, CBCNO #### [facility] [address] [place] [address] [place] WBC (Bld) [#/Vol] 8.4 10*3/uL Normal 3.8-11.6 [facility] Comment on above: Order Comment: Reaso n for Exam Type 2 diabetes mellitus without complication, without long- Performed By: #### L IPID, URMA, CMP, CBCNO #### [facility] [address] [place] [address] [place] Leukocytes [#/volume] correc jose for nucleated erythrocytes in Blood by Automated counOrdered By: Chiara Penny on 05-19-2023 WBC corrected for nucl RBC Auto (Bld) [#/Vol] 8.4 10*3/uL 3.8-11.6 [facility] Lipid Panelon 05-19-2023 Cholesterol [Mass/Vol] 332 mg/dL High 140-200 [facility] Comment on above: Order Comment: Reaso n for Exam Type 2 diabetes mellitus without complication, without long- FASTING. JKW Result Comment: Chol less than 200 mg/dl low risk Chol 201-239 mg/dl borderline risk Chol 240 mg/dl and greater high risk Performed By: #### L IPID, URMA, CMP, CBCNO #### [facility] [address] [place] [address] [place] Cholesterol in HDL [Mass/Vol] 41 mg/dL Normal 23-92 [facility] Comment on above: Order Comment: Reaso n for Exam Type 2 diabetes mellitus without complication, without long- FASTING. JKW Result Comment: HDL CHOL ATP-III CLASSIFICATION Cardiovascular Risk HDL > or equal to 60 mg/dL LOW HDL < 40 mg/dL HIGH Performed By: #### L IPID, URMA, CMP, CBCNO #### [facility] [address] Cholesterol.total/Brianna sterol in HDL [Mass ratio] 8.1 {ratio} Normal <5.0 [facility] Comment on above: Order Comment: Reaso n for Exam Type 2 diabetes mellitus without complication, without long- FASTING. JKW Result Comment: PERF ORMED BY: [place] [address] PATHOLOGIST REGULATORY CONSULTANT HERMAN STOUT M.D. Performed By: #### L IPID, URMA, CMP, CBCNO #### [facility] [address] LDL Cholesterol,Calculated 226 mg/dL High 0-100 [facility] Comment on above: Order Comment: Reaso [...] #### L IPID, URMA, CMP, CBCNO #### [facility] [address] [place] [address] [place] Triglyceride w/Reflex 325 mg/dL High 0-149 [facility] Comment on above: Order Comment: Reaso [...] #### L IPID, URMA, CMP, CBCNO #### [facility] [address] VLDL CHOLESTEROL 65 mg/dL Normal [facility] Comment on above: Order Comment: Reaso n for Exam Type 2 diabetes mellitus without complication, without long- FASTING. JKW Performed By: #### L IPID, URMA, CMP, CBCNO #### [facility] [address] MCH Auto (RBC) [Entitic mass ]Ordered By: Chiara Penny on 05-19-2023 MCH (RBC) [Entitic mass] 30.7 pg 24.7-34.3 [facility] MCHC Auto (RBC) [Mass/Vol]Or dered By: Chiara Penny on 05-19-2023 MCHC (RBC) [Mass/Vol] 33.3 g/dL 32.0-35.0 [facility] MCV Auto (RBC) [Entitic vol] Ordered By: Chiara Penny on 05-19-2023 MCV (RBC) [Entitic vol] 92.2 fL 80-100 [facility] Microalbumin [Mass/volume] i n UrineOrdered By: Chiara Penny on 05-19-2023 Albumin DL <= 20 mg/L (U) [Mass/Vol] mg/dL 0.0-1.8 [facility] Microalbumin, Urine (Random) on 05-19-2023 Albumin DL <= 20 mg/L (U) [Mass/Vol] mg/dL High 0.0-1.8 [facility] Comment on above: Order Comment: Reaso n for Exam Type 2 diabetes mellitus without complication, without long- Result Comment: PERF ORMED BY: [facility] [address] [place] [address] PATHOLOGIST REGULATORY CONSULTANT HERMAN STOUT M.D. Performed By: #### L IPID, URMA, CMP, CBCNO #### [facility] [address] No Panel InformationOrdered By: Chiara Penny on 05-19-2023 Estimated GFR (CKD-EPI) 51.144 mL/Min [facility] Creatinine Clearance (Chem N/A [facility] Platelet mean volume Auto (B ld) [Entitic vol]Ordered By: Chiara Penny on 05-19-2023 Platelet mean volume (Bld) [Entitic vol] 9.0 fL 6.3-10.7 [facility] Platelets Auto (Bld) [#/Vol] Ordered By: Chiara Penny on 05-19-2023 Platelets (Bld) [#/Vol] 332 10*3/uL 150-450 [facility] Potassium [Moles/volume] in Serum or PlasmaOrdered By: Chiara Penny on 05-19-2023 Potassium [Moles/Vol] 4.4 mmol/L 3.5-5.1 [facility] Protein [Mass/volume] in Ser um or PlasmaOrdered By: Chiara Penny on 05-19-2023 Protein [Mass/Vol] 7.2 g/dL 6.4-8.9 [facility] RBC Auto (Bld) [#/Vol]Ordere d By: Chiara Penny on 05-19-2023 RBC (Bld) [#/Vol] 4.12 10*6/uL 3.60-5.[address] [facility] Serum or plasma albumin/glob ulin mass ratioOrdered By: Chiara Penny on 05-19-2023 Albumin/Globulin [Mass ratio] 1.6 {ratio} [facility] Serum or plasma anion gap de terminationOrdered By: Chiara Penny on 05-19-2023 Anion gap [Moles/Vol] 11.3 mmol/L 6.0-15.0 [facility] Serum or plasma high density lipoprotein (HDL) cholesterol measurementOrdered By: Chiara Penny on 05-19-2023 Cholesterol in HDL [Mass/Vol] 41 mg/dL 23-92 [facility] Comment on above: HDL CHOL ATP-III CLA SSIFICATION Cardiovascular RiskHDL > or equal to 60 mg/dL LOWHDL < 40 mg/dL HIGH Serum or plasma total choles terol/high density lipoprotein (HDL) cholesterol mass ratOrdered By: Chiara Penny on 05-19-2023 Cholesterol.total/Brianna sterol in HDL [Mass ratio] 8.1 {ratio} <5.0 [facility] Sodium [Moles/volume] in Ser um or PlasmaOrdered By: Chiara Penny on 05-19-2023 Sodium [Moles/Vol] 139 mmol/L 136-145 [facility] Triglyceride [Mass/volume] i n Serum or PlasmaOrdered By: Chiara Penny on 05-19-2023 Triglyceride [Mass/Vol] 325 mg/dL 0-149 [facility] Comment on above: TRIG ATP III CLASSIF ICATIONTRIG less than 150 mg/dL NormalTRIG 150-199 mg/dL Borderline highTRIG 200-500 mg/dL High TRIG greater than 500 mg/dL Very highStandard traceable to the Center for Disease Conrtrol and Prevention (CDC) test method. Urea nitrogen [Mass/volume] in Serum or PlasmaOrdered By: Chiara Penny on 05-19-2023 Urea nitrogen [Mass/Vol] 20 mg/dL 03-23 [facility] Glucose Glucometer (BldC) [M ass/Vol]Ordered By: Vaibhav Nelson on 02-01-2023 Glucose [Mass/Vol] 120 mg/dL [facility] Comment on above: Random Glucose Refer ence Range is dependent on time and content of last meal. Glucose of more than 200 mg/dL in a nonstressed, ambulatory subject supports the diagnosis of Diabetes Mellitus. Glucose Poct Glucometerson 0 02-01-2023 Commemt1 Glu2: Cleaned Meter Normal [facility] Comment on above: Result Comment: PERF ORMED BY: [facility] [address] [place] [address] PATHOLOGIST REGULATORY CONSULTANT HERMAN STOUT M.D. Performed By: #### G LULS #### Point of Care testing , Glucose [Mass/Vol] 120 mg/dL Normal [facility] Comment on above: Result Comment: [place] Glucose Reference Range is dependent on time and content of last meal. Glucose of more than 200 mg/dL in a nonstressed, ambulatory subject supports the diagnosis of Diabetes Mellitus. Performed By: #### G MICHELLE #### Point of Care testing , [place] 02-01-2023 L -- ---- Specimen: [id number] Received: 02/01/23 Status: BARBARA Lara Num: [id number] Spec Type: Surgical Subm Dr: Vaibhav Nelson MD Tissues: A Colon Biopsy (DESCENDING POLYPS) B Colon Biopsy (SIGMOID POLYP) Procedures: Abhilash DIAZ/Anastasiya L4/2 ---- Age/ Patient Sex Location Account Attending Physician ---- Nelia Burns 67/F [id number] Vaibhav Nelson MD ---- SPEC NUM: [id number] RECD: 02/01/23 STATUS: BARBARA ABELLit NUM: [id number] SARAH: 02/01/23- SUBM DR: Vaibhav Nelson MD ENTERED: 02/01/23-[address] [facility] [address]: SPEC TYPE: Surgical DEPT: S ORDERED: [...] in one cassette labeled B1. ---- Specimen: Received: 02/01/23 Status: BARBARA Lara Num: [id number] Spec Type: Surgical Subm Dr: Vaibhav Nelson MD Tissues: A Colon Biopsy (DESCENDING POLYPS) B Colon Biopsy (SIGMOID POLYP) Procedures: HE/4, Gross/Micro L4/2 ---- Patient: Nelia Burns [id number] (Continued) ---- Specimen: [id number] Received: 02/01/23 (Continued) Signed (signature on file) Suri Aguirre MD 02/02/23 0950 ---- Specimen: [id number] Received: 02/01/23 Status: BARBARA Lara Num: [id number] Spec Type: Surgical Subm Dr: Vaibhav Nelson MD Tissues: A Colon Biopsy (DESCENDING POLYPS) B Colon Biopsy (SIGMOID POLYP) Procedures: HALINA/Abhilash Byrne/Anastasiya L4/2 ---- Patient: Nelia Burns [id number] (Continued) ---- Specimen: [id number] Received: 02/01/23 (Continued) Microscopic Description A. Two H E slides reviewed. The microscopic examination confirms the diagnosis. B. Two H E slides reviewed. The microscopic examination confirms the diagnosis. CPT Codes 78465a1 ---- ---- Specimen: [id number] Received: 02/01/23 Status: BARBARA Lara Num: [id number] Spec Type: Surgical Subm Dr: Vaibhav Nelson MD Tissues: A Colon Biopsy (DESCENDING POLYPS) B Colon Biopsy (SIGMOID POLYP) Procedures: HE/4, Gross/Micro L4/2 ---- Patient: Nelia Burns [id number] (Continued) ---- Signed (signature on file) Suri Aguirre MD 02/02/[address] [facility] No Panel InformationOrdered By: Vaibhav Nelson on 02-01-2023 Bedside Glucose Comment Glu2: cleaned meter [facility] A1C HEMOGLOBINon 11-12-2022 HbA1c (Bld) [Mass fraction] 6.7 % [facility] Other HbA1c (Bld) [Mass fraction]o n 11-12-2022 A1C HEMOGLOBIN SLID Other Microalb.,Random Uron 2019 Microalb/Creat Ratio 1005 mcg/mg creat High <25 [facility] Comment on above: Performed By: #### U RNMAB #### [facility] [employer] [address] [place] [address] [phone] Librarian: Jamie Brantley MD Microalbumin conc. 1230 mg/L High <21 [facility] Comment on above: Performed By: #### U RNMAB #### [facility] [address] [place] [address] [id number] Librarian: Jamie Brantley MD Creatinine [Mass/Vol] 122.4 mg/dL Normal 28.0-217.0 [facility] Comment on above: Performed By: #### U RNMAB #### [facility] [address] [place] [address] [phone] Librarian: Jamie Brantley MD Microalbumin, Uron 0 Albumin/Creatinine DL <= 20 mg/L (24H U) [Mass ratio] 1230 mg/L High <21 [place] Albumin/Creatinine DL <= 20 mg/L (U) [Ratio] 1005 High <25 mcg/mg creat [place] Creatinine [Mass/Vol] 122.4 mg/dL 28 - 2 17 mg/dL [place] Interpretation and review of laboratory results Abnormal [place] Vital Signs Date Time Vital Sign Value Performing Clinician Facility 11-17-2023 12:02-0400 Body height 157.48 cm [facility] 11-17-2023 12:02-0400 Body mass index (BMI) [Ratio] 33.5 kg/m2 [facility] 11-17-2023 12:02-0400 Body weight 83.14 kg [facility] 11-17-2023 12:02-0400 Diastolic blood pressure 78 mm[Hg] [facility] 11-17-2023 12:02-0400 Heart rate 60 /min [facility] 11-17-2023 12:02-0400 Respiratory rate 18 /min [facility] 11-17-2023 12:02-0400 SaO2% (BldA) [Mass fraction] 97 % [facility] 11-17-2023 12:02-0400 Systolic blood pressure 154 mm[Hg] [facility] 10-21-2023 10:50-0500 Diastolic blood pressure 82 mm[Hg] Murray Paris MD Work Phone: [facility] 10-21-2023 10:50-0500 Heart rate 77 /min Murray Paris MD Work Phone: [facility] 10-21-2023 10:50-0500 Systolic blood pressure 151 mm[Hg] Murray Paris MD Work Phone: [facility] 10-21-2023 10:49-0500 Body height 165.1 cm Murray Paris MD Work Phone: [facility] 10-21-2023 10:49-0500 Body mass index (BMI) [Ratio] 30.52 kg/m2 Murray Paris MD Work Phone: [facility] 10-21-2023 10:49-0500 Body weight 83.19 kg Murray Paris MD Work Phone: [facility] 10-13-2023 14:03-0500 Body height 157.5 cm Mischell Martin [employer] SUPERINTENDENT-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 Work Phone: [employer] 10-13-2023 14:03-0500 Body mass index (BMI) [Ratio] 33.47 kg/m2 Mischell Martin [employer] SUPERINTENDENT-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 Work Phone: [employer] [facility] 10-13-2023 14:03-0500 Body weight 83.01 kg Mischell Martin [employer] SUPERINTENDENT-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 Work Phone: [employer] [facility] 10-13-2023 14:03-0500 Diastolic blood pressure 66 mm[Hg] Mischell Martin [employer] SUPERINTENDENT-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 Work Phone: [employer] [facility] 10-13-2023 14:03-0500 Heart rate 63 /min Mischell Martin [employer] SUPERINTENDENT-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 Work Phone: [employer] 10-13-2023 14:03-0500 SaO2% (BldA) [Mass fraction] 95 % Mischell Martin [employer] SUPERINTENDENT-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 Work Phone: [employer] [facility] 10-13-2023 14:03-0500 Systolic blood pressure 130 mm[Hg] Mischell Martin [employer] SUPERINTENDENT-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 Work Phone: [employer] [facility] 06-02-2023 13:15-0400 Body height 157.48 cm Chiara Penny Other [employer] Other 06-02-2023 13:15-0400 Body mass index (BMI) [Ratio] 32.74 kg/m2 Chiara Penny Other [employer] Other 06-02-2023 13:15-0400 Body weight 81.19 kg Chiara Penny Other [employer] Other 06-02-2023 13:15-0400 Diastolic blood pressure 84 mm[Hg] Chiara Penny Other [employer] Other 06-02-2023 13:15-0400 Respiratory rate 18 /min Chiara Penny Other [employer] Other 06-02-2023 13:15-0400 SaO2% (BldA) [Mass fraction] 97 % Chiara Penny Other [employer] Other 06-02-2023 13:15-0400 Systolic blood pressure 152 mm[Hg] Chiara Penny Other [employer] Other 05-19-2023 11:45-0400 Body height 157.48 cm Chiara Penny Other [employer] Other 05-19-2023 11:45-0400 Body mass index (BMI) [Ratio] 32.97 kg/m2 Chiara Penny Other [employer] Other 05-19-2023 11:45-0400 Body weight 81.78 kg Chiara Penny Other [employer] Other 05-19-2023 11:45-0400 Diastolic blood pressure 82 mm[Hg] Chiara Penny Other [employer] Other 05-19-2023 11:45-0400 Respiratory rate 18 /min Chiara Penny Other [employer] [facility] [employer] Other 05-19-2023 11:45-0400 SaO2% (BldA) [Mass fraction] 97 % Chiara Penny Other [employer] [facility] [employer] Other 05-19-2023 11:45-0400 Systolic blood pressure 138 mm[Hg] Chiara Penny Other [facility] [employer] Other 02-01-2023 10:22-0400 Diastolic blood pressure 61 mm[Hg] DO Chiara Penny Work Phone: [facility] 02-01-2023 10:22-0400 Heart rate 57 /min DO Chiara Penny Work Phone: [facility] 02-01-2023 10:22-0400 Respiratory rate 16 /min DO Chiara Penny Work Phone: [facility] 02-01-2023 10:22-0400 SaO2% (BldA) [Mass fraction] 97 % DO Chiara Penny Work Phone: [facility] 02-01-2023 10:22-0400 Systolic blood pressure 122 mm[Hg] DO Chiara Penny Work Phone: [facility] 02-01-2023 08:52-0400 Body height 157.48 cm DO Chiara Penny Work Phone: [facility] 02-01-2023 08:52-0400 Body temperature 98 [degF] DO Chiara Penny Work Phone: [facility] 02-01-2023 08:52-0400 Body weight 78.92 kg DO Chiara Penny Work Phone: [facility] 11-12-2022 12:00-0400 Body height 157.48 cm Chiara Penny Other [employer] Other 11-12-2022 12:00-0400 Body mass index (BMI) [Ratio] 33.14 kg/m2 Chiaratayo Penny Other [employer] Other 11-12-2022 12:00-0400 Body weight 82.19 kg Chiara Penny Other [employer] Other 11-12-2022 12:00-0400 Diastolic blood pressure 82 mm[Hg] Chiarafreedom Penny Other [employer] Other 11-12-2022 12:00-0400 Respiratory rate 18 /min Chiara Penny Other [employer] Other 11-12-2022 12:00-0400 SaO2% (BldA) [Mass fraction] 99 % Chiara Yony Other [employer] Other 11-12-2022 12:00-0400 Systolic blood pressure 154 mm[Hg] Chiaratayo Penny Other [employer] Other Encounters Encounter Date Encounter Type Care Provider Facility Start: 12-09-2023 End: 12-09-2023 ambulatory [facility] Start: 11-17-2023 End: 11-17-2023 ambulatory [facility] Work Phone: Start: 11-17-2023 End: 11-17-2023 Patient encounter procedure [facility] Work Phone: Start: 10-21-2023 End: 10-21-2023 Orders Only Courtney Ewing LPN [facility] Comment [...] with pain Start: 10-13-2023 End: 10-13-2023 ambulatory [facility] Start: 10-13-2023 End: 10-13-2023 Office outpatient visit [address] [facility] [employer] SUPERINTENDENT-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 Work Phone: [facility] Comment on above: Essential hypertensi on (Primary Dx); Mixed hyperlipidemia; Stenosis of right carotid artery Start: 09-27-2023 Telephone encounter Leslye Ventura [facility] Comment on above: Results (09/23/23 CA S) Start: 09-24-2023 Orders Only Lisa Wilson MD [facility] [employer] Building Supervisor Sign In Start: 09-23-2023 Telephone encounter Lisa worthy MD Work Phone: [facility] Comment on above: s/p CATH Start: 09-23-2023 End: 09-23-2023 ambulatory [facility] Start: 09-23-2023 End: 09-23-2023 ambulatory [facility] Start: 09-16-2023 Telephone encounter Antoni [facility] Comment on above: Cardiac Cath Start: 09-15-2023 End: 09-16-2023 ambulatory [facility] Start: 09-14-2023 End: 09-15-2023 ambulatory [facility] Start: 08-17-2023 End: 08-17-2023 ambulatory [facility] Start: 08-12-2023 End: 08-12-2023 ambulatory Chiaratayo Penny Other [employer] Other Start: 08-12-2023 Telephone encounter Chiaratayo Penny [facility] Start: 07-08-2023 End: 07-08-2023 ambulatory Chiaratayo Penny Other [employer] Other Start: 07-08-2023 Telephone encounter Chiaratayo Penny [facility] Start: 07-07-2023 End: 07-07-2023 ambulatory Chiara Tayo Penny Facility:[facility] Start: 07-07-2023 End: 07-07-2023 ambulatory DO Chiara Tayo Penny Work Phone: [facility] Work Phone: Start: 07-07-2023 End: 07-07-2023 Patient encounter procedure DO Chiara Penny Work Phone: [facility] [place] Work Phone: Start: 06-02-2023 End: 06-02-2023 ambulatory Chiaratayo Penny Other [employer] Other Start: 06-02-2023 Office outpatient vi sit 15 minutes Chiara Penny [facility] Start: 05-20-2023 End: 05-20-2023 ambulatory Chiara Yony Other [employer] Other Start: 05-20-2023 Telephone encounter Chiara Yony [facility] Start: 05-19-2023 End: 05-19-2023 Patient encounter procedure Chiara Yony [facility] Start: 05-19-2023 Telephone encounter Chiara Yony [facility] Start: 05-19-2023 End: 05-19-2023 ambulatory DO Chiara Tayo Penny Work Phone: [employer] Other Start: 05-13-2023 End: 05-13-2023 ambulatory Chiara Penny Other [employer] Other Start: 05-13-2023 Telephone encounter Chiaratayo Penny [facility] Start: 03-10-2023 End: 03-10-2023 ambulatory Imad Asaad Other [employer] Other Start: 03-10-2023 Telephone encounter Imad Asaad [facility] Copy Clerk Start: 02-01-2023 End: 02-01-2023 ambulatory Imad Asaad Facility:[facility] Start: 02-01-2023 End: 02-01-2023 Admission to same day surgery center DO Chiara Penny Work Phone: [facility] Work Phone: Start: 02-01-2023 End: 02-01-2023 ambulatory DO Chiara Penny Work Phone: [facility] Work Phone: Start: 11-23-2022 End: 11-23-2022 ambulatory Imad Asaad Other [employer] Other Start: 11-23-2022 Telephone encounter Imad Asaad [facility] Copy Clerk Start: 11-12-2022 End: 11-12-2022 ambulatory Chiara Penny Other [employer] Other Start: 11-12-2022 Office outpatient ne w 45 minutes Chiaratayo Penny [facility] Start: 07-29-2020 End: 07-30-2020 Patient encounter procedure EDGARD FIDENCIO [facility] Start: 07-29-2020 End: 07-29-2020 Subsequent hospital visit by physician Mil CHAUDHAR[facility] [place] [facility] DOCTOR Comment on above: Controlled type 2 di abetes mellitus with complication, without long-term current use of insulin (HCC) Procedures Date Procedure Procedure Detail Performing Clinician Start: 10-21-2023 AMB REFERRAL TO VASC ULAR SURGERY Rico Naik [employer] SUPERINTENDENT-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 Work Phone: Start: 10-13-2023 Follow-up visit Follow-up YOVANI NAIK Start: 07-07-[address] DO Chiara Penny Work Phone: Start: 02-01-2023 Colonoscopy DO Chiarafreedom Penny Work Phone: Start: 07-29-2020 Urine albumin quantitative EDGARD MANUEL Start: 07-29-2020 Urine albumin quantitative Edgard Manuel Work Phone: Plan of Treatment Date Care Activity Detail Author Start: 09-22-2027 Screening for malign ant neoplasm of colon Colon cancer screen colonoscopy [place] Start: 10-21-2024 Adult BMI Screening Adult BMI Screen ing [facility] Start: 10-13-2024 Adult BMI Screening Adult BMI Screen ing [facility] Start: 10-13-2024 Tobacco Screening Tobacco Screening [facility] Start: 09-23-2024 Adult BMI Screening Adult BMI Screen ing [facility] Start: 09-15-2024 Adult BMI Screening Adult BMI Screen ing [facility] Start: 08-17-2024 Tobacco Screening Tobacco Screening [facility] Start: 12-09-2023 End: 12-09-2023 Patient encounter procedure 12/09/2023 10:00 AM EDT Office Visit [facility] [address] [place] [address] Murray Paris MD [address], [address] [address] [facility] Start: 10-21-2023 End: 10-21-2024 US Carotid arteries - bilateral Vas carotid duplex bilateral Vascular Ultrasound Routine Bilateral carotid artery stenosis Expected: 10/21/2023, Expires: 10/21/2024 [employer] Work Phone: Comment on above: Expected: 10/21/2023 , Expires: 10/21/2024 Start: 10-21-2023 End: 10-21-2024 US.doppler Lower extremity vein - bilateral Vas venous duplex lwr bilateral Vascular Ultrasound Routine Varicose veins of bilateral lower extremities with pain Expected: 10/21/2023, Expires: 10/21/2024 [facility] Comment on above: Expected: 10/21/2023 , Expires: 10/21/2024 Start: 10-20-2023 End: 10-20-2023 Patient encounter procedure 10/20/2023 1:30 PM EST Office Visit [facility] [address] [place] [address] Rico Naik, [employer] SUPERINTENDENT-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 [address] [place] [address] [facility] Start: 10-13-2023 End: 10-13-2023 Patient encounter procedure 10/13/2023 2:00 PM EST Office Visit [facility] [address] [place] [address] Rico Naik APRN-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 [address] [place] [address] [facility] Start: 09-23-2023 End: 09-23-2023 Admission to same day surgery center 09/23/2023 1:30 PM EST - 09/23/2023 2:30 PM EST Surgery [facility] - Cardiac Cath [address] [place] [address] Lisa Wilson MD [address] , [facility] [address] [place] [address] Cardiac catheterization [place] [id number] [facility] - Cardiac Cath Comment on above: Cardiac catheterizat ion [place] [id number] Start: 09-23-2023 Subsequent hospital visit by physician 09/23/2023 1:30 PM EST Hospital Encounter [facility] - Cardiac Cath [address] [place] [phone] Lisa Wilson MD [address] [facility] [address] [place], [place] [id number] Abnormal cardiac CT angiography [facility] - Cardiac Cath Comment on above: Abnormal cardiac CT angiography Start: 09-23-2023 End: 09-23-2023 Patient encounter procedure 09/23/2023 8:30 AM EST Appointment [facility] [place] - Vascular [address] [facility] [address] [place] [phone] Lisa Wilson MD [address] [facility] [address] [place], [place] [id number] [facility] [place] [facility] Start: 06-02-2023 DTaP,Tdap and Td Vac cines (3 - Td or Tdap) DTaP,Tdap and Td Vaccines (3 - Td or Tdap) [facility] Start: 06-02-2023 DTaP/Tdap/Td vaccine (2 - Td) DTaP/Tdap/Td vaccine (2 - Td) [place] Start: 04-30-2023 Influenza vaccination Influenza Vacc ine [facility] Start: 02-01-2023 [facility] Start: 07-29-2021 Diabetic foot examination Diabetic f [place]ot exam [place] Start: 07-29-2021 HbA1c (Bld) [Mass fraction] A1C test (Diabetic or Prediabetic) [place] Start: 2021 Fall Risk Screening Fall Risk Screen ing [facility] Start: 11-22-2020 End: 11-22-2020 Office Visit 11/22/2020 Office Visit Family Medicine Edgard Manuel, WATER AND SEW[employer] SYSTEMS SUPERINTENDENT - 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 [address] [address] [phone] [facility] Start: 04-30-2020 Influenza vaccination Flu vaccine (# 1) [place] Start: 10-25-2019 Creatinine measurement Creatinine mo [place]itoring [place] Start: 10-25-2019 Potassium monitoring Potassium monit [place]ing [place] Start: 09-15-2019 Lipid panel Lipid screen [place], [place] Start: 10-31-2016 Screening for malign ant neoplasm of cervix Cervical cancer screen [place] Start: 2006 Administration of varicella zoster vaccine Zoster (Shingles) Vaccine (1 of 2) [facility] Start: 2006 Screening for malign ant neoplasm of breast Breast cancer screen [place] Start: 2006 Shingles Vaccine (1 of 2) Price gles Vaccine (1 of 2) [place] Start: 1974 Adult BMI Follow Up Plan Adult BMI F ollow Up Plan [facility] Start: 1974 Diabetic foot examination Diabetic F oot Exam [facility] Start: 1968 Depression Screening Depression Scre ening [facility] Start: 1966 Diabetic retinal exam Diabetic retin al exam [place] Start: 1956 Glaucoma screening Diabetic Op hthalmology Exam [facility] Start: 1956 Medicare Annual Well ness Visit Medicare Annual Wellness Visit [facility] Start: 1956 Tobacco Counseling Tobacco Counselin g [facility] Patient Education Hemorrhoids Co frederick polyps Diverticulosis (DC) [facility] Work Phone: Immunizations Immunization Date Immunization Notes Care Provider Denice palm 05-07-2017 pneumococcal polysaccharide vaccine, 23 valent [facility] 06-02-2013 tetanus toxoid, reduced diphtheria toxoid, and acellular pertussis vaccine, adsorbed [facility] 06-26-2010 influenza virus vaccine, unspecified formulation [facility] 06-26-2010 influenza virus vaccine, whole virus Chiara Penny Other [facility] Other 11-05-1999 Td, unspecified formulation Mil Leiva [facility] [place] 11-05-1999 tetanus and diphtheria toxoids, adsorbed, preservative free, for adult use (2 Lf of tetanus toxoid and 2 Lf of diphtheria toxoid) [facility] 11-05-1999 tetanus and diphtheria toxoids, adsorbed, preservative free, for adult use (5 Lf of tetanus toxoid and 2 Lf of diphtheria toxoid) Chiara Penny Other [facility] Other NEGATED: Highlighted row has not occurred! 3 Flu Shot - Documentation Purposes Only Patient Objection Chiara Penny Other [facility] NEGATED: Highlighted row has not occurred! 3 influenza, seasonal, injectable Patient Objection Chiara Penny Other [facility] NEGATED: Highlighted row has not occurred! 3 Prevnar 20 Patient Objection Chiara Penny Other [facility] Payers Date Payer Category Payer Self-pay 2022 Unknown [id number] 2021 Medicare [id number] 2021 Medicare MEDICARE MEDICAR E PART A & B [id number] 2021-Present [phone] [address] [place] [address] [id number] 2021 Unknown [id number] 2021 Unknown [employer] [id number] 2021-Present [phone] [id number] [employer] [address] [place] [id number]. [id number] 2018 Unknown [id number]. [id number] 1956 Unknown [id number] 2.16.840.1.667830.3.579.2.175 1956 Unknown [id number] 2.16.840.1.093348.3.579.2.1286 1956 Unknown [id number] 2.16.840.1.802296.3.579.2.1286 1956 Unknown [id number] 2.16.840.1.166214.3.579.2.1286 1956 Unknown [id number] 2.16.840.1.666472.3.579.2.1286 1956 Unknown [id number] 2.16.840.1.578800.3.579.2.1286 1956 Unknown [id number] 2.16.840.1.120548.3.579.2.1286 1956 Unknown [id number] 2.16.840.1.912921.3.579.2.1286 1956 Unknown [id number] 2.16.840.1.856968.3.579.2.1286 1956 Unknown [id number] 2.16.840.1.009422.3.579.2.1286 Unknown [id number] 2.16.840.1.520554.3.579.2.531 Unknown [id number] 2.16.840.1.927311.3.579.2.531 Unknown [id number] 2.16.840.1.012063.3.579.2.531 Social History Date Type Detail Facility Start: 07-29-2020 End: 10-13-2023 Tobacco smoking status [facility] Former smoker [facility] Start: 02-01-2023 End: 11-17-2023 History of tobacco use Current [place] Start: 07-29-2020 End: 10-10-2020 Cigarettes smoked current (pack per day) - Reported [place] Start: 07-29-2020 End: 10-13-2023 Tobacco use and exposure Never used [place] Start: 07-29-2020 End: 10-13-2023 Alcohol intake Current drinker of alcohol (finding) [place] Start: 07-29-2020 History SDOH Financial 5 [place] Start: 07-29-2020 History SDOH Food Worry 1 [place] Start: 10-23-2011 Alcohol Comment occassional [place] Start: 1955 Sex Assigned At Not on file [place] Exposure to SARS-CoV -2 (event) Not sure [place] Start: 10-10-2020 End: 08-17-2023 Sex Assigned At [facility] Other Start: 1955 Sex Assigned At Female [facility] Start: 08-17-2023 Tobacco smoking status NHIS Smokes tobacco daily [facility] Housing Instability Unknown [facility] Start: 09-22-2017 Alcohol Comment socially [facility] History of tobacco use Cigarette Smoker P [facility] Medical Equipment Procedure Code Equipment Code Equipment Origin al Text Equipment Identifier Dates T2DM, use up to three times daily as needed [id number] Start: 07-11-2019 T2DM, use up to three times daily as needed [id number] Start: 07-11-2019 Goals Date Patient Goal Desired Activity /State Clinical Notes 11-12-2022 to 10-21-2023 Murray Paris MD - 10/21/2023 9:20 AM Musa Naik APRN-SHANE - 10/13/2023 2:00 PM ESTTelephone Encounter - Leslye Leon RN - 09/27/2023 12:05 PM EST Note Date & Type Note Facility 10-21-2023 History of Present illness Narrative Images from the original note were not included. [facility] [address] [facility] [address] Subjective: Patient ID: Nelia Burns is a 68 y.o. female. Chief Complaint [...] Chronic kidney disease Type 2 diabetes mellitus ([facility]) Narrowing of intervertebral disc space Osteoarthritis Essential [...] by mouth daily., Disp: , Rfl: omega 5-hqv-mfi-fish oil 1,000 mg (120 mg-180 mg) capsule, [...] of right carotid artery - [facility] [place], [place] Varicose veins of bilateral lower extremities [...] Murray Paris MD documented in this encounter [facility] 10-13-2023 History of Present illness Narrative Nelia Burns Date of visit: 10/13/2023 Date of : 1955 Age: 68 y.o. Patient Active Problem List Diagnosis Abnormal electrocardiography Atopic rhinitis Chronic kidney disease Type 2 diabetes mellitus ([facility]) Narrowing of intervertebral disc space Osteoarthritis Essential [...] Take 1 tablet by mouth daily. omega 2-jqi-tce-fish oil 1,000 mg (120 mg-180 mg) capsule [...] sooner appt History of Present Illness Nelia Burns is a 68 y.o. female with a [...] stenosis in the RCA with an FFR HOTEL CLERK of 0.80. Total calcium Score 2039.9. Underwent [...] SURGERY Cardiac catheterization CORS LV GRAM PRESS [id number] N/A 09/23/2023 Performed by Lisa Wilson MD at [facility] C[facility] C[facility]S SECTION x2 COLONOSCOPY AND POLYPECTOMY N/A 09/22/2017 Performed by Edy Luis MD at [facility] ENDOSCOPY TONSILLECTOMY ADENOIDECTOMY Family History Problem Relation [...] 3. Stenosis of right carotid artery - [facility] [place], [place]; Future 1. ASCVD without angina - [...] TODAYS ORDERS Orders Placed This Encounter Procedures [facility] [place], [place] Plan: Stable and doing well. Continue current [...] PENNY MD Referring Physician: Chiara Penny MD [address] [place] [address] BETINA Zhong 10/13/23 1528 documented in this encounter [facility] 09-27-2023 Miscellaneous Notes Images from the original [...] on pt VM. documented in this encounter [facility] 09-27-2023 Telephone encounter Note Images from the original note were not included. Rico Naik, OLIMPIA-SHANE 09/27/2023 11:53 AM EST Back to Top Noted. Nothing urgent. Can be discussed at follow up appointment. Leslye Leon RN 09/27/2023 11:12 AM EST MES Carotid was done same day prior to cath. Has 10/20/23 post cath appt Result will be called to pt. Please mil viewed. Thanks. [facility] 09-27-2023 Telephone encounter Note Msg left on pt VM. [facility] 09-23-2023 Miscellaneous Notes ----- Message from Lisa Wilson MD sent at 09/23/2023 4:51 PM EST ----- This patient underwent cardiac catheterization at [facility] today. She should have a virtual follow-up [...] a sooner appt. documented in this encounter [facility] 09-23-2023 Telephone encounter Note ----- Message from Lisa Wilson MD sent at 09/23/2023 4:51 PM EST ----- This patient underwent cardiac catheterization at [facility] today. She should have a virtual follow-up with the interventional AP P and then follow-up with me in the office in 6 months. [facility] Telephone encounter Note Patient called in to office to schedule appointments. She stated nothing was mentioned to her about a virtual visit and wanted to schedule her f/u in office. She is on the wait list for a sooner appt. Service [facility] 09-16-2023 Miscellaneous Notes Received order from Leslye at the office. Patient scheduled for cath on 09/23/23 at 130pm at [facility] with [facility]. Notified Leslye. documented in this encounter [email or web address] Telephone encounter Note Received order from Leslye at the office. Patient scheduled for cath on 09/23/23 at 130pm at [facility] with [facility]. Notified Leslye. Service [facility] 07-08-2023 Evaluation note Encounter Date Diagnosis Assessment Notes Jun, Coronary artery disease (ICD-10 - I25.10) [facility] Other 10-04-2023 Evaluation note* Encounter Date Diagnosis Assessment Notes Treatment Notes Treatment Clinical Notes May, Hyperlipidemia (ICD-10 - E78.5) Resistant to statin medication due to concern for potential side effects. Recommend cardiac calcium score for risk stratification. Discussed recommendation for statin in setting of DM to reduce mcc risk of CVD. [facility] Other 09-20-2023 Evaluation note* Encounter Date Diagnosis [...] Hip osteoarthri tis exercises material was printed [facility] Other 09-20-2023 Evaluation note* Encounter Date Diagnosis Assessment Notes Treatment Notes Treatment Clinical Notes Apr, Breast cancer screening (ICD-10 - Z12.39) Apr, Post-menopausal (ICD-10 - Z78.0) [facility]* Encounter Date Diagnosis Assessment [...] done this past fall from prior PCP [facility] Other Evaluation noteNo InformationNort Needcheck Other Evaluation noteNo assessment information available [facility] Work Phone: Evaluation note* Diagnosis Essential hypertension- Primary Unspecified essential hypertension Mixed hyperlipidemia Stenosis of right carotid artery Occlusion and stenosis of carotid artery without mention of cerebral infarction [facility] Diagnosis Carotid stenosis, asymptomatic, bilateral- Primary Stenosis of right carotid artery Occlusion and stenosis of carotid artery without mention of cerebral infarction Varicose veins of bilateral lower extremities with pain [facility] Diagnosis Carotid stenosis, asymptomatic, bilateral- Primary Bilateral carotid artery stenosis Occlusion and stenosis of carotid artery without mention of cerebral infarction Varicose veins of bilateral lower extremities with pain documented in this encounter [facility] and physical note Author Vaibhav Nelson [facility] February 01, 2023 9:31am Note Date/Time February 01, 2023 9:31a m [facility] [address] [place] [address] Gastroenterology H&P Signed Patient: Nelia Burns MR#: [id number] : 1955 Acct:[id number] Age/Sex: 67 / F Adm Date: 3 Loc: Room: Type: [facility] Attending Dr: Vaibhav Nelson MD Copies to: DO Vaibahv Lopez MD~ Date of Service: 02/01/2023 HISTORY & [...] <Electronically signed by Vaibhav Nelson MD> 02/01/23930 [facility] Work Phone: History general Narrative - Reported* Type Description Date Medical History HTN Medical History DM type 2 Surgical History appendectomy Surgical History tonsilectomy Surgical History adenoidectomy Surgical History PHILIP ankle sx Surgical History x 2 Surgical History back sx in L5, S1 Hospitalization History see above Hospitalization History child x 2 Hospitalization History HTN [facility] Other Hospital Discharge instructions Additional Instructions DISCHARGE [...] pathology -Follow up with PCP. -Office number [phone]. [facility] Work Phone: InstructionsNot on filedocumented in this encounter [email or web address] Laser ViewInstructionsNot on filedocumented in this encounter [facility] EdgeInstructionsNot on filedocumented in this encounter [facility] EdgeInstructionsNot on filedocumented in this encounter [facility] EdgeInstructionsNot on filedocumented in this encounter [facility] EdgeReason for referral (narrative)* Consultation (Routine) - Pending Review Specialty Diagnoses / Procedures Referred By Indigo rodriguez Referred To Contact Vascular Surgery Diagnoses Stenosis of right carotid artery Rico Naik APRN-CNP [address] [place] [address] [facility] [address] [place] [address] Referral ID Status Reason Start Date Expiration Date Visits Requested Visits Authorized [id number] Pending Review Specialty Services Required 10/13/2023 10/12/2024 1 1 [employer] [facility] Assessments Diagnosis Controlled type 2 diabetes mellitus with complication, without long-term current use of insulin (HCC) Advance Directives No Advanced Directives Records FoundDocuments on File Type Date Recorded 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 ACP-Advance Directive ACP-Power of Benefits Specialist Recruiter Advance Directive Response Recorded Date/ Time Advance Directives No February 01 3 8:11am Advance Directive Response Recorded Date/ Time Advance Directives No February 01 3 7:11am Summary Purpose Family History No Family History Records Found Relationship Condition Age at Onset Recorded Date/T yecenia father Dementia Unknown Heart disease Unknown Not Specified Dementia Unknown Relationship Condition Age at Onset Recorded Date/T yecenia father Dementia Unknown Heart disease Unknown Not Specified Dementia Unknown brother Hypertension Unknown father Unknown Diabetes mellitus Unknown Family history of mental disorder Unknown family member Unknown Not Specified Heart disease Unknown Unknown Reason for Referral Reason * Waiting for appt need for screening colonoscopy, prefer Husam if available Diagnosis 1 History of colon katherine yps (Z86.010) Referral Organization [facility] Family Medicin e Gala Referring Provider First Name Chiara Referring Provider Last Name Penny Referring Provider Specialty Family Medi cine Referred Organization [facility] Gastroenterolo gy Referred Provider Boy Ho Referred Address [address] [facility],[address],[address] Referred Provider Specialty Gastroentero logy Referral Priority Routine General Notes Triny Berry 01:36:07 PM > referral received and sent p2p successful per log Specialty Diagnoses / Procedures Referred By Indigo rodriguez Referred To Contact Diagnoses Varicose veins of bilateral lower extremities with pain Procedures Vas venous duplex lwr bilateral Murray Paris MD [address], [address] [address] Referral ID Status Reason Start Date Expiration Date V isits Requested Visits Authorized [id number] Pending Review 10/21/2023 10/20/2024 1 1 Specialty Diagnoses / Procedures Referred By Indigo rodriguez Referred To Contact Diagnoses Bilateral carotid artery stenosis Procedures Vas carotid duplex bilateral Murray Paris MD [address], [address] [address] Referral ID Status Reason Start Date Expiration Date V isits Requested Visits Authorized [id number] Pending Review 10/21/2023 10/20/2024 1 1 Chief Complaint and Reason for Visit Chief Complaint Hx of Colon Polyps Chief Complaint E11.9 E78.5 Chief Complaint 6 month follow up Additional Source Comments INFORMATION SOURCE (unrecogn ized section and content) DATE CREATED AUTHOR 07/31/2020 [facility] DATE CREATED AUTHOR AUTHOR'S ORGANIZ ATION 07/08/2023 [facility] DATE CREATED AUTHOR AUTHOR'S ORGANIZ ATION 09/26/2023 [facility] DATE CREATED AUTHOR AUTHOR'S ORGANIZ ATION 12/10/2023 [facility] REASON FOR VISIT (unrecogniz ed [...] Diagnoses Stenosis of right carotid artery Rico Naik, [employer] SYSTEMS SUPERINTENDENT-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 [address] [place] [address] Murray Paris MD [address], [address] [address] Referral ID Status Reason Start Date Expiration Date Visits Requested Visits Authorized [id number] Pending Review Specialty Services Required 10/13/2023 10/12/2024 [...] DO Primary Care Provider, Rosa ruiz Active Clearance Rep Relationship Specialty Start Date End Date Peng Harrell DO PCP - General Family Medicine 03/09/17 Clearance Rep Relationship Specialty Start Date End Date Chiara Penny MD [address] [place] [address] PCP - General Family Medicine 09/23/23 Clearance Rep Relationship Specialty Start Date End Date Chiara Penny MD [address] [place] [address] PCP - General Family Medicine 09/23/23 Clearance Rep Relationship Specialty Start Date End Date Chiara Penny MD [address] [place] [address] PCP - General Family Medicine 09/23/23 Clearance Rep Relationship Specialty Start Date End Date Chiara Penny MD [address] [place] [address] PCP - General Family Medicine 09/23/23 Clearance Rep Relationship Specialty Start Date End Date Chiara Penny MD [address] [place] [address] PCP - General Family Medicine 09/23/23 Team Status: Inactive Member Role Status Dates Chiara Penny , Primary Care Provide r, Attending Provider Active Start: November 17, 2023 End: November 17, 2023 Goals (unrecognized section and content) Goals may [...] BE BASED ON THE PRIMARY CLINICAL RECORDS. [facility] [employer] [facility]. provides no warranty or guarantee of the accuracy or completeness of information in this document.
--- NOTE | 2024-01-19 11:01 | PM.PRESUREVA ---
History of Present Illness History of Present Illness Chief complaint: varicose veins rosemary lower ext with pain Narrative: Patient presents for preadmission testing. The patient states she has varicose veins with aching pain in bilateral legs. She denies numbness, tingling, weakness, injury, or any other complaints. Review of Systems ROS Narrative REVIEW OF SYSTEMS: Negative except as stated in HPI, ten or more systems reviewed. Constitutional: No fever, chills, weakness ENT: No sore throat or epistaxis Cardiovascular: No edema, chest pain, palpitations, or activity intolerance Respiratory: No shortness of breath, cough, or wheezing Musculoskeletal: Chronic back and joint pain Gastrointestinal: No abdominal pain, constipation, diarrhea, or vomiting Genitourinary: No dysuria or hematuria Neurological: No numbness, tingling, weakness, or headache Psychiatric: No mood changes PFSH [facility] Medical History (Updated 01/19/24 @ 10:35 by Annette Coronel NP) Chronic kidney disease ?N18.9 - Chronic kidney disease, unspecified (ICD-10) Periodontal disease ?K05.6 - Periodontal disease, unspecified (ICD-10) Arthritis ?M19.90 - Unspecified osteoarthritis, unspecified site (ICD-10) Back pain ?M54.9 - Dorsalgia, unspecified (ICD-10) Anemia ?D64.9 - Anemia, unspecified (ICD-10) Seasonal allergies ?J30.2 - Other seasonal allergic rhinitis (ICD-10) Carotid bruit ?R09.89 - Other specified symptoms and signs involving the circulatory and respiratory systems (ICD-10) Pain due to varicose veins of both lower extremities ?I83.813 - Varicose veins of bilateral lower extremities with pain (ICD-10) Hypertension ?I10 - Essential (primary) hypertension (ICD-10) Colon polyp ?K63.5 - Polyp of colon (ICD-10) Hyperlipidemia ?E78.5 - Hyperlipidemia, unspecified (ICD-10) Diabetes ?E11.9 - Type 2 diabetes mellitus without complications (ICD-10) Carotid stenosis ?I65.29 - Occlusion and stenosis of unspecified carotid artery (ICD-10) CAD (coronary artery disease) ?I25.10 - Atherosclerotic heart disease of [place] coronary artery without angina pectoris (ICD-10) Varicose veins of both lower extremities ?I83.93 - Asymptomatic varicose veins of bilateral lower extremities (ICD-10) Surgical History (Updated 01/19/24 @ 10:34 by Annette Coronel NP) History of section ?Z98.891 - History of uterine scar from previous surgery (ICD-10) History of section ?Z98.891 - History of uterine scar from previous surgery (ICD-10) History of esophagogastroduodenoscopy (EGD) ?Z98.890 - Other specified postprocedural states (ICD-10) History of colonoscopy ?Z98.890 - Other specified postprocedural states (ICD-10) History of ankle surgery ?Z98.890 - Other specified postprocedural states (ICD-10) H/O Spinal surgery ?Z98.890 - Other specified postprocedural states (ICD-10) History of appendectomy ?Z90.49 - Acquired absence of other specified parts of digestive tract (ICD-10) Hx of tonsillectomy ?Z90.89 - Acquired absence of other organs (ICD-10) H/O adenoidectomy ?Z90.89 - Acquired absence of other organs (ICD-10) History of cardiac catheterization ?Z98.890 - Other specified postprocedural states (ICD-10) Family History (Updated 01/19/24 @ 10:34 by Annette Coronel NP) Other Dementia Family history of diabetes mellitus Family history of hypertension Family history of prostate cancer Heart disease Social History (Updated 01/19/24 @ 10:26 by Annette Coronel NP) Within the past year, how often did you have a drink containing alcohol: 2-4 times a month Smoking status: Former smoker Do you use any of these nicotine containing products: vaping products Non-prescribed substance use: denies use Highest level of school completed/degree received: high school graduate Meds Home Medications and Allergies Home Medications ?Medication ?Instructions ?Recorded ?Confirmed ?Type aspirin 81 mg tablet,delayed 81 mg PO DAILY 01/19/24 01/19/24 History release (Adult Aspirin Regimen) cetirizine 10 mg tablet (Allergy 10 mg PO DAILY PRN allergy symptoms 01/19/24 01/19/24 History Relief (cetirizine)) coenzyme Q10 100 mg capsule 100 mg PO DAILY 01/19/24 01/19/24 History (CoQ-10) losartan 50 mg-hydrochlorothiazide 1 tab PO DAILY 01/19/24 01/19/24 History 12.5 mg tablet metformin 500 mg tablet 500 mg PO DAILY 01/19/24 01/19/24 History metoprolol succinate 50 mg 50 mg PO DAILY 01/19/24 01/19/24 History tablet,extended release 24 hr rosuvastatin 10 mg tablet 10 mg PO DAILY 01/19/24 01/19/24 History Allergies Allergy/AdvReac Type Severity Reaction Status Date / Time No Known Drug Allergies Allergy Verified 01/19/24 10:24 Exam Narrative Exam Narrative: Constitutional: Awake, alert, comfortable, well-appearing, nontoxic, interactive, vital signs as charted Head: Normocephalic, atraumatic Neck: Supple, normal appearance, normal range of motion, no meningeal signs, no lymphadenopathy Respiratory: No respiratory distress, breath sounds clear Cardiovascular: Regular rate and rhythm, strong and regular heart tones Musculoskeletal: Normal gait, no swelling or edema Skin: No rashes or induration, no lesions, varicose veins bilateral lower extremities, only visible skin inspected Neuro: No neurological deficits, normal sensation Psychiatric: Oriented ?3, normal affect Assessment and Plan Assessment and Plan (1) Varicose veins of both lower extremities: (2) Pain due to varicose veins of both lower extremities: Plan Left GSV RFA With ultrasound-guided sclerotherapy scheduled with Dr. Paris January 27, 2024.
[2024-01-19 11:03] LABS: Anion Gap 12.3; BUN Creatinine Ratio 24.1; Calcium 9.8 mg/dL (8.5-10.1); Carbon Dioxide 26.7 mmol/L (21.0-32.0); Chloride 101 mmol/L (98-107); Estimated GFR (African America 47 (>=60); Estimated GFR (Non-African Ame 38 (>=60); Glucose 115 mg/dL (74-106); Sodium 136 mmol/L (136-145)
[2024-01-19 11:33] LABS: Basophils Absolute Auto 0.1 10^3/uL (0.0-0.1); Basophils Percent Auto 0.7 % (0.2-2.0); Eosinophils Absolute Auto 0.3 10^3/uL (0.0-0.7); Eosinophils Percent Auto 3.1 % (0.9-7.0); Hematocrit 36.5 % (36.0-48.0); Hemoglobin 11.6 g/dL (12.0-16.0); Immature Granulocytes Abs Auto 0.03 10^3/uL (0.00-0.03); Immature Granulocytes Pct Auto 0.4 % (0.0-0.5); Lymphocytes Absolute Auto 2.5 10^3/uL (1.2-3.8); Lymphocytes Percent Auto 29.2 % (20.5-60.0); Mean Corpuscular HGB Conc 31.8 g/dL (29.9-35.2); Mean Corpuscular Hemoglobin 29.9 pg (26.7-34.0); Mean Corpuscular Volume 94.1 fL (81.0-99.0); Mean Platelet Volume 10.5 fL (9.5-13.5); Monocytes Absolute Auto 0.7 10^3/uL (0.3-0.8); Monocytes Percent Auto 8.2 % (1.7-12.0); Neutrophils Absolute Auto 4.9 10^3/uL (1.4-6.5); Neutrophils Percent Auto 58.4 % (43.0-75.0); Platelet Count 327 10^3/uL (150-450); Red Blood Count 3.88 10^6/uL (4.20-5.40); Red Cell Distribution Width 13.2 % (11.0-15.0); White Blood Count 8.4 10^3/uL (4.0-11.0)
[2024-01-19 11:39] LABS: INR 1.01; Partial Thromboplastin Time 32.1 sec (22.3-36.2); Prothrombin Time 10.7 sec (9.0-11.6)
== END 2024-01-19 10:01 | disposition home or self-care (01) ==
PROVIDERS: PCP Student in an Organized Health Care Education/Training Program; Visit Provider Student in an Organized Health Care Education/Training Program
DX: Z01.810 Encounter for preprocedural cardiovascular examination (principal); Z01.818 Encounter for other preprocedural examination; I83.813 Varicose veins of bilateral lower extremities with pain
CPT/HCPCS: 36415; 80048; 85025; 85610; 85730; G0463

== ENCOUNTER 2024-01-27 10:57 | Day surgery (SDC) | payer MEDICARE, OTHER, SELFPAY ==
[2024-01-19 10:48] VITALS: BP 138/70; PULSE 60; TEMP 36.4; O2SAT 95; BMI 33.3
[2024-01-27 11:01] VITALS: BP 161/72; PULSE 74; TEMP 36.1; O2SAT 98; BMI 33.7
[2024-01-27] MEDS: LACTATED RINGER'S SOLUTION 1,000 ML 50 ML IV ×2 (11:23→13:05)
[2024-01-27 11:28] LABS: Glucometer 119 mg/dL (74-106)
[2024-01-27] MEDS: LIDOCAINE HCL 1% 100 MG/10 ML MDV INJ (12:39)
[2024-01-27] MEDS: 0.9 % SODIUM CHLORIDE 500 ML, LIDOCAINE HCL 20 ML, SODIUM BICARBONATE 10 MEQ INJ (12:42)
[2024-01-27] MEDS: 0.9 % SODIUM CHLORIDE 10 ML INJ (12:59)
[2024-01-27] MEDS: SODIUM TETRADECYL SULFATE 3 % 60 MG/2 ML VIAL INJ (12:59)
[2024-01-27 13:12] VITALS: BP 148/60; PULSE 75; O2SAT 95
--- NOTE | 2024-01-27 13:12 | W.PM.OPNOTE ---
Surgery Operative Note Operative Note Procedure Date: 01/27/24 Time Out Performed: yes Pre-op Diagnosis: Bilateral lower Extremity varicose veins with pain Procedures performed: 1. Left great saphenous vein radiofrequency ablation 2. Bilateral lower extremity injection sclerotherapy of multiple varicose veins Anesthesia: MAC Primary Surgeon: Murray Paris Complications: None Estimated blood loss (mL): 5 Findings: Unremarkable operative course. Radiofrequency ablation of the left great saphenous vein above the knee. Bilateral lower extremity varicose veins were injected using diluted sodium sotradecol 0.6% Indications for Procedures: Is a very pleasant 68-year-old lady with bilateral lower extremity varicose veins and pain. She tried compression stockings leg elevation and exercise. She continued to have significant symptoms. She has significant left GSV ablation. She is here for injection sclerotherapy and left GSV ablation. Detailed description of Procedure: The patient was taken back to the operating room placed in the supine position and appropriate cardiopulmonary monitors were set. Monitored anesthesia care was induced. Both legs were prepped and draped in usual sterile surgical fashion. After timeout a safety pause under ultrasound guidance the GSV was accessed at the level of the knee. 6 [place] sheath was placed. Radiofrequency ablation catheter was placed about 3 cm from the saphenofemoral junction. Tumescent was injected all through around the vein. 35 cm length was treated successfully. 2 rounds in the proximal 2 segments was used. Completion ultrasound shows compressibility of the common femoral vein with no issues. After that sodium citrate ducal was diluted to 0.6% and multiple spider veins and reticular veins and varicose veins were injected using a 30-gauge needle. At the end compression therapy was placed in the leg the patient tolerated the procedure very well.
[2024-01-27 13:27] VITALS: BP 158/65; PULSE 68; O2SAT 98
[2024-01-27 13:42] VITALS: BP 137/62; PULSE 65; O2SAT 100
== END 2024-01-27 14:00 | disposition home or self-care (01) ==
PROVIDERS: PCP Family Medicine; Visit Provider Student in an Organized Health Care Education/Training Program
PROC: (CPT 36470; principal; 2024-01-27 12:00)
DX: I83.813 Varicose veins of bilateral lower extremities with pain (principal); Z79.84 Long term (current) use of oral hypoglycemic drugs; E78.5 Hyperlipidemia, unspecified; I10 Essential (primary) hypertension; I65.29 Occlusion and stenosis of unspecified carotid artery; E11.9 Type 2 diabetes mellitus without complications; F17.290 Nicotine dependence, other tobacco product, uncomplicated; I25.10 Atherosclerotic heart disease of native coronary artery without angina pectoris
CPT/HCPCS: 36470; 36475; 36415; 82948; J1094; J2704

== ENCOUNTER 2024-10-30 13:57 | Outpatient (OUT) | payer MEDICARE, OTHER, SELFPAY ==
[2024-10-30 14:51] LABS: Chol HDL Ratio 3.2; Cholesterol 133 mg/dL (<=200); HDL Cholesterol 41 mg/dL (40-60); LDL Cholesterol Calculated 63.2 mg/dL; Triglycerides 144 mg/dL (<=150); VLDL CHOLESTEROL 28.8 mg/dL
== END 2024-10-30 13:58 | disposition home or self-care (01) ==
LOC: LAB 13:59
PROVIDERS: PCP Family Medicine
DX: E78.2 Mixed hyperlipidemia (principal)
CPT/HCPCS: 36415; 80061

== ENCOUNTER 2025-02-19 11:37 | Outpatient (OUT) | payer MEDICARE, OTHER, SELFPAY ==
--- OUTSIDE RECORDS SUMMARY | 2025-02-19 11:40 | XMS_ITS | Encounter Summary ---
Author Organization [facility] Address [address] [facility] [place] [address] Care Team Providers Care Patent Leather Sorter Name Role Phone Chiara Penny DO Primary Care Provider [phone] Reason for Visit * Reason Onset Date Comments Medication Refill 09/01/2016 Encounter Details Date Type Department Care Team (Late st Contact Info) Description 09/01/2016 Refill [facility] [address] [place] [address] Dez Harrell DO Medication Refill Social History Tobacco Use Types Packs/Day Years Used Date Smoking Tobacco: Former Cigarettes Q uit: 03/22/2008 Smokeless Tobacco: Never Alcohol Use Standard Drinks/Week Comments Yes 0 (1 standard drink = 0.6 oz pur e alcohol) occassional Comments No Sex and Gender Information Value Date Recorded Sex Assigned at Not on file Legal Sex Female 9:13 PM EST Gender Identity Not on file Sexual Orientation Not on file documented as of this encounter Plan of Treatment Not on file documented as of this encounter Visit Diagnoses Not on filedocumented in this encounter Care Teams Patent Leather Sorter Relationship Specialty [place] [address] [place] [address] PCP - General Family Medicine 12/09/22 documented as of this encounter
--- OUTSIDE RECORDS SUMMARY | 2025-02-19 11:40 | XMS_ITS | Clinical Summary ---
Author Organization [facility] Address [address] [place] [address] Care Team Providers Care Class C Truck Driver Name Role Phone Chiara Penny DO Primary Care Provider [phone] Allergies No known active allergies Medications Multiple Vitamin (MULTI-VITAMIN PO) Take by mouth. Active aspirin 81 MG EC tablet Take 81 mg by mouth daily. Active Coenzyme Q10 (CO Q 10) 100 MG CAPS Take 300 mg by mouth Active blood glucose test strips ([employer] BLOOD GLUCOSE TEST) stripIndications: Controlled type 2 diabetes mellitus with complication, without long-term current use of insulin (HCC) T2DM, use up to three times daily as needed 200 strip 5 9 Active Lancets MISCIndications:C ontrolled type 2 diabetes mellitus with complication, without long-term current use of insulin (HCC) T2DM, use up to three times daily as needed 200 each 5 9 Active rosuvastatin (CRESTOR) 20 MG tabletIndications :Hyperlipemia, mixed TAKE 1 TABLET BY MOUTH AT BEDTIME 90 tablet 1 2 Active metoprolol succinate (TOPROL XL) 50 MG extended release tabletIndications :Essential hypertension TAKE 1 TABLET BY MOUTH EVERY DAY 90 tablet 1 2 Active metFORMIN (GLUCOPHAGE) 500 MG tabletIndications :Controlled type 2 diabetes mellitus with complication, without long-term current use of insulin (HCC) TAKE 1 TABLET BY MOUTH EVERY DAY 90 tablet 2 Active losartan-hydroCHL OROthiazide (HYZAAR) 50-12.5 MG per tabletIndications :Essential hypertension TAKE 1 TABLET BY MOUTH EVERY DAY 90 tablet 2 Active Active Problems Patient Care Coordination No te Formatting of this note migh t be different from the original. Dr. Wilson - cardio Dr. Luis - GI Problem Noted Date Diagnosed Date Stage 3a chronic kidney disease 02/09/2022 Hematuria, seen by urology, cystoscopy neg 07/11 Chronic midline low back pain with bilateral sci atica 06/18/2017 Controlled type 2 diabetes m ellitus with complication, without long-term current use of insulin 10/22/2016 Essential hypertension 06/19/2016 Allergic rhinitis 12/11/2011 Hyperlipemia, mixed GERD (gastroesophageal reflux disease) Chronic kidney disease Resolved Problems Problem Noted Date Diagnosed Date Resolved Date Multiple adenomatous polyps 09/28/2017 09/30/2018 Microalbuminuria 10/22/2016 09/30/2018 Hair loss 06/20/2016 09/30/2018 Abnormal EKG 06/03/2013 09/30/2018 Right wrist pain 07/24/2012 05/16/2018 Pain of right thumb 07/24/2012 09/30/19 19 Lateral epicondylitis (tennis elbow) 10/23/2011 05/16/2018 DDD (degenerative disc disease) 09/30/2018 DJD (degenerative joint disease) 09/30/2018 Immunizations Immunization Administration Dates Next Due Influenza Virus Vaccine 06/26/2010 Pneumococcal, PPSV23, PNEUMO VAX 23, (age 2y+), SC/IM, 0.5mL 05/07/2017 TDaP, ADACEL (age 10y-64y), BOOSTRIX (age 10y+), IM, 0.5mL 06/02/2013 Td, unspecified formulation 11/05/1999 Family History Medical History Relation Name Comments Diabetes Father Heart Disease Father S/P bypass High Cholesterol Father Dementia Mother High Cholesterol Mother Stroke Mother small CVA Relation Name Status Comments Brother Alive Father Alive Mother (Age 76) [place], CAD, V entricular wall rupture? Son 1 Alive Son 2 Alive Social History Tobacco Use Types Packs/Day Years Used Date Smoking Tobacco: Former Cigarettes 0.5 40 0 03/22/1968 - 03/22/2008 Smokeless Tobacco: Never Alcohol Use Standard Drinks/Week Comments Yes 0 (1 standard drink = 0.6 oz pur e alcohol) occassional Overall Financial Resource Strain (CARDIA) Answe r Date Recorded How hard is it for you to pa y for the very basics like food, housing, medical care, and heating? Not very hard 02/09/2022 PHQ-2 Answer Date Recorded PHQ-9 Total Score 0 02/09/2022 Hunger Vital Sign Answer Date Recorded Within the past 12 months, y ou worried that your food would run out before you got the money to buy more. Never true 02/10/20 22 Within the past 12 months, t he food you bought just didn't last and you didn't have money to get more. Never true 02/09/2022 Comments No Sex and Gender Information Value Date Recorded Sex Assigned at Not on file Legal Sex Female 9:13 PM EST Gender Identity Not on file Sexual Orientation Not on file Last Filed Vital Signs Vital Sign Reading Time Taken Comments Blood Pressure 138/82 02/09/2022 8:53 AM EDT pt just took bp meds 1 hour ago Pulse 73 02/09/2022 8:53 AM EDT Temperature 36.6 C (97.9 F) 02/09/2022 8:53 AM EDT Respiratory Rate 16 07/29/2020 2:09 PM EST Oxygen Saturation 97% 02/09/2022 8:5 3 AM EDT Inhaled Oxygen Concentration - - Weight 85.3 kg (188 lb) 02/09/2022 8:53 AM EDT Height 156.2 cm (5' 1.5 ) 02/09/2022 8: 53 AM EDT Body Mass Index 34.95 02/09/2022 8:53 AM EDT Plan of Treatment Health Maintenance Due Date Last Done Comments Depression Screen 1968 Diabetic retinal exam 1974 Breast cancer screen 1996 FIT/FOBT: Average risk 2001 Fecal-DNA (Cologuard): Average risk 2001 Sigmoidoscopy/CT colonography 2001 Shingles vaccine (1 of 2) 2006 DEXA (modify frequency per FRAX score) 2011 Pneumococcal 50+ years Vaccine (2 of 2 - PCV) 05/07/2018 05/07/2017 Diabetic Alb to Cr ratio (uACR) test 07/29/2021 07/29/2020 Diabetic foot exam 02/09/2023 02/09/2022, 1 09/28/2019, 05/16/2018, Additional history exists A1C test (Diabetic or Prediabetic) 05/13/2023 05/13/2022, 05/23/2021, 07/29/2020, Additional history exists GFR test (Diabetes, CKD 3-4, OR last GFR 15-59) 05/13/2023 05/13/2022, 09/21/2020, 02/25/2018 Lipids 05/13/2023 05/13/2022, 08/31, 09/15/2018, Additional history exists DTaP/Tdap/Td vaccine (2 - Td or Tdap) 06/02/2023 06/02/2013, 11/05/1999 Annual Wellness Visit (Medicare) 07/26/2023 COVID-19 Vaccine ( season) 2024 Flu vaccine (Season Ended) 2025 06/26/2010 Colonoscopy 09/22/2027 09/22/2017 Colorectal Cancer Screen 09/22/2027 Respiratory Syncytial Virus (RSV) or age 60 yrs+ (1 - 1-dose 75+ series) 2031 Cervical cancer screen Discontinued Pap smear Discontinued 10/31/2013 HIV screen Discontinued 07/09/2016, 07/09/2016 Hepatitis C screen Completed 07/09/2016, 07/09/2016 Pneumococcal 0-49 years Vaccine Discontinued 05/07/2017 HPV (without or with Pap) Discontinued Hepatitis A vaccine Aged Out No longe r eligible based on patient's age to complete this topic Hepatitis B vaccine Aged Out No longe r eligible based on patient's age to complete this topic Hib vaccine Aged Out No longer eligi ble based on patient's age to complete this topic Meningococcal (ACWY) vaccine Aged Out No longer eligible based on patient's age to complete this topic Meningococcal B vaccine Aged Out No l onger eligible based on patient's age to complete this topic Polio vaccine Aged Out No longer elig ible based on patient's age to complete this topic Procedures Procedure Name Priority Date/Time Associated Diagnosis Comments COMPREHENSIVE METABOLIC PANEL Routine 05/13/2022 Controlled type 2 diabetes mellitus with complication, without long-term current use of insulin (HCC) Stage 3a chronic kidney disease (HCC) LIPID PANEL Routine 05/13/2022 Hyperlipemia, mixed HEMOGLOBIN A1C Routine 05/13/2022 Controlled type 2 diabetes mellitus with complication, without long-term current use of insulin (HCC) MICROALBUMIN, UR Routine 07/29/2020 6:20 AM EST Controlled type 2 diabetes mellitus with complication, without long-term current use of insulin (HCC) HM COLONOSCOPY Routine 09/22/2017 HIV SCREEN Routine 07/09/2016 Well woman exam without gynecological exam Screening for HIV (human immunodeficiency virus) HEPATITIS C ANTIBODY Routine 07/09/2016 Well woman exam without gynecological exam Need for hepatitis C screening test PAP SMEAR Routine 10/31/2013 from Last 3 Months or Most Recently Relevant to Health Maintenance Results * (ABNORMAL) Hemoglobin A1C (05/13/2022) Pathologist [facility] Hemoglobin A1C 6.8 % Estimated Avg Glucose 148 BLOOD SPECIMEN / Unknown 05/13/2022 Rosetta Manuel APRN - QA AUTOMATION ENGINEER CHEMISTRY ORDERABLES Edited R esult - Final * (ABNORMAL) Lipid Panel (05/13/2022) Pathologist [facility] Cholesterol, Total 168 mg/dL HDL 35 35 - 70 mg/dL LDL Calculated 91 0 - 160 mg/dL Triglycerides 210 mg/dL Chol/HDL Ratio 4.8 VLDL 42 mg/dL Cholesterol non HDL BLOOD SPECIMEN / Unknown 05/13/2022 us Rosetta Manuel APRN - QA AUTOMATION ENGINEER CHEMISTRY ORDERABLES Final Re sult * (ABNORMAL) Comprehensive Metabolic Panel (05/13/2022) Pathologist [facility] Sodium 138 mmol/L Chloride 100 mmol/L Potassium 4.1 mmol/L BUN 24 mg/dL Creatinine 1.14 Glucose 111 mg/dL AST 15 U/L ALT 16 U/L Calcium 9.8 mg/dL Total Protein 7.6 CO2 28 mmol/L Albumin 4.4 Alkaline Phosphatase 52 U/L Total Bilirubin 0.4 0.1 - 1.4 mg/dL Est, Glom Filt Rate 53 Anion Gap 10 mmol/L BLOOD SPECIMEN / Unknown 05/13/2022 Rosetta Manuel AIRCRAFT LAUNCH AND RECOVERY TECHNICIAN - QA AUTOMATION ENGINEER CHEMISTRY ORDERABLES Final Re sult * (ABNORMAL) Microalbumin, Ur (07/29/2020 6:20 AM EST) Albumin Urine 1,230(H) <21 mg/L 07/29/2020 6:20 AM EST [facility] Creatinine, Ur 122.4 28.0 - 217.0 mg/dL 07/29/2020 6:20 AM EST [facility] Microalb/Senior Ui Software Engineer. Ratio 1,005(H) <25 mcg/mg creat 07/29/2020 6:20 AM EST [facility] Urine 07/29/2020 6:20 AM EST 07/30/2020 6:20 AM EST Rosetta Manuel AIRCRAFT LAUNCH AND RECOVERY TECHNICIAN - QA AUTOMATION ENGINEER URINE ORDERABLES Final Result [facility] [address] [place] [address], [facility] [phone] * HM COLONOSCOPY (09/22/2017) Historical Provider HEALTH MAINTENANCE Final Result * Hepatitis C Antibody (07/09/2016) Antibody Screen BLOOD SPECIMEN / Unknown 07/09/2016 Narrative Leanna Lewis - 07/09/2016 See results in t3 free Dez Harrell DO IMMUNOLOGY ORDERABLES Final Result * HIV Screen (07/09/2016) BLOOD SPECIMEN / Unknown 07/09/2016 Narrative Leanna Lewis - 07/09/2016 See results in t3 free us Dez Harrell DO IMMUNOLOGY ORDERABLES Final Result * PAP SMEAR (10/31/2013) Katie Mccartney AIRCRAFT LAUNCH AND RECOVERY TECHNICIAN - CNM PATHOLOGY/CYTOLO GY ORDERABLES Edited Result - Final from Last 3 Months or Most Recently Relevant to Health Maintenance Insurance MEDICARE Member Subscriber Plan / Payer (Ef fective 2021-Present) Name:Nelia Burns Relation to Subscriber:Self Name:Nelia Burns Payer ID:Not on file Group ID:Not on file Type:Not on file Address: [address] Advance Directives Healthcare Agents on File Name Relationship Healthcare Agent Relationshi p Herbie Chambers Spouse Primary Decision Maker Care Teams Class C Truck Driver Relationship Specialty [place] [address] [facility] [address] [place] [address] PCP - General Family Medicine 12/09/22
--- OUTSIDE RECORDS SUMMARY | 2025-02-19 11:40 | XMS_ITS | Encounter Summary ---
Author Organization [facility] Address [address] [place] [address] Care Team Providers Care Business Development Consultant Name Role Phone Chiara Penny DO Primary Care Provider Reason for Visit * Reason Comments Medication Refill Encounter Details Date Type Department Care Team (Late st Contact Info) Description 04/11/2020 Refill [facility] Medicine [address] [place] [address] Beatrice Samayoa MD [address] [place] [address] Medication Refill Social History Tobacco Use Types Packs/Day Years Used Date Smoking Tobacco: Former Cigarettes 0.5 40 0 03/22/1968 - 03/22/2008 Smokeless Tobacco: Never Alcohol Use Standard Drinks/Week Comments Yes 0 (1 standard drink = 0.6 oz pur e alcohol) occassional PHQ-2 Answer Date Recorded PHQ-2 Score 0 07/11/2019 Comments No Sex and Gender Information Value Date Recorded Sex Assigned at Not on file Legal Sex Female 9:13 PM EST Gender Identity Not on file Sexual Orientation Not on file documented as of this encounter Plan of Treatment Not on file documented as of this encounter Visit Diagnoses Diagnosis Hyperlipemia, mixed Mixed hyperlipidemia documented in this encounter Care Teams Business Development Consultant Relationship Specialty [place] [address] [place] [address] PCP - General Family Medicine 12/09/22 documented as of this encounter
--- OUTSIDE RECORDS SUMMARY | 2025-02-19 11:40 | XMS_ITS | Encounter Summary ---
Author Organization [facility] Address [address] [place] [address] Care Team Providers Care Sponge Maker Name Role Phone Chiara Penny DO Primary Care Provider [phone] Reason for Visit * Reason Comments Medication Refill Encounter Details Date Type Department Care Team (Late st Contact Info) Description 03/03/2016 Refill [facility] [address] [place] [phone] Dez Harrell DO Medication Refill Social History [...] on filedocumented in this encounter Care Teams Sponge Maker Relationship Specialty [place] [address] [place] [address] PCP - General Family Medicine 12/09/22 documented as of this encounter
--- OUTSIDE RECORDS SUMMARY | 2025-02-19 11:40 | XMS_ITS | Encounter Summary ---
Author Organization [facility] Address [address] [place] [address] Care Team Providers Care Traffic I Manager Name Role Phone Chiara Penny DO Primary Care Provider [phone] Reason for Visit * Reason Comments Other Encounter Details Date Type Department Care Team (Late st Contact Info) Description 02/23/2013 Refill [facility] [address] [place] [id number] Dez Harrell DO Other Social History Tobacco Use Types Packs/Day Years [...] on filedocumented in this encounter Care Teams Traffic I Manager Relationship Specialty [place] [address] [place] [address] PCP - General Family Medicine 12/09/22 documented as of this encounter
--- OUTSIDE RECORDS SUMMARY | 2025-02-19 11:40 | XMS_ITS | Encounter Summary ---
Author Organization [facility] Address [address] [place] [address] Care Team Providers Care Abrasive Coating Machine Operator Name Role Phone Chiara Penny DO Primary Care Provider Reason for Visit * Reason Onset Date Comments Medication Refill 12/30/2016 Encounter Details Date Type Department Care Team (Late st Contact Info) Description 12/30/2016 Refill [facility] [address] [place] [address] Dez Harrell DO Medication Refill Social History [...] on filedocumented in this encounter Care Teams Abrasive Coating Machine Operator Relationship Specialty [place] [address] [place], [place] [id number] PCP - General Family Medicine 12/09/22 documented as of this encounter
--- OUTSIDE RECORDS SUMMARY | 2025-02-19 11:40 | XMS_ITS | Encounter Summary ---
Author Organization [facility] Address [address] [place] [address] Care Team Providers Care Physical Meteorologist Name Role Phone Chiara Penny DO Primary Care Provider [phone] Reason for Visit * Reason Comments Medication Refill Encounter Details Date Type Department Care Team (Late st Contact Info) Description 10/10/2019 Refill [facility] Medicine [address] [place] [address] Beatrice Samayoa MD [address] [place] [address] Medication Refill Social History Tobacco [...] hyperlipidemia documented in this encounter Care Teams Physical Meteorologist Relationship Specialty [place] [address] [place] [address] PCP - General Family Medicine 12/09/22 documented as of this encounter
--- OUTSIDE RECORDS SUMMARY | 2025-02-19 11:40 | XMS_ITS | Encounter Summary ---
Author Organization [facility] Address [address] [place] [address] Care Team Providers Care Airflight Attendants Supervisor Name Role Phone Chiara Penny DO Primary Care Provider [phone] Reason for Visit * Reason Comments Medication Refill Encounter Details Date Type Department Care Team (Late st Contact Info) Description 09/19/2015 Refill [facility] [address] [place] [phone] Dez Harrell DO Medication Refill Social History [...] on filedocumented in this encounter Care Teams Airflight Attendants Supervisor Relationship Specialty [place] [address] [place] [address] PCP - General Family Medicine 12/09/22 documented as of this encounter
--- OUTSIDE RECORDS SUMMARY | 2025-02-19 11:40 | XMS_ITS | Encounter Summary ---
Author Organization [facility] Address [address] [place] [address] Care Team Providers Care Greenhouse Specialist Name Role Phone Chiara Penny DO Primary Care Provider [phone] Reason for Visit * Reason Comments Other Encounter Details Date Type Department Care Team (Late st Contact Info) Description 07/26/2013 Refill [facility] [address] [place] [address] Dez Harrell DO Other Social History Tobacco [...] on filedocumented in this encounter Care Teams Greenhouse Specialist Relationship Specialty [place] [address] [place] [address] PCP - General Family Medicine 12/09/22 documented as of this encounter
--- OUTSIDE RECORDS SUMMARY | 2025-02-19 11:40 | XMS_ITS | Encounter Summary ---
Author Organization [facility] Address [address] [place] [address] Care Team Providers Care Welder Helper Name Role Phone Chiara Penny DO Primary Care Provider [phone] Reason for Visit * Reason Comments Medication Refill Encounter Details Date Type Department Care Team (Late st Contact Info) Description 02/19/2016 Refill [facility] [address] [place] [phone] Dez Harrell DO Medication Refill Social History [...] on filedocumented in this encounter Care Teams Welder Helper Relationship Specialty [place] [address] [place] [address] PCP - General Family Medicine 12/09/22 documented as of this encounter
--- OUTSIDE RECORDS SUMMARY | 2025-02-19 11:40 | XMS_ITS | Encounter Summary ---
Author Organization [facility] Address [address] [place] [address] Care Team Providers Care Rag Production Worker Name Role Phone Chiara Penny DO Primary Care Provider [phone] Reason for Visit * Reason Comments Other Encounter Details Date Type Department Care Team (Late st Contact Info) Description 04/25/2013 Refill [facility] [address] [place] [address] Dez Harrell DO Other Social History Tobacco [...] of this encounter Visit Diagnoses Diagnosis Hyperlipemia, mixed- Primary Mixed hyperlipidemia documented in this encounter Care Teams Rag Production Worker Relationship Specialty [place] [address] [place], [place] [id number] PCP - General Family Medicine 12/09/22 documented as of this encounter
--- OUTSIDE RECORDS SUMMARY | 2025-02-19 11:40 | XMS_ITS | Encounter Summary ---
Author Organization [employer] Address [id number] [address] [place] [address] Care Team Providers Care Clinical Nursing Manager Name Role Phone Chiara Penny MD Primary Care Provider [phone] Encounter Details Date Type Department Care Team (Late st Contact Info) Description 11/01/2024 Orders Only [facility] [address] [place] [phone] Henrietta Pandya MA Mixed hyperlipidemia Social History Tobacco Use Types Packs/Day Years Used Date Smoking Tobacco: Former Cigarettes Smokeless Tobacco: Never Alcohol Use Standard Drinks/Week Comments Yes 0 (1 standard drink = 0.6 oz pur e alcohol) socially Childcare Answer Date Recorded Childcare Unknown 02/08/2019 Employment Answer Date Recorded Employment Unknown 02/08/2019 Hunger Screening Answer Date Recorded Within the past 12 months we worried whether our food would run out before we got money to buy more. Never True 05/25/2024 Within the past 12 months th e food we bought just didn't last and we didn't have money to get more. Never True 05/25/2024 Purpose - Life Answer Date Recorded Purpose and direction in life Unknown Comments No Sex and Gender Information Value Date Recorded Sex Assigned at Female 12/21/2023 1:38 PM EDT Legal Sex Female 10:51 PM EDT Gender Identity Female 12/21/2023 1:38 PM EDT Sexual Orientation Not on file documented as of this encounter Plan of Treatment Upcoming Encounters Date Type Department Care Team (Late st Contact Info) Description 03/28/2025 3:20 PM EDT Office Visit [facility] [place] [address] [address] Rudy Wilson MD [address] [place] [phone] 09/19/2025 3:00 PM EST Office Visit [facility] [address] [address] Rudy Wilson MD [address] [place] [phone] documented as of this encounter Procedures Procedure Name Priority Date/Time Associated Diagnosis Comments LIPID PROFILE Routine 10/30/2024 Mixed hyperlipidemia documented in this encounter Results * Lipid panel (10/30/2024) External Cholesterol 133 SUNQUEST External Cholesterol:Hdl 3.2 SUNQUEST External Hdl Cholesterol 41 SUNQUEST External Ldl (Calc) 63 SUNQUEST External Triglycerides 144 SUNQUEST External Very Low Lipoprotein 28 SUNQUEST 10/30/2024 Jd Austin WHEELAGE CLERK-PROCESS CHEMIST LAB BLOOD ORDERABLES Fi nal Result SUNQUEST documented in this encounter Visit Diagnoses Diagnosis Mixed hyperlipidemia documented in this encounter Care Teams Clinical Nursing Manager Relationship Specialty Start Date End Date Chiara Penny MD [address] [place] [address] PCP - General Family Medicine 09/23/23 documented as of this encounter
--- OUTSIDE RECORDS SUMMARY | 2025-02-19 11:40 | XMS_ITS | Encounter Summary ---
Author Organization [facility] Address [address] [place] [address] Care Team Providers Care Cephalometric Analyst Name Role Phone Chiara Penny DO Primary Care Provider [phone] Reason for Visit * Reason Comments Medication Refill Encounter Details Date Type Department Care Team (Late st Contact Info) Description 02/06/2019 Refill [facility] Medicine [address] [place] [address] Beatrice Samayoa MD [address] [place] [address] Medication Refill Social History Tobacco Use Types Packs/Day Years Used Date Smoking Tobacco: Former Cigarettes Q uit: 03/22/2008 Smokeless Tobacco: Never Alcohol Use Standard Drinks/Week Comments Yes 0 (1 standard drink = 0.6 oz pur e alcohol) occassional PHQ-2 Answer Date Recorded PHQ-2 Score 0 11/30/2018 Comments No Sex and Gender Information Value Date Recorded Sex Assigned at Not on file Legal Sex Female 9:13 PM EST Gender Identity Not on file Sexual Orientation Not on file documented as of this encounter Plan of Treatment Not on file documented as of this encounter Visit Diagnoses Diagnosis Controlled type 2 diabetes mellitus with complication, without long-term current use of insulin (HCC) documented in this encounter Care Teams Cephalometric Analyst Relationship Specialty [place] [address] [place] [address] PCP - General Family Medicine 12/09/22 documented as of this encounter
--- OUTSIDE RECORDS SUMMARY | 2025-02-19 11:40 | XMS_ITS | Encounter Summary ---
Author Organization [facility] Address [address] [place] [address] Care Team Providers Care Street Sprinkler Name Role Phone Chiara Penny DO Primary Care Provider [phone] Reason for Visit * Reason Comments Medication Refill Encounter Details Date Type Department Care Team (Late st Contact Info) Description 02/15/2018 Refill [facility] [address] [place] [address] [address] [place] [phone] Ruma Quinteros DO [address] [facility] [address] [place], [place] [phone] Medication Refill Social History Tobacco Use Types [...] on filedocumented in this encounter Care Teams Street Sprinkler Relationship Specialty [place] [address] [place] [address] PCP - General Family Medicine 12/09/22 documented as of this encounter
--- OUTSIDE RECORDS SUMMARY | 2025-02-19 11:40 | XMS_ITS | Encounter Summary ---
Author Organization [facility] Address [address] [place] [address] Care Team Providers Care Seeing Eye Dog Teacher Name Role Phone Chiara Penny DO Primary Care Provider [phone] Reason for Visit * Reason Comments Medication Refill Encounter Details Date Type Department Care Team (Late st Contact Info) Description 05/31/2017 Refill [facility] [address] [place] [phone] Dez Harrell DO Medication Refill Social History [...] on filedocumented in this encounter Care Teams Seeing Eye Dog Teacher Relationship Specialty [place] [address] [place] [address] PCP - General Family Medicine 12/09/22 documented as of this encounter
--- OUTSIDE RECORDS SUMMARY | 2025-02-19 11:40 | XMS_ITS | Encounter Summary ---
Author Organization [facility] Address [address] [place] [address] Care Team Providers Care Director Of Rehabilitation Name Role Phone Chiara Penny DO Primary Care Provider [phone] Reason for Visit * Reason Comments Medication Refill Encounter Details Date Type Department Care Team (Late st Contact Info) Description 05/02/2020 Refill [facility] Medicine [address] [place] [address] Beatrice Samayoa MD [address] [place] [address] Medication Refill Social History Tobacco [...] as of this encounter Visit Diagnoses Diagnosis Essential hypertension Unspecified essential hypertension documented in this encounter Care Teams Director Of Rehabilitation Relationship Specialty [place] [address] [place] [address] PCP - General Family Medicine 12/09/22 documented as of this encounter
--- OUTSIDE RECORDS SUMMARY | 2025-02-19 11:40 | XMS_ITS | Encounter Summary ---
Author Organization [facility] Address [address] [place] [address] Care Team Providers Care Mirror Framer Name Role Phone Chiara Penny DO Primary Care Provider [phone] Reason for Visit * Reason Comments Medication Refill Encounter Details Date Type Department Care Team (Late st Contact Info) Description 04/16/2020 Refill [facility] Medicine [address] [place] [address] Beatrice Samayoa MD [address] [place] [address] Medication Refill Social History Tobacco [...] hyperlipidemia documented in this encounter Care Teams Mirror Framer Relationship Specialty [place] [address] [place] [address] PCP - General Family Medicine 12/09/22 documented as of this encounter
--- OUTSIDE RECORDS SUMMARY | 2025-02-19 11:40 | XMS_ITS | Encounter Summary ---
Author Organization [facility] Address [address] [place] [address] Care Team Providers Care Parts Room Associate Name Role Phone Chiara Penny DO Primary Care Provider [phone] Reason for Visit * Reason Comments Medication Refill Encounter Details Date Type Department Care Team (Late st Contact Info) Description 03/12/2020 Refill [facility] Medicine [address] [place] [address] Beatrice Samayoa MD [address] [place] [address] Medication Refill Social History Tobacco [...] hyperlipidemia documented in this encounter Care Teams Parts Room Associate Relationship Specialty [place] [address] [place] [address] PCP - General Family Medicine 12/09/22 documented as of this encounter
--- OUTSIDE RECORDS SUMMARY | 2025-02-19 11:40 | XMS_ITS | Patient Health Record ---
Author Organization [facility] Address [address] [place] [address] Care Team Providers Care Shipping Order Clerk Name Role Phone Dez Harrell DO Primary Care Provider Unavail able Reason For Referral No Information Medications Medication SIG (Take, Route, Frequency, Duration) Notes Start Date End Date Status [facility] Natural Fish Oil - capsule Active aspirin Active Diovan tablet Active Crestor 10 mg DAILY Activ e multivitamin Multiple Vitamins 1 capsule DAILY Active Toprol XL 50 mg 1 tablet, extended release DAILY Active Tylenol Active Plan Of Treatment Pending Test Test Name Order Date CMP (COMPLETE METABOLIC PANEL) 6 CMP (COMPLETE METABOLIC PANEL) 8 CMP (COMPLETE METABOLIC PANEL) 9 DRUG SCREEN, URINE (9) w/o CONFIRM 06/21 PAIN CLINICAL DRUG SURVEY 12 , PAINS (Inculdes Alcohol, Heroin, Fentanyl and Tramadol w confirm) 06/21/2017 HEMOGLOBIN A1C (GLYCO) 09/10/2016 HEMOGLOBIN A1C (GLYCO) 09/02/2017 HEMOGLOBIN A1C (GLYCO) 09/15/2018 HEMOGLOBIN A1C (GLYCO) 02/25/2018 HEMOGLOBIN A1C (GLYCO) 07/09/2016 HEMOGLOBIN A1C (GLYCO) 04/18/2015 HEMOGLOBIN A1C (GLYCO) 09/13/2015 HEPATITIS C ANTIBODY (HCV) 07/09/2016 HIV (1+2) ANTIBODY SCREEN 07/09/2016 LIPID PANEL (CHOL/TRIG/HDL/LDL) 04/18/20 15 LIPID PANEL (CHOL/TRIG/HDL/LDL) 09/02/19 18 CBC WITH DIFF 09/02/2017 CBC WITH DIFF 10/25/2018 CBC WITH DIFF 07/09/2016 BMP (BASIC MET PANEL - W/GFR) 04/18/2015 BMP (BASIC MET PANEL - W/GFR) 09/13/2015 BMP (BASIC MET PANEL - W/GFR) 02/25/2018 MICROALBUMIN with ALB/CREAT RATIO, URINE (MALB)) 02/25/2018 MICROALBUMIN with ALB/CREAT RATIO, URINE (MALB)) 09/02/2017 MICROALBUMIN with ALB/CREAT RATIO, URINE (MALB)) 09/13/2015 MICROALBUMIN with ALB/CREAT RATIO, URINE (MALB)) 04/18/2015 MICROALBUMIN with ALB/CREAT RATIO, URINE (MALB)) 07/09/2016 TSH 10/25/2018 VITAMIN D, 25 LEVEL (TOTAL) 09/02/2017 VITAMIN D, 25 LEVEL (TOTAL) 07/09/2016 XR Pelvis (1-2 views) * 05/13/2017 XR Lumbar Spine AP LAT OBL views 017 T3 FREE, T4 FREE and TSH 07/09/2016 CORTISOL, BLOOD 07/09/2016 [employer] SCREEN FEMALE 2016 [employer] SCREEN FEMALE 2015 [employer] SCREEN FEMALE 2018 Insurance Providers Payer Name Payer Address Payer Phone Subscriber Number Group Number Insured Name Patient Relationship to Insured Coverage Start Date Coverage End Date [employer] [place] [address] [place] [address] [id number] Nelia Alvarado Self - patient is the insured 4
--- OUTSIDE RECORDS SUMMARY | 2025-02-19 11:40 | XMS_ITS | Encounter Summary ---
Author Organization [facility] Address [address] [place] [address] Care Team Providers Care Ribbon Winder Name Role Phone Chiara Penny DO Primary Care Provider [phone] Reason for Visit * Reason Comments Medication Refill Encounter Details Date Type Department Care Team (Late st Contact Info) Description 07/01/2017 Refill [facility] [address] [place] [address] Dez Harrell DO Medication Refill Social History [...] on filedocumented in this encounter Care Teams Ribbon Winder Relationship Specialty [place] [address] [place] [address] PCP - General Family Medicine 12/09/22 documented as of this encounter
--- OUTSIDE RECORDS SUMMARY | 2025-02-19 11:40 | XMS_ITS | Encounter Summary ---
Author Organization [facility] Address [address] [place] [address] Care Team Providers Care Flight Readiness Technician Name Role Phone Chiara Penny DO Primary Care Provider [phone] Reason for Visit * Reason Onset Date Comments Medication Refill 02/16/2017 Encounter Details Date Type Department Care Team (Late st Contact Info) Description 02/16/2017 Refill [facility] [address] [place] [address] Dez Harrell DO Medication Refill Social History [...] on filedocumented in this encounter Care Teams Flight Readiness Technician Relationship Specialty [place] [address] [place], [place] [phone] PCP - General Family Medicine 12/09/22 documented as of this encounter
--- OUTSIDE RECORDS SUMMARY | 2025-02-19 11:40 | XMS_ITS | Encounter Summary ---
Author Organization [facility] Address [address] [place] [address] Care Team Providers Care Production Technician Name Role Phone Chiara Penny DO Primary Care Provider Reason for Visit * Reason Comments Medication Refill Encounter Details Date Type Department Care Team (Late st Contact Info) Description 02/24/2017 Refill [facility] [address] [place] [address] Dez Harrell DO Medication Refill Social History [...] on filedocumented in this encounter Care Teams Production Technician Relationship Specialty [place] [address] [place] [address] PCP - General Family Medicine 12/09/22 documented as of this encounter
--- OUTSIDE RECORDS SUMMARY | 2025-02-19 11:40 | XMS_ITS | Encounter Summary ---
Author Organization [facility] Address [address] [place] [address] Care Team Providers Care Cartography Technician Name Role Phone Chiara Penny DO Primary Care Provider [phone] Reason for Visit * Reason Onset Date Comments Medication Refill 10/01/2017 Encounter Details Date Type Department Care Team (Late st Contact Info) Description 09/30/2017 Refill [facility] [address] [place] [address] Dez Harrell DO Medication Refill Social History [...] on filedocumented in this encounter Care Teams Cartography Technician Relationship Specialty [place] [address] [place] [address] PCP - General Family Medicine 12/09/22 documented as of this encounter
--- OUTSIDE RECORDS SUMMARY | 2025-02-19 11:40 | XMS_ITS | Encounter Summary ---
Author Organization [facility] Address [address] [place] [address] Care Team Providers Care Ice Platform Supervisor Name Role Phone Chiara Penny DO Primary Care Provider [phone] Reason for Visit * Reason Comments Medication Refill Encounter Details Date Type Department Care Team (Late st Contact Info) Description 11/21/2015 Refill [facility] [address] [place] [address] Dez Harrell DO Medication Refill Social History [...] on filedocumented in this encounter Care Teams Ice Platform Supervisor Relationship Specialty [place] [address] [place] [address] PCP - General Family Medicine 12/09/22 documented as of this encounter
--- OUTSIDE RECORDS SUMMARY | 2025-02-19 11:40 | XMS_ITS | Encounter Summary ---
Author Organization [employer] [facility] tem Address [id number] [address] [place] [address] Care Team Providers Care Agricultural Engineering Technologist Name Role Phone Chiara Penny MD Primary Care Provider [phone] Encounter Details Date Type Department Care Team (Late st Contact Info) Description 09/21/2023 Orders Only [facility] [address] [address] [place] [address] Rudy Wilson MD [address] [place] [address] scan of heart Social History Tobacco Use Types Packs/Day Years Used Date Smoking Tobacco: Every Day Smokeless Tobacco: Never Alcohol Use Standard Drinks/Week Comments Yes 0 (1 standard drink = 0.6 oz pur e alcohol) socially Childcare Answer Date Recorded Childcare Unknown 02/08/2019 Employment Answer Date Recorded Employment Unknown 02/08/2019 Purpose - Life Answer Date Recorded Purpose [...] PM EDT Office Visit [facility] Steve [address] [place] [address] Rudy Wilson MD [address] [place] [address] 09/19/2025 3:00 PM EST Office Visit [facility] Steve [address] [place] [address] Rudy Wilson MD [address] [facility] [address] [place] [address] documented as of this encounter Procedures Procedure Name Priority Date/Time Associated Diagnosis Comments CBC (NO DIFF) Routine 09/20/[address] scan of heart CREATININE, SERUM Routine 09/20/[address] scan of heart BASIC METABOLIC PANEL Routine 09/20/[address] scan of heart documented in this encounter Results * Creatinine includes GFR, serum (09/20/2023) 09/20/2023 us Rudy Wilson MD LAB BLOOD ORDERABLES Final Resu lt Performing Organization Address [facility]/ZIP Co de Phone Number SUNQUEST * CBC (09/20/2023) 09/20/2023 us Rudy Wilson MD LAB BLOOD ORDERABLES Final Resu lt Performing Organization Address [facility]/ZIP Co de Phone Number SUNQUEST * Basic Metabolic Panel (09/20/2023) 09/20/2023 Rudy Wilson MD LAB BLOOD ORDERABLES Final Resu lt Performing Organization Address [facility]/ZIP Co de Phone Number SUNQUEST documented in this encounter Visit Diagnoses Diagnosis Abnormal CT scan of heart documented in this encounter Care Teams Agricultural Engineering Technologist Relationship Specialty Start Date End Date Chiara Penny MD [address] [place] [address] PCP - General Family Medicine 09/23/23 documented as of this encounter
--- OUTSIDE RECORDS SUMMARY | 2025-02-19 11:40 | XMS_ITS | Encounter Summary ---
Author Organization [facility] Address [address] [place] [address] Care Team Providers Care Release Engineer Name Role Phone Chiara Penny DO Primary Care Provider [phone] Reason for Visit * Reason Comments Other Encounter Details Date Type Department Care Team (Late st Contact Info) Description 11/05/2014 Refill [facility] [address] [place] [address] Dez Harrell DO Other Social History Tobacco [...] on filedocumented in this encounter Care Teams Release Engineer Relationship Specialty [place] [address] [place] [address] PCP - General Family Medicine 12/09/22 documented as of this encounter
--- OUTSIDE RECORDS SUMMARY | 2025-02-19 11:40 | XMS_ITS | Encounter Summary ---
Author Organization [facility] Address [address] [place] [address] Care Team Providers Care Hospice Care Consultant Name Role Phone Chiara Penny DO Primary Care Provider [phone] Reason for Visit * Reason Comments Other Encounter Details Date Type Department Care Team (Late st Contact Info) Description 12/22/2013 Refill P [facility] [address] [facility] [address] [place] [address] Dez Harrell DO Other Social History Tobacco [...] on filedocumented in this encounter Care Teams Hospice Care Consultant Relationship Specialty [place] [address] [place] [address] PCP - General Family Medicine 12/09/22 documented as of this encounter
--- OUTSIDE RECORDS SUMMARY | 2025-02-19 11:40 | XMS_ITS | Encounter Summary ---
Author Organization [facility] Address [address] [place] [address] Care Team Providers Care Hotel Service Manager Name Role Phone Chiara Penny DO Primary Care Provider [phone] Reason for Visit * Reason Onset Date Comments Medication Refill 08/18/2016 Encounter Details Date Type Department Care Team (Late st Contact Info) Description 08/18/2016 Refill [facility] [address] [place] [address] Dez Harrell DO Medication Refill Social History [...] on filedocumented in this encounter Care Teams Hotel Service Manager Relationship Specialty [place] [address] [place], [place] [phone] PCP - General Family Medicine 12/09/22 documented as of this encounter
--- OUTSIDE RECORDS SUMMARY | 2025-02-19 11:40 | XMS_ITS | Encounter Summary ---
Author Organization [facility] Address [address] [email or web address] [address] Care Team Providers Care Chief Cardiopulmonary Technologist Name Role Phone Chiara Penny DO Primary Care Provider [phone] Reason for Visit * Reason Comments Medication Refill Encounter Details Date Type Department Care Team (Late st Contact Info) Description 12/03/2015 Refill [facility] [address] [place] [address] Dez Harrell DO Medication Refill Social History [...] on filedocumented in this encounter Care Teams Chief Cardiopulmonary Technologist Relationship Specialty [place] [address] [place] [address] PCP - General Family Medicine 12/09/22 documented as of this encounter
--- OUTSIDE RECORDS SUMMARY | 2025-02-19 11:40 | XMS_ITS | Encounter Summary ---
Author Organization [facility] Address [address] [place] [address] Care Team Providers Care Weatherstrip Machine Operator Name Role Phone Chiara Penny DO Primary Care Provider [phone] Reason for Visit * Reason Comments Other Encounter Details Date Type Department Care Team (Late st Contact Info) Description 05/03/2014 Refill [facility] [address] [place] [address] Dez Harrell DO Other Social History Tobacco [...] on filedocumented in this encounter Care Teams Weatherstrip Machine Operator Relationship Specialty [place] [address] [place] [address] PCP - General Family Medicine 12/09/22 documented as of this encounter
--- OUTSIDE RECORDS SUMMARY | 2025-02-19 11:40 | XMS_ITS | Encounter Summary ---
Author Organization [facility] Address [address] [place] [address] Care Team Providers Care C D Reactor Operator Name Role Phone Chiara Penny DO Primary Care Provider [phone] Reason for Visit * Reason Onset Date Comments Medication Refill 05/20/2016 Encounter Details Date Type Department Care Team (Late st Contact Info) Description 05/20/2016 Refill [facility] [address] [place] [address] Dez Harrell DO Medication Refill Social History [...] on filedocumented in this encounter Care Teams C D Reactor Operator Relationship Specialty [place] [address] [place], [place] [phone] PCP - General Family Medicine 12/09/22 documented as of this encounter
--- OUTSIDE RECORDS SUMMARY | 2025-02-19 11:40 | XMS_ITS | Encounter Summary ---
Author Organization [facility] Address [address] [place] [address] Care Team Providers Care Personnel Consultant Name Role Phone Chiara Penny DO Primary Care Provider Reason for Visit * Reason Comments Other Encounter Details Date Type Department Care Team (Late st Contact Info) Description 10/26/2013 Refill [facility] [address] [place] [address] Dez Harrell DO Other Social History Tobacco [...] on filedocumented in this encounter Care Teams Personnel Consultant Relationship Specialty [place] [address] [place] [address] PCP - General Family Medicine 12/09/22 documented as of this encounter
--- OUTSIDE RECORDS SUMMARY | 2025-02-19 11:40 | XMS_ITS | Encounter Summary ---
Author Organization [facility] Address [address] [place] [address] Care Team Providers Care Piece Goods Packer Name Role Phone Chiara Penny DO Primary Care Provider [phone] Reason for Visit * Reason Comments Medication Refill Encounter Details Date Type Department Care Team (Late st Contact Info) Description 11/25/2017 Refill [facility] [address] [place] [address] Dez Harrell DO Medication Refill Social History [...] on filedocumented in this encounter Care Teams Piece Goods Packer Relationship Specialty [place] [address] [place] [address] PCP - General Family Medicine 12/09/22 documented as of this encounter
--- OUTSIDE RECORDS SUMMARY | 2025-02-19 11:40 | XMS_ITS | Encounter Summary ---
Author Organization [facility] Address [address] [employer] [place] [address] Care Team Providers Care Rn Enterostomal Name Role Phone Chiara Penny DO Primary Care Provider [phone] Reason for Visit * Reason Comments Other Encounter Details Date Type Department Care Team (Late st Contact Info) Description 11/22/2014 Refill P [facility] [address] [facility] [address] [place] [phone] Dez Harrell DO Other Social History Tobacco [...] on filedocumented in this encounter Care Teams Rn Enterostomal Relationship Specialty [place] [address] [place] [address] PCP - General Family Medicine 12/09/22 documented as of this encounter
--- OUTSIDE RECORDS SUMMARY | 2025-02-19 11:40 | XMS_ITS | Encounter Summary ---
Author Organization [facility] Address [address] [address] Care Team Providers Care Behavioral Health Associate Name Role Phone Chiara Penny DO Primary Care Provider [phone] Reason for Visit * Reason Comments Medication Refill Encounter Details Date Type Department Care Team (Late st Contact Info) Description 06/27/2012 Refill [facility] [address] [facility] [address] [place] [address] Dez Harrell DO Medication Refill Social History [...] on filedocumented in this encounter Care Teams Behavioral Health Associate Relationship Specialty [place] [address] [place] [address] PCP - General Family Medicine 12/09/22 documented as of this encounter
--- OUTSIDE RECORDS SUMMARY | 2025-02-19 11:40 | XMS_ITS | Encounter Summary ---
Author Organization [facility] Address [email or web address] [address] Care Team Providers Care Lasting Machine Operator Bed Name Role Phone Chiara Penny DO Primary Care Provider [phone] Reason for Visit * Reason Comments Other Encounter Details Date Type Department Care Team (Late st Contact Info) Description 08/07/2014 Refill [facility] [address] [place] [address] Dez Harrell DO Other Social History Tobacco [...] on filedocumented in this encounter Care Teams Lasting Machine Operator Bed Relationship Specialty [place] [address] [place] [address] PCP - General Family Medicine 12/09/22 documented as of this encounter
--- OUTSIDE RECORDS SUMMARY | 2025-02-19 11:40 | XMS_ITS | Encounter Summary ---
Author Organization [facility] Address [address] [place] [address] Care Team Providers Care Care Attendant Name Role Phone Chiara Penny DO Primary Care Provider [phone] Reason for Visit * Reason Comments Medication Refill Encounter Details Date Type Department Care Team (Late st Contact Info) Description 05/30/2012 Refill [facility] [address] [facility] [address] [place] [address] Dez Harrell DO Medication Refill Social History [...] on filedocumented in this encounter Care Teams Care Attendant Relationship Specialty [place] [address] [place] [address] PCP - General Family Medicine 12/09/22 documented as of this encounter
--- OUTSIDE RECORDS SUMMARY | 2025-02-19 11:40 | XMS_ITS | Encounter Summary ---
Author Organization [facility] Address [address] [employer] [address] Care Team Providers Care Astronautical Engineer Name Role Phone Chiara Penny DO Primary Care Provider [phone] Reason for Visit * Reason Comments Other Encounter Details Date Type Department Care Team (Late st Contact Info) Description 03/24/2013 Refill P [facility] [address] [facility] [address] [place] [address] Dez Harrell DO Other Social History Tobacco [...] on filedocumented in this encounter Care Teams Astronautical Engineer Relationship Specialty [place] [address] [place] [address] PCP - General Family Medicine 12/09/22 documented as of this encounter
--- OUTSIDE RECORDS SUMMARY | 2025-02-19 11:40 | XMS_ITS | Encounter Summary ---
Author Organization [facility] Address [address] [place] [address] Care Team Providers Care Manager Field Service Name Role Phone Chiara Penny DO Primary Care Provider Reason for Visit * Reason Comments Medication Refill Encounter Details Date Type Department Care Team (Late st Contact Info) Description 05/18/2017 Refill [facility] [address] [place] [address] Dez Harrell DO Medication Refill Social History [...] on filedocumented in this encounter Care Teams Manager Field Service Relationship Specialty [place] [address] [place] [address] PCP - General Family Medicine 12/09/22 documented as of this encounter
--- OUTSIDE RECORDS SUMMARY | 2025-02-19 11:40 | XMS_ITS | Encounter Summary ---
Author Organization [facility] Address [address] [place] [address] Care Team Providers Care Block Sawyer Name Role Phone Chiara Penny DO Primary Care Provider Reason for Visit * Reason Comments Medication Refill Encounter Details Date Type Department Care Team (Late st Contact Info) Description 06/01/2016 Refill [facility] [address] [place] [address] Dez Harrell DO Medication Refill Social History [...] on filedocumented in this encounter Care Teams Block Sawyer Relationship Specialty [place] [address] [place] [address] PCP - General Family Medicine 12/09/22 documented as of this encounter
--- OUTSIDE RECORDS SUMMARY | 2025-02-19 11:41 | XMS_ITS | Encounter Summary ---
Author Organization [facility] Address [address] [place] [address] Care Team Providers Care Breadman Name Role Phone Chiara Penny DO Primary Care Provider [phone] Reason for Visit * Reason Comments Medication Refill Encounter Details Date Type Department Care Team (Late st Contact Info) Description 06/19/2015 Refill [facility] [address] [place] [address] Dez Harrell DO Medication Refill Social History [...] on filedocumented in this encounter Care Teams Breadman Relationship Specialty [place] [address] [place] [address] PCP - General Family Medicine 12/09/22 documented as of this encounter
--- OUTSIDE RECORDS SUMMARY | 2025-02-19 11:41 | XMS_ITS | Encounter Summary ---
Author Organization [facility] Address [id number] [address] [place] [address] Care Team Providers Care Thermodynamics Engineer Name Role Phone Chiara Penny MD Primary Care Provider [phone] Encounter Details Date Type Department Care Team (Late st Contact Info) Description 02/17/2024 Orders Only [facility] [address] [place] [phone] Murray Paris MD [address], [facility] [address] [place] [address] Social History Tobacco Use Types Packs/Day Years [...] got money to buy more. Never True 02/04/2024 Within the past 12 months th e food we bought just didn't last and we didn't have money to get more. Never True 02/04/2024 Purpose - Life Answer Date Recorded Purpose [...] Office Visit [facility] [address] [place] [phone] Rudy Wilson MD [address], [address] [place] [phone] 09/19/2025 3:00 PM EST Office Visit [facility] [address] [place] [phone] Rudy Wilson MD [address], [facility] [address] [place] [phone] documented as of this encounter Procedures Procedure Name Priority Date/Time Associated Diagnosis Comments VASC VENOUS DUPLEX INSUFFICIENCY LOWER BILATERAL Routine 11/03/2023 3:45 PM EST documented in this encounter Results * Vas venous duplex insufficiency lwr bi (11/03/2023 3:45 PM EST) Anatomical Region Laterality Modality Vascular Bilateral Ultrasound us Murray Paris MD CV VASCULAR ORDERABLES Final Result documented in this encounter Visit Diagnoses Not on filedocumented in this encounter Care Teams Thermodynamics Engineer Relationship Specialty Start Date End Date Chiara Penny MD [address] [place] [address] PCP - General Family Medicine 09/23/23 documented as of this encounter
--- OUTSIDE RECORDS SUMMARY | 2025-02-19 11:41 | XMS_ITS | Encounter Summary ---
Author Organization [facility] Address [address] [place] [address] Care Team Providers Care Milking Machine Operator Name Role Phone Chiara Penny DO Primary Care Provider [phone] Reason for Visit * Reason Comments Other Encounter Details Date Type Department Care Team (Late st Contact Info) Description 03/19/2015 Refill [facility] [address] [place] [address] Dez Harrell DO Other Social [...] on filedocumented in this encounter Care Teams Milking Machine Operator Relationship Specialty [place] [address] [place] [address] PCP - General Family Medicine 12/09/22 documented as of this encounter
--- OUTSIDE RECORDS SUMMARY | 2025-02-19 11:41 | XMS_ITS | Encounter Summary ---
Author Organization [facility] Address [address] [place] [address] Care Team Providers Care Cook Tortilla Name Role Phone Chiara Penny DO Primary Care Provider [phone] Reason for Visit * Reason Comments Medication Refill Encounter Details Date Type Department Care Team (Late st Contact Info) Description 05/21/2015 Refill [facility] [address] [place] [address] Dez Harrell DO Medication Refill Social History [...] on filedocumented in this encounter Care Teams Cook Tortilla Relationship Specialty [place] [address] [place] [address] PCP - General Family Medicine 12/09/22 documented as of this encounter
--- OUTSIDE RECORDS SUMMARY | 2025-02-19 11:41 | XMS_ITS | Encounter Summary ---
Author Organization [facility] Address [address] [place] [address] Care Team Providers Care Advertising Clerk Name Role Phone Chiara Penny DO Primary Care Provider [phone] Reason for Visit * Reason Comments Other Encounter Details Date Type Department Care Team (Late st Contact Info) Description 02/21/2015 Refill [facility] [address] [facility] [address] [place] [address] Dez Harrell DO Other Social History Tobacco [...] on filedocumented in this encounter Care Teams Advertising Clerk Relationship Specialty [place] [address] [place] [address] PCP - General Family Medicine 12/09/22 documented as of this encounter
--- OUTSIDE RECORDS SUMMARY | 2025-02-19 11:41 | XMS_ITS | Encounter Summary ---
Author Organization [facility] Address [address] [place] [address] Care Team Providers Care Supervisor Agency Appointments Name Role Phone Chiara Penny DO Primary Care Provider [phone] Reason for Visit * Reason Comments Medication Refill Encounter Details Date Type Department Care Team (Late st Contact Info) Description 08/26/2015 Refill [facility] [address] [facility] [address] [place] [address] Dez Harrell DO Medication Refill Social History [...] on filedocumented in this encounter Care Teams Supervisor Agency Appointments Relationship Specialty [place] [address] [place] [address] PCP - General Family Medicine 12/09/22 documented as of this encounter
--- OUTSIDE RECORDS SUMMARY | 2025-02-19 11:41 | XMS_ITS | Encounter Summary ---
Author Organization [facility] Address [address] [place] [address] Care Team Providers Care Mud Grinder Name Role Phone Chiara Penny DO Primary Care Provider [phone] Reason for Visit * Reason Comments Medication Refill Encounter Details Date Type Department Care Team (Late st Contact Info) Description 06/27/2015 Refill [facility] [address] [place] [phone] Dez Harrell DO Medication Refill Social History [...] on filedocumented in this encounter Care Teams Mud Grinder Relationship Specialty [place] [address] [place] [address] PCP - General Family Medicine 12/09/22 documented as of this encounter
--- OUTSIDE RECORDS SUMMARY | 2025-02-19 11:41 | XMS_ITS | Encounter Summary ---
Author Organization [facility] Address [id number] [address] [place] [address] Care Team Providers Care Key Punch Operator Name Role Phone Chiara Penny MD Primary Care Provider [phone] Encounter Details Date Type Department Care Team (Late st Contact Info) Description 05/24/2024 Orders Only [facility] [address] [place] [address] Henrietta Torres, VISUAL MERCHANDISING MANAGER Mixed hyperlipidemia Social History Tobacco Use Types [...] EDT Office Visit [facility] [address] [place] [phone] Rudy Wilson MD [address] [place] [phone] 09/19/2025 3:00 PM EST Office Visit [facility] [address] [phone] Rudy Wilson MD [address] [place] [phone] documented as of this encounter Procedures Procedure Name Priority Date/Time Associated Diagnosis Comments LIPID PROFILE Routine 05/24/2024 Mixed hyperlipidemia documented in this encounter Results * Lipid panel (05/24/2024) External Cholesterol 166 [facility] External Cholesterol:Hdl 4.6 [facility] External Hdl Cholesterol 36 [facility] External Ldl (Calc) 86 [facility] External Triglycerides 221 [facility] Vldl,Cholesterol 44 [facility] 05/24/2024 us Rudy Wilson MD LAB BLOOD ORDERABLES Final [facility] lt [facility] documented in this encounter Visit Diagnoses Diagnosis Mixed hyperlipidemia documented in this encounter Care Teams Key Punch Operator Relationship Specialty Start Date End Date Chiara Penny MD [address] [place] [address] PCP - General Family Medicine 09/23/23 documented as of this encounter
--- OUTSIDE RECORDS SUMMARY | 2025-02-19 11:41 | XMS_ITS | Clinical Summary ---
Author Organization [facility] tem Address [id number] [address] [place] [address] Care Team Providers Care Software Product Manager Name Role Phone Chiara Penny MD Primary Care Provider [phone] Allergies No known active allergies Medications metoprolol succinate XL (TOPROL-XL) 50 mg 24 hr tablet Take 1 tablet (50 mg total) by mouth once daily. 0 7 Active MULTIVITAMIN ORAL Take 1 tablet by mouth daily. Active aspirin 81 mg Take 1 tablet (81 mg total) by mouth in the morning. Active omega 4-yqu-uga-fish oil 1,000 mg (120 mg-180 mg) capsule Take 1 capsule by mouth in the morning. Active traMADol (ULTRAM) 50 mg tablet Take 1 tablet (50 mg total) by mouth every 6 (six) hours as needed for pain. Active UBIDECARENONE (COENZYME Q10) 100 mg tablet Take 1 capsule by mouth in the morning. Active metFORMIN (FORTAMET) 500 MG (OSM) 24 hr tablet Take 1 tablet (500 mg total) by mouth daily with breakfast. Active cetirizine (ZyrTEC) 10 MG chewable tablet Chew 1 tablet (10 mg total) and swallow in the morning. Active nitroglycerin (NITROSTAT) 0.[address] 1 tablet (0.4 mg total) under the tongue every 5 (five) minutes as needed for chest pain. 25 tablet 2 5 Active losartan-hydroCHLOR Othiazide (HYZAAR) 100-25 mg per tablet Take 1 tablet by mouth in the morning. 90 tablet 3 5 Active losartan (COZAAR) 100 mg tabletIndications:E ssential hypertension Take 1 tablet (100 mg total) by mouth in the morning. 90 tablet 2 5 Active spironolactone (ALDACTONE) 25 mg tabletIndications:E ssential hypertension Take 0.5 tablets (12.5 mg total) by mouth in the morning. 90 tablet 3 5 Active rosuvastatin (CRESTOR) 40 mg tabletIndications:H yperlipidemia, unspecified hyperlipidemia type TAKE 1 TABLET BY MOUTH EVERY DAY 90 tablet 3 5 Active Active Problems Problem Noted Date Diagnosed Date Palpitations 09/27/2024 Varicose veins of both lower extremities 024 Assessment & Plan (05/25/2024 11:43 AM EDT): She is status post injection sclerotherapy and ablation. She is doing very well. She has no pain. Her legs healed nicely. Atherosclerosis of [place] co ronary artery of [place] heart with stable angina pectoris 03/28/2024 Carotid stenosis, asymptomatic, bilateral 2023 Assessment & Plan (05/25/2024 11:43 AM EDT): Continue best medical therapy continue aspirin 81 mg and lovastatin 20 mg. Carotid duplex ultrasound in August. Assessment & Plan (12/09/2023 7:48 PM EDT): Continue aspirin and statin. Carotid ultrasound in a year. Varicose veins of bilateral lower extremities wi th pain 10/21/2023 Assessment & Plan (12/09/2023 7:47 PM EDT): She has significant GSV reflux bilaterally. She has pain both legs worse in the left side. She has been using compression therapy. Her symptoms continue despite using compression therapy and exercise I recommended left GSV ablation and injection sclerotherapy followed by right Abnormal cardiac CT angiography 09/16/2023 Bilateral carotid bruits 08/17/[address] scan of heart 08/17/2023 Chronic kidney disease 03/09/2017 Narrowing of intervertebral disc space 7 Osteoarthritis 03/09/2017 Gastroesophageal reflux disease 03/09/2017 Mixed hyperlipidemia 03/09/2017 Type 2 diabetes mellitus 10/22/2016 Microalbuminuria 10/22/2016 Loss of hair 06/20/2016 Essential hypertension 06/19/2016 Abnormal electrocardiography 06/03/2013 Thumb pain 07/24/2012 Pain in wrist 07/24/2012 Atopic rhinitis 12/11/2011 Lateral epicondylitis 10/23/2011 Encounters Date Type Department Care Team Description 12/04/2024 Refill [facility] [address] [place] [phone] Jd Austin APRN-CNP Med Refill from Last 3 Months Family History Medical History Relation Name Comments Diabetes Father Heart disease Father Heart attack Mother Heart disease Mother Relation Name Status Comments Father Mother Social History Tobacco Use Types Packs/Day Years Used Date Smoking Tobacco: Former Cigarettes Smokeless Tobacco: Never Tobacco Cessation:Counseling Given: Not Answered Alcohol Use Standard Drinks/Week Comments Yes 0 [...] PM EDT Sexual Orientation Not on file Last Filed Vital Signs Vital Sign Reading Time Taken Comments Blood Pressure 154/84 09/27/2024 2:49 PM EST Pulse 68 09/27/2024 2:49 PM EST Temperature 36.4 C (97.6 F) 05/25/2024 11:28 AM EDT Respiratory Rate 12 09/27/2024 2:49 PM EST Oxygen Saturation 98% 09/27/2024 2:49 PM EST Inhaled Oxygen Concentration - - Weight 82.6 kg (182 lb) 09/27/2024 2:49 PM EST Height 157.5 cm (5' 2 ) 09/27/2024 2:49 PM EST Body Mass Index 33.29 09/27/2024 2:49 PM EST Plan of Treatment Upcoming Encounters Date Type Department Care Team (Late st Contact Info) Description 03/28/2025 3:20 PM EDT Office Visit [facility] [address] [place] [address] Rudy Wilson MD [facility] KEYLA MACDONALD [facility] [address] [place] [phone] 09/19/2025 3:00 PM EST Office Visit [facility] [address] [place] [address] Rudy Wilson MD [facility] KEYLA MACDONALD [address] [place] [phone] Health Maintenance Due Date Last Done Comments Diabetic Ophthalmology Exam 1955 Depression Screening 1968 Adult BMI Follow Up Plan 1974 Diabetic Foot Exam 1974 Zoster (Shingles) Vaccine (1 of 2) 2006 Fall Risk Screening 2021 DTaP,Tdap and Td Vaccines (3 - Td or Tdap) 06/02/2023 06/02/2013, 11/05/1999 Influenza Vaccine 04/30/2025 06/26/2010 Tobacco Screening 05/25/2025 05/25/2024 Adult BMI Screening 09/27/2025 09/27/2024 Medical Devices Not on file Insurance MEDICARE [facility] [place] [address] Care Teams Software Product Manager Relationship Specialty Start Date End Date Chiara Penny MD [address] [place] [place] [address] PCP - General Family Medicine 09/23/23
--- NOTE | 2025-02-19 11:42 | US_ITS ---
The [address] [address] Patient Name: PETRONA BURNS MRN: [id number] date: 1955 Sex: F Assigned Patient Location: Current Patient Location: US Accession/Order Number: [id number] Exam Date: 02/19/2025 12:16 Report Date: 02/19/2025 12:18 At the request of: MARIE PURI Procedure: US renal BI BILATERAL RENAL AND BLADDER ULTRASOUND CLINICAL HISTORY: Chronic Kidney Disease, Type 2 Diabetes COMPARISON: None The right kidney is atrophic and hyperechoic measuring 5.4 cm. The left kidney measures 10.8 cm. No shadowing calculi or hydronephrosis are identified. A tiny 6 mm right renal cyst is seen. Is also cyst at the lower pole on the left measuring 18 x 16 x 18 mm. There is no perinephric fluid. The urinary bladder is partially distended with a volume of 186 mL ml. No contour or intraluminal abnormalities are seen. US/US renal BI IMPRESSION: ATROPHIC HYPERECHOIC RIGHT KIDNEY. SMALL RENAL CYSTS. NO OBSTRUCTIVE UROPATHY. Impression dictated by: Leslye Donahue M.D. 02/19/2025 12:18 PM Dictation Location: [place] [address] Electronically authenticated by: [id number] Y Date: 02/19/2025 12:18
[2025-02-19 12:37] LABS: Creatinine Urine Random 42.52 mg/dL (20.00-300.00); Protein Creatinine Ratio Urine 1.36
[2025-02-19 12:44] LABS: Hematocrit 35.7 % (36.0-48.0); Hemoglobin 11.3 g/dL (12.0-16.0); Mean Corpuscular HGB Conc 31.7 g/dL (29.9-35.2); Mean Corpuscular Hemoglobin 29.4 pg (26.7-34.0); Mean Platelet Volume 10.1 fL (9.5-13.5); Platelet Count 298 10^3/uL (150-450); Red Blood Count 3.84 10^6/uL (4.20-5.40); Red Cell Distribution Width 13.2 % (11.0-15.0); White Blood Count 8.4 10^3/uL (4.0-11.0)
[2025-02-19 12:48] LABS: Bilirubin Urine NEGATIVE (NEGATIVE); Blood Urine SMALL (NEGATIVE); Clarity Urine CLEAR (CLEAR); Color Urine LT. YELLOW (YELLOW); Glucose Urine UA NEGATIVE (NEGATIVE); Ketones Urine NEGATIVE (NEGATIVE); Leukocyte Esterase Urine NEGATIVE (NEGATIVE); Nitrite Urine NEGATIVE (NEGATIVE); Protein Urine 30 mg/dL (NEG/TRACE); Specific Gravity Urine 1.015 (1.005-1.025); Urobilinogen Urine 0.2 EU/dL (0.2-1.0)
[2025-02-19 13:00] LABS: Albumin Level 3.6 g/dL (3.4-5.0); Anion Gap 13.5; BUN Creatinine Ratio 17.8; Calcium 9.1 mg/dL (8.5-10.1); Carbon Dioxide 27.1 mmol/L (21.0-32.0); Chloride 104 mmol/L (98-107); Estimated GFR (African America 30 (>=60 mL/min/1.73m^2); Estimated GFR (Non-African Ame 24 (>=60 mL/min/1.73m^2); Glucose 109 mg/dL (74-106); Magnesium 1.9 mg/dL (1.8-2.4); Potassium 4.6 mmol/L (3.5-5.1); Sodium 140 mmol/L (136-145); Uric Acid 3.5 mg/dL (2.6-6.0)
[2025-02-19 13:00] LABS: Bacteria Urine TRACE #/HPF (NONE SEEN); Mucus Urine NONE SEEN (NONE SEEN); RBC Urine 0-2 #/HPF (0-2); Squamous Epithelial Cell Urine RARE #/LPF (NONE/RARE); WBC Urine 0-2 #/HPF (NONE SEEN)
[2025-02-19 13:01] LABS: Cast Seen? NONE SEEN #/LPF (NONE SEEN); Crystals Seen? None Seen #/HPF (None Seen); Urine Culture Indicated NO
[2025-02-20 11:08] LABS: PTH, Intact 52 pg/mL (15-65)
[2025-02-21 16:09] LABS: Albumin 3.5 g/dL (2.9-4.4); Alpha-1-Globulin 0.2 g/dL (0.0-0.4); Alpha-2-Globulin 0.9 g/dL (0.4-1.0); Free Kappa Lt Chains,S 40.1 mg/L (3.3-19.4); Free Lambda Lt Chains,S 21.2 mg/L (5.7-26.3); Gamma Globulin 0.9 g/dL (0.4-1.8); Immunoglobulin A, Qn, Serum 95 mg/dL (87-352); Immunoglobulin G, Qn, Serum 1016 mg/dL (586-1602); Immunoglobulin M, Qn, Serum 67 mg/dL (26-217); Kappa/Lambda Ratio,S 1.89 (0.26-1.65); Protein, Total 6.5 g/dL (6.0-8.5)
== END 2025-02-19 11:38 | disposition home or self-care (01) ==
LOC: US 11:38
PROVIDERS: PCP Family Medicine; Visit Provider Internal Medicine
DX: E11.22 Type 2 diabetes mellitus with diabetic chronic kidney disease (principal); N18.32 Chronic kidney disease, stage 3b; I12.9 Hypertensive chronic kidney disease with stage 1 through stage 4 chronic kidney disease, or unspecified chronic kidney disease; I25.10 Atherosclerotic heart disease of native coronary artery without angina pectoris; E78.5 Hyperlipidemia, unspecified; N28.1 Cyst of kidney, acquired
CPT/HCPCS: 36415; 76775; 80069; 81001; 82306; 82570; 82784; 83521; 83735; 83970; 84155; 84156; 84165; 84166; 84550; 85027; 86334; 86335

== ENCOUNTER 2025-05-15 12:21 | Outpatient (OUT) | payer MEDICARE, OTHER, SELFPAY ==
--- OUTSIDE RECORDS SUMMARY | 2025-05-15 12:25 | XMS_ITS | Encounter Summary ---
Author Organization [facility] Address [address], [address] [place] [address] Care Team Providers Care Unloader Name Role Phone Chiara Penny DO Primary Care Provider [phone] Reason for Visit * Reason Comments Other Encounter Details Date Type Department Care Team (Late st Contact Info) Description 11/05/2014 [facility]ill [facility] [address] [place] [address] Dez Harrell DO Other Social History Tobacco [...] on filedocumented in this encounter Care Teams Unloader Relationship Specialty [place] [address] [place] [address] PCP - General Family Medicine 12/09/22 documented as of this encounter
--- OUTSIDE RECORDS SUMMARY | 2025-05-15 12:25 | XMS_ITS | Encounter Summary ---
Author Organization [facility] Address [address] [facility], [address] [place] [address] Care Team Providers Care Professor Of Rhetoric Name Role Phone Chiara ePnny DO Primary Care Provider [phone] Reason for Visit * Reason Comments Medication Refill Encounter Details Date Type Department Care Team (Late st Contact Info) Description 03/12/2020 Refill [facility] Medicine [address] [place] [address] Beatrice Samayoa MD [address] [place] [address] Medication Refill Social History Tobacco [...] hyperlipidemia documented in this encounter Care Teams Professor Of Rhetoric Relationship Specialty [place] [address] [place] [address] PCP - General Family Medicine 12/09/22 documented as of this encounter
--- OUTSIDE RECORDS SUMMARY | 2025-05-15 12:25 | XMS_ITS | Encounter Summary ---
Author Organization [facility] Address [address] [facility], [address] [place] [address] Care Team Providers Care Continuous Loft Operator Name Role Phone Chiara Penny DO Primary Care Provider [phone] Reason for Visit * Reason Comments Medication Refill Encounter Details Date Type Department Care Team (Late st Contact Info) Description 02/06/2019 Refill [facility] Medicine [address] [place] [address] Beatrice Samayoa MD [address] [place] [address] Medication Refill Social History Tobacco [...] (HCC) documented in this encounter Care Teams Continuous Loft Operator Relationship Specialty [place] [address] [place] [address] PCP - General Family Medicine 12/09/22 documented as of this encounter
--- OUTSIDE RECORDS SUMMARY | 2025-05-15 12:25 | XMS_ITS | Encounter Summary ---
Author Organization [facility] Address [address] [facility], [address] [place] [address] Care Team Providers Care Hog Raiser Name Role Phone Chiara Penny DO Primary Care Provider Reason for Visit * Reason Comments Medication Refill Encounter Details Date Type Department Care Team (Late st Contact Info) Description 04/11/2020 Refill [facility] Medicine [address] [place] [phone] Beatrice Samayoa MD [address] [place] [address] Medication Refill Social History Tobacco [...] hyperlipidemia documented in this encounter Care Teams Hog Raiser Relationship Specialty [place] [address] [place] [address] PCP - General Family Medicine 12/09/22 documented as of this encounter
--- OUTSIDE RECORDS SUMMARY | 2025-05-15 12:25 | XMS_ITS | Encounter Summary ---
Author Organization [facility] Address [address] [facility], [address] [place] [address] Care Team Providers Care Maintenance And Custodian Supervisor Name Role Phone Chiara Penny DO Primary Care Provider [phone] Reason for Visit * Reason Comments Other Encounter Details Date Type Department Care Team (Late st Contact Info) Description 05/03/2014 Refill [facility] [address] [place] [address] Dez Harrell DO Other Social History Tobacco [...] on filedocumented in this encounter Care Teams Maintenance And Custodian Supervisor Relationship Specialty [place] [address] [place] [address] PCP - General Family Medicine 12/09/22 documented as of this encounter
--- OUTSIDE RECORDS SUMMARY | 2025-05-15 12:25 | XMS_ITS | Encounter Summary ---
Author Organization [facility] Address [address] [facility], [address] [place] [address] Care Team Providers Care Farm Management Professor Name Role Phone Chiara Penny DO Primary Care Provider [phone] Reason for Visit * Reason Comments Medication Refill Encounter Details Date Type Department Care Team (Late st Contact Info) Description 05/02/2020 Refill [facility] Medicine [address] [place] [address] Beatrice Samayoa MD [address] [place] [address] Medication Refill Social History Tobacco [...] hypertension documented in this encounter Care Teams Farm Management Professor Relationship Specialty [place] [address] [place] [address] PCP - General Family Medicine 12/09/22 documented as of this encounter
--- OUTSIDE RECORDS SUMMARY | 2025-05-15 12:25 | XMS_ITS | Encounter Summary ---
Author Organization [facility] Address [address] [facility], [address] [place] [address] Care Team Providers Care Laundry Superintendent Name Role Phone Chiara Penny DO Primary Care Provider [phone] Reason for Visit * Reason Comments Other Encounter Details Date Type Department Care Team (Late st Contact Info) Description 12/22/2013 Refill [facility] [address] [place] [phone] Dez Harrell DO Other Social History Tobacco [...] on filedocumented in this encounter Care Teams Laundry Superintendent Relationship Specialty [place] [address] [place] [address] PCP - General Family Medicine 12/09/22 documented as of this encounter
--- OUTSIDE RECORDS SUMMARY | 2025-05-15 12:25 | XMS_ITS | Encounter Summary ---
Author Organization [facility] Address [address] [facility], [address] [place] [address] Care Team Providers Care Adjunct Psychology Professor Name Role Phone Chiara Penny DO Primary Care Provider [phone] Reason for Visit * Reason Comments Other Encounter Details Date Type Department Care Team (Late st Contact Info) Description 11/21/2013 Refill [facility] [address] [place] [phone] Dez Harrell DO Other Social History Tobacco [...] on filedocumented in this encounter Care Teams Adjunct Psychology Professor Relationship Specialty [place] [address] [place] [address] PCP - General Family Medicine 12/09/22 documented as of this encounter
--- OUTSIDE RECORDS SUMMARY | 2025-05-15 12:25 | XMS_ITS | Encounter Summary ---
Author Organization [facility] Address [address] [facility], [address] [place] [address] Care Team Providers Care Formula Weigher Name Role Phone Chiara Penny DO Primary Care Provider [phone] Reason for Visit * Reason Comments Medication Refill Encounter Details Date Type Department Care Team (Late st Contact Info) Description 04/16/2020 Refill [facility] Medicine [address] [place] [address] Beatrice Samayoa MD [address] [place] [address] Medication Refill Social History Tobacco [...] hyperlipidemia documented in this encounter Care Teams Formula Weigher Relationship Specialty [place] [address] [place] [address] PCP - General Family Medicine 12/09/22 documented as of this encounter
--- OUTSIDE RECORDS SUMMARY | 2025-05-15 12:25 | XMS_ITS | Encounter Summary ---
Author Organization [facility] Address [address] [facility] [place] [address] Care Team Providers Care Butter Printer Name Role Phone Chiara Penny DO Primary Care Provider [phone] Reason for Visit * Reason Comments Other Encounter Details Date Type Department Care Team (Late st Contact Info) Description 11/22/[address] [facility] [address] [place] [phone] Dez Harrell DO Other Social History Tobacco [...] on filedocumented in this encounter Care Teams Butter Printer Relationship Specialty [place] [address] [place] [address] PCP - General Family Medicine 12/09/22 documented as of this encounter
--- OUTSIDE RECORDS SUMMARY | 2025-05-15 12:25 | XMS_ITS | Encounter Summary ---
Author Organization [facility] Address [address] [facility] [place] [address] Care Team Providers Care Car Blocker Name Role Phone Chiara Penny DO Primary Care Provider [phone] Reason for Visit * Reason Comments Other Encounter Details Date Type Department Care Team (Late st Contact Info) Description 08/07/2014 Refill [facility] [address] [place] [address] Dez Harrell DO Other Social History Tobacco [...] on filedocumented in this encounter Care Teams Car Blocker Relationship Specialty [place] [address] [place] [address] PCP - General Family Medicine 12/09/22 documented as of this encounter
--- OUTSIDE RECORDS SUMMARY | 2025-05-15 12:25 | XMS_ITS | Encounter Summary ---
Author Organization [facility] Address [address] [facility] [place] [address] Care Team Providers Care Bonded Structures Repairer Name Role Phone Chiara Penny DO Primary Care Provider [phone] Reason for Visit * Reason Comments Medication Refill Encounter Details Date Type Department Care Team (Late st Contact Info) Description 10/10/2019 Refill [facility] Medicine [address] [place] [address] Beatrice Samayoa MD [address] [place] [address] Medication Refill Social History Tobacco [...] hyperlipidemia documented in this encounter Care Teams Bonded Structures Repairer Relationship Specialty [place] [address] [place] [address] PCP - General Family Medicine 12/09/22 documented as of this encounter
--- OUTSIDE RECORDS SUMMARY | 2025-05-15 12:26 | XMS_ITS | Clinical Summary ---
Author Organization [facility] tem Address [id number] [address] [place] [address] Care Team Providers Care Drum Sander Offbearer Name Role Phone Chiara Penny MD Primary Care Provider [phone] Allergies No known active allergies Medications metoprolol succinate XL (TOPROL-XL) 50 mg 24 hr tablet Take 1 tablet (50 mg total) by mouth in the morning. 0 7 Active MULTIVITAMIN ORAL Take 1 tablet by mouth daily. Active aspirin 81 mg Take 1 tablet (81 mg total) by mouth in the morning. Active UBIDECARENONE (COENZYME Q10) 100 mg tablet [...] chest pain. 25 tablet 2 5 Active losartan (COZAAR) 100 mg tabletIndications:E [...] pain. Her legs healed nicely. Atherosclerosis of [place] co ronary artery of [place] heart without angina pectoris 03/28/2024 Carotid stenosis, asymptomatic, bilateral [...] Encounters Date Type Department Care Team Description 04/13/2025 Orders Only [facility] [address] [place] [phone] Chiara Penny MD 03/30/2025 Orders Only [facility] [place] [phone] Chiara Penny MD 03/29/2025 Telephone [facility] [address] [place] [phone] Rudy Wilson MD Confirming fax number 03/28/2025 3:20 PM EDT Office Visit [facility] [address] [place] [phone] Rudy Wilson MD Atherosclerosis of [place] coronary artery of [place] heart without angina pectoris (Primary Dx); Essential hypertension; Mixed hyperlipidemia 03/28/2025 Travel from Last 3 Months Family History Medical [...] Sign Reading Time Taken Comments Blood Pressure 130/74 03/28/2025 3:33 PM EDT Pulse 61 03/28/2025 3:33 PM EDT Temperature 36.4 C (97.6 F) 05/25/2024 11:28 AM EDT Respiratory Rate 12 03/28/2025 3:33 PM EDT Oxygen Saturation 98% 03/28/2025 3:33 PM EDT Inhaled Oxygen Concentration - - Weight 81.6 kg (180 lb) 03/28/2025 3:33 PM EDT Height 157.5 cm (5' 2 ) 03/28/2025 3:33 PM EDT Body Mass Index 32.92 03/28/2025 3:33 PM EDT Plan of Treatment Upcoming Encounters Date Type Department Care Team (Late st Contact Info) Description 09/20/2025 11:30 AM EST Office Visit [facility] Steve [address] [place] [phone] Rudy Wilson MD [address] [place] [phone] Health Maintenance Due Date Last Done Comments Diabetic Ophthalmology Exam 1955 Depression Screening 1968 Adult BMI Follow Up Plan 1974 Diabetic Foot Exam 1974 Zoster (Shingles) Vaccine (1 of 2) 2006 Fall Risk Screening 2021 DTaP,Tdap and Td Vaccines (3 - Td or Tdap) 06/02/2023 06/02/2013, 11/05/1999 Influenza Vaccine 04/30/2025 06/26/2010 Tobacco Screening 05/25/2025 05/25/2024 Statin Use: Cardiovascular 12/06/2025 12/06/2024 Statin Use: Diabetic 12/06/2025 12/06/2024 Adult BMI Screening 03/28/2026 03/28/2025 Medical Devices Not on file Insurance MEDICARE [facility] [place] [address] Care Teams Drum Sander Offbearer Relationship Specialty Start Date End Date Chiara Penny MD [address] [place] [address] PCP - General Family Medicine 09/23/23
--- OUTSIDE RECORDS SUMMARY | 2025-05-15 12:26 | XMS_ITS | Patient Health Record ---
Author Organization [facility] [place] Address [address] [place] [address] Care Team Providers Care Certified Juvenile Probation Officer Name Role Phone Dez Harrell DO Primary [...] End Date [address] [place] [address] [id number] Nelia Alvarado Self - patient is the insured 4
--- OUTSIDE RECORDS SUMMARY | 2025-05-15 12:26 | XMS_ITS | Encounter Summary ---
Author Organization [facility] Address [address] [facility], [address] [place] [address] Care Team Providers Care Linux Security Administrator Name Role Phone Chiara Penny DO Primary Care Provider [phone] Reason for Visit * Reason Comments Medication Refill Encounter Details Date Type Department Care Team (Late st Contact Info) Description 07/01/2017 Refill [facility] [address] [place] [address] Dez Harrell DO Medication Refill Social History [...] on filedocumented in this encounter Care Teams Linux Security Administrator Relationship Specialty [place] [address] [place], [place] [id number] PCP - General Family Medicine 12/09/22 documented as of this encounter
--- OUTSIDE RECORDS SUMMARY | 2025-05-15 12:26 | XMS_ITS | Encounter Summary ---
Author Organization [facility] Address [address] [facility], [address] [place] [address] Care Team Providers Care Aviation Mechanic Name Role Phone Chiara Penny DO Primary Care Provider [phone] Reason for Visit * Reason Comments Medication Refill Encounter Details Date Type Department Care Team (Late st Contact Info) Description 06/01/2016 Refill [facility] [address] [place] [address] Dez Harrell DO Medication Refill Social History [...] on filedocumented in this encounter Care Teams Aviation Mechanic Relationship Specialty [place] [address] [place], [place] [id number] PCP - General Family Medicine 12/09/22 documented as of this encounter
--- OUTSIDE RECORDS SUMMARY | 2025-05-15 12:26 | XMS_ITS | Encounter Summary ---
Author Organization [facility] Address [address] [facility], [address] [place] [address] Care Team Providers Care Chief Writer Name Role Phone Chiara Penny DO Primary Care Provider [phone] Reason for Visit * Reason Comments Medication Refill Encounter Details Date Type Department Care Team (Late st Contact Info) Description 12/03/2015 Refill [facility] [address] [place] [address] Dez Harrell DO Medication Refill Social History [...] filedocumented in this encounter Care Teams Chief Writer Relationship Specialty [place] [address] [place], [place] [phone] PCP - General Family Medicine 12/09/22 documented as of this encounter
--- OUTSIDE RECORDS SUMMARY | 2025-05-15 12:26 | XMS_ITS | Encounter Summary ---
Author Organization [facility] Address [id number] [address] [place] [address] Care Team Providers Care Pitching Coach Name Role Phone Chiara Penny MD Primary Care Provider [phone] Encounter Details Date Type Department Care Team (Late st Contact Info) Description 02/17/2024 Orders Only [facility] [address] [place] [phone] Murray Paris MD [address], [facility] [address] [place] [address] Social History Tobacco Use Types Packs/Day Years [...] Steve [address] [place] [phone] Rudy Wilson MD [address] [place] [phone] documented as of this encounter Procedures Procedure [...] on filedocumented in this encounter Care Teams Pitching Coach Relationship Specialty Start Date End Date Chiara Penny MD [address] [place] [address] PCP - General Family Medicine 09/23/23 documented as of this encounter
--- OUTSIDE RECORDS SUMMARY | 2025-05-15 12:26 | XMS_ITS | Encounter Summary ---
Author Organization [facility] s tem Address [id number] [address] [place] [address] Care Team Providers Care Real Estate Legal Assistant Name Role Phone Chiara Penyn MD Primary Care Provider [phone] Encounter Details Date Type Department Care Team (Late st Contact Info) Description 11/01/2024 Orders Only [facility] [address] [place] [phone] Henrietta Pandya MA Mixed hyperlipidemia Social History [...] [address] [place] [address] Rudy iWlson MD [address] [place] [phone] documented as of this encounter Procedures Procedure Name Priority Date/Time Associated Diagnosis Comments LIPID PROFILE Routine 10/30/2024 Mixed hyperlipidemia documented in this encounter Results * Lipid panel (10/30/2024) External Cholesterol 133 SUNQUEST External Cholesterol:Hdl 3.2 SUNQUEST External Hdl Cholesterol 41 SUNQUEST External Ldl (Calc) 63 SUNQUEST External Triglycerides 144 SUNQUEST External Very Low Lipoprotein 28 SUNQUEST 10/30/2024 Jd Austin HOME SECURITY PROFESSIONAL-WELL DRILLER LAB BLOOD ORDERABLES nal Result SUNQUEST documented in this encounter Visit Diagnoses Diagnosis Mixed hyperlipidemia documented in this encounter Care Teams Real Estate Legal Assistant Relationship Specialty Start Date End Date Chiara Penny MD [address] [place] [address] PCP - General Family Medicine 09/23/23 documented as of this encounter
--- OUTSIDE RECORDS SUMMARY | 2025-05-15 12:26 | XMS_ITS | Encounter Summary ---
Author Organization [facility] Address [address] [facility], [address] [place] [address] Care Team Providers Care Rejected Items Clerk Name Role Phone Chiara Penny DO Primary Care Provider Reason for Visit * Reason Comments Other Encounter Details Date Type Department Care Team (Late st Contact Info) Description 02/23/2013 Refill [facility] [address] [place] [phone] Dez Harrell DO Other Social History Tobacco [...] on filedocumented in this encounter Care Teams Rejected Items Clerk Relationship Specialty [place] [address] [place] [address] PCP - General Family Medicine 12/09/22 documented as of this encounter
--- OUTSIDE RECORDS SUMMARY | 2025-05-15 12:26 | XMS_ITS | Encounter Summary ---
Author Organization [facility] Address [address] [facility], [address] [place] [address] Care Team Providers Care Senior Report Developer Name Role Phone Chiara Penny DO Primary Care Provider [phone] Reason for Visit * Reason Comments Medication Refill Encounter Details Date Type Department Care Team (Late st Contact Info) Description 05/31/2017 Refill Comprehensive [facility] [address] [place] [address] Dez Harrell DO Medication Refill Social History [...] on filedocumented in this encounter Care Teams Senior Report Developer Relationship Specialty [place] [address] [place], [place] [phone] PCP - General Family Medicine 12/09/22 documented as of this encounter
--- OUTSIDE RECORDS SUMMARY | 2025-05-15 12:26 | XMS_ITS | Encounter Summary ---
Author Organization [facility] Address [address] [facility], [address] [place] [address] Care Team Providers Care Justice Of The Peace Name Role Phone Chiara Penny DO Primary Care Provider [phone] Reason for Visit * Reason Onset Date Comments Medication Refill 09/01/2016 Encounter Details Date Type Department Care Team (Late st Contact Info) Description 09/01/2016 Refill Comprehensive Care [address] [place] [address] Dez Harrell DO Medication Refill Social History [...] on filedocumented in this encounter Care Teams Justice Of The Peace Relationship Specialty [place] [address] [place] [address] PCP - General Family Medicine 12/09/22 documented as of this encounter
--- OUTSIDE RECORDS SUMMARY | 2025-05-15 12:26 | XMS_ITS | Encounter Summary ---
Author Organization [facility] Address [address] [facility], [address] [place] [address] Care Team Providers Care Engine Room Helper Name Role Phone Chiara Penny DO Primary Care Provider [phone] Reason for Visit * Reason Onset Date Comments Medication Refill 10/01/2017 Encounter Details Date Type Department Care Team (Late st Contact Info) Description 09/30/2017 Refill Comprehensive Care [address] [place] [address] Dez Harrell DO Medication Refill Social History [...] on filedocumented in this encounter Care Teams Engine Room Helper Relationship Specialty [place] [address] [place] [address] PCP - General Family Medicine 12/09/22 documented as of this encounter
--- OUTSIDE RECORDS SUMMARY | 2025-05-15 12:26 | XMS_ITS | Encounter Summary ---
Author Organization [facility] Address [address] [facility], [address] [place] [address] Care Team Providers Care Electrician Rectifier Maintenance Name Role Phone Chiara Penny DO Primary Care Provider [phone] Reason for Visit * Reason Onset Date Comments Medication Refill 05/20/2016 Encounter Details Date Type Department Care Team (Late st Contact Info) Description 05/20/2016 Refill Comprehensive Care [address] [place] [address] Dez Harrell DO Medication Refill Social History [...] on filedocumented in this encounter Care Teams Electrician Rectifier Maintenance Relationship Specialty [place] [address] [place] [address] PCP - General Family Medicine 12/09/22 documented as of this encounter
--- OUTSIDE RECORDS SUMMARY | 2025-05-15 12:26 | XMS_ITS | Encounter Summary ---
Author Organization [facility] Address [address] [facility], [address] [place] [address] Care Team Providers Care Gas And Oil Checker Name Role Phone Chiara Penny DO Primary Care Provider [phone] Reason for Visit * Reason Comments Other Encounter Details Date Type Department Care Team (Late st Contact Info) Description 04/25/2013 Refill Comprehensive Care [address] [place] [address] Dez Harrell DO Other Social History Tobacco [...] hyperlipidemia documented in this encounter Care Teams Gas And Oil Checker Relationship Specialty [place] [address] [place] [address] PCP - General Family Medicine 12/09/22 documented as of this encounter
--- OUTSIDE RECORDS SUMMARY | 2025-05-15 12:26 | XMS_ITS | Encounter Summary ---
Author Organization [facility] Address [address] [facility], [address] [place] [address] Care Team Providers Care Puncher And Fastener Name Role Phone Chiara Penny DO Primary Care Provider [phone] Reason for Visit * Reason Onset Date Comments Medication Refill 12/30/2016 Encounter Details Date Type Department Care Team (Late st Contact Info) Description 12/30/2016 Refill Comprehensive Care [address] [place] [address] Dez Harrell DO Medication Refill Social History [...] on filedocumented in this encounter Care Teams Puncher And Fastener Relationship Specialty [place] [address] [place] [address] PCP - General Family Medicine 12/09/22 documented as of this encounter
--- OUTSIDE RECORDS SUMMARY | 2025-05-15 12:26 | XMS_ITS | Encounter Summary ---
Author Organization [facility] Address [address] [facility], [address] [place] [address] Care Team Providers Care Pattern Fitter Name Role Phone Chiara Penny DO Primary Care Provider [phone] Reason for Visit * Reason Comments Medication Refill Encounter Details Date Type Department Care Team (Late st Contact Info) Description 02/24/2017 Refill Comprehensive Care [address] [place] [address] Dez Harrell DO Medication Refill Social History [...] on filedocumented in this encounter Care Teams Pattern Fitter Relationship Specialty [place] [address] [place], [place] [phone] PCP - General Family Medicine 12/09/22 documented as of this encounter
--- OUTSIDE RECORDS SUMMARY | 2025-05-15 12:26 | XMS_ITS | Encounter Summary ---
Author Organization [facility] Address [address] [facility], [address] [place] [address] Care Team Providers Care Shackler Name Role Phone Chiara Penny DO Primary Care Provider [phone] Reason for Visit * Reason Onset Date Comments Medication Refill 02/16/2017 Encounter Details Date Type Department Care Team (Late st Contact Info) Description 02/16/2017 Refill Comprehensive Care [address] [place] [address] Dez Harrell DO Medication Refill Social History [...] on filedocumented in this encounter Care Teams Shackler Relationship Specialty [place] [address] [place] [address] PCP - General Family Medicine 12/09/22 documented as of this encounter
--- OUTSIDE RECORDS SUMMARY | 2025-05-15 12:26 | XMS_ITS | Clinical Summary ---
Author Organization [facility] Address [address] [facility], [address] [place] [address] Care Team Providers Care Chaser Apprentice Name Role Phone Chiara Penny DO Primary Care Provider [phone] Allergies No known active allergies Medications Multiple [...] Brother Alive Father Alive Mother (Age 76) [place], CAD, V entricular wall rupture? Son 1 [...] 02/09/2022 8:53 AM EDT Plan of Treatment Not on file Insurance MEDICARE [facility] Advance Directives Healthcare Agents on File Name Relationship Healthcare [facility] Communication Joshua Chambers Spouse Primary Decision Maker Care Teams Chaser Apprentice Relationship Specialty [place] [address] [facility] [address] [place] [address] PCP - General Family Medicine 12/09/22
--- OUTSIDE RECORDS SUMMARY | 2025-05-15 12:26 | XMS_ITS | Encounter Summary ---
Author Organization [facility] Address [address] [facility], [address] [place] [address] Care Team Providers Care Anvil Worker Name Role Phone Chiara Penny DO Primary Care Provider [phone] Reason for Visit * Reason Comments Other Encounter Details Date Type Department Care Team (Late st Contact Info) Description 03/24/2013 Refill [facility] [address] [place] [address] Dez Harrell DO Other Social History Tobacco [...] on filedocumented in this encounter Care Teams Anvil Worker Relationship Specialty [place] [address] [place] [address] PCP - General Family Medicine 12/09/22 documented as of this encounter
--- OUTSIDE RECORDS SUMMARY | 2025-05-15 12:26 | XMS_ITS | Encounter Summary ---
Author Organization [facility] Address [address] [facility], [address] [place] [address] Care Team Providers Care Hoeing Row Boss Name Role Phone Chiara Penny DO Primary Care Provider [phone] Reason for Visit * Reason Comments Medication Refill Encounter Details Date Type Department Care Team (Late st Contact Info) Description 05/30/2012 Refill P [facility] [address] [facility] [address] [place] [address] Dez Harrell DO Medication Refill Social History [...] on filedocumented in this encounter Care Teams Hoeing Row Boss Relationship Specialty [place] [address] [place] [address] PCP - General Family Medicine 12/09/22 documented as of this encounter
--- OUTSIDE RECORDS SUMMARY | 2025-05-15 12:26 | XMS_ITS | Encounter Summary ---
Author Organization [facility] Address [address] [facility], [address] [place] [address] Care Team Providers Care Heel Coverer Name Role Phone Chiara Penny DO Primary Care Provider [phone] Reason for Visit * Reason Comments Medication Refill Encounter Details Date Type Department Care Team (Late st Contact Info) Description 11/25/2017 Refill Comprehensive Care [address] [place] [address] Dez Harrell DO Medication Refill Social History [...] on filedocumented in this encounter Care Teams Heel Coverer Relationship Specialty [place] [address] [place], [place] [address] PCP - General Family Medicine 12/09/22 documented as of this encounter
--- OUTSIDE RECORDS SUMMARY | 2025-05-15 12:26 | XMS_ITS | Encounter Summary ---
Author Organization [facility] Address [address] [facility], [address] [place] [address] Care Team Providers Care Natural Resources Technician Name Role Phone Chiara Penny DO Primary Care Provider [phone] Reason for Visit * Reason Onset Date Comments Medication Refill 08/18/2016 Encounter Details Date Type Department Care Team (Late st Contact Info) Description 08/18/2016 Refill Comprehensive Care [address] [place] [address] Dez Harrell DO Medication Refill Social History [...] on filedocumented in this encounter Care Teams Natural Resources Technician Relationship Specialty [place] [address] [place] [address] PCP - General Family Medicine 12/09/22 documented as of this encounter
--- OUTSIDE RECORDS SUMMARY | 2025-05-15 12:26 | XMS_ITS | Encounter Summary ---
Author Organization [facility] Address [address] [facility], [address] [place] [address] Care Team Providers Care Provider Network Mgr Name Role Phone Chiara Penny DO Primary Care Provider Reason for Visit * Reason Comments Medication Refill Encounter Details Date Type Department Care Team (Late st Contact Info) Description 05/18/2017 Refill Comprehensive [facility] [address] [place] [address] Dez Harrell DO Medication Refill Social History [...] on filedocumented in this encounter Care Teams Provider Network Mgr Relationship Specialty [place] [address] [place], [place] [address] PCP - General Family Medicine 12/09/22 documented as of this encounter
--- OUTSIDE RECORDS SUMMARY | 2025-05-15 12:26 | XMS_ITS | Encounter Summary ---
Author Organization [facility] Address [address] [facility], [address] [place] [address] Care Team Providers Care Boot Liner Maker Name Role Phone Chiara Penny DO Primary Care Provider [phone] Reason for Visit * Reason Comments Medication Refill Encounter Details Date Type Department Care Team (Late st Contact Info) Description 03/03/2016 Refill Comprehensive [facility] [address] [place] [address] Dez Harrell DO Medication Refill Social History [...] on filedocumented in this encounter Care Teams Boot Liner Maker Relationship Specialty [place] [address], [place] [phone] PCP - General Family Medicine 12/09/22 documented as of this encounter
--- OUTSIDE RECORDS SUMMARY | 2025-05-15 12:26 | XMS_ITS | Encounter Summary ---
Author Organization [facility] Address [address] [facility], [address] [place] [address] Care Team Providers Care Fish And Wildlife Technician Name Role Phone Chiara Penny DO Primary Care Provider [phone] Reason for Visit * Reason Comments Other Encounter Details Date Type Department Care Team (Late st Contact Info) Description 10/26/2013 Refill Comprehensive [facility] [address] [place] [address] Dez Harrell DO Other Social History Tobacco [...] on filedocumented in this encounter Care Teams Fish And Wildlife Technician Relationship Specialty [place] [address] [place] [address] PCP - General Family Medicine 12/09/22 documented as of this encounter
--- OUTSIDE RECORDS SUMMARY | 2025-05-15 12:26 | XMS_ITS | Encounter Summary ---
Author Organization [facility] Address [address] [facility], [address] [place] [address] Care Team Providers Care Water Meter Installer Name Role Phone Chiara Penny DO Primary Care Provider [phone] Reason for Visit * Reason Comments Other Encounter Details Date Type Department Care Team (Late st Contact Info) Description 07/26/2013 Refill Comprehensive [facility] [address] [place] [address] Dez Harrell DO Other Social History Tobacco [...] on filedocumented in this encounter Care Teams Water Meter Installer Relationship Specialty [place] [address] [place] [address] PCP - General Family Medicine 12/09/22 documented as of this encounter
--- OUTSIDE RECORDS SUMMARY | 2025-05-15 12:26 | XMS_ITS | Encounter Summary ---
Author Organization [facility] Address [address] [facility], [address] [place] [address] Care Team Providers Care Edger Technician Name Role Phone Chiara Penny DO Primary Care Provider [phone] Reason for Visit * Reason Comments Medication Refill Encounter Details Date Type Department Care Team (Late st Contact Info) Description 06/27/2012 Refill P [facility] [address] [facility] [address] [place] [address] Dez Harrell DO Medication Refill Social History [...] on filedocumented in this encounter Care Teams Edger Technician Relationship Specialty [place] [address] [place] [address] PCP - General Family Medicine 12/09/22 documented as of this encounter
--- OUTSIDE RECORDS SUMMARY | 2025-05-15 12:26 | XMS_ITS | Encounter Summary ---
Author Organization [facility] Address [address] [facility], [address] [place] [address] Care Team Providers Care Automotive Service Technician Name Role Phone Chiara Penny DO Primary Care Provider [phone] Reason for Visit * Reason Comments Medication Refill Encounter Details Date Type Department Care Team (Late st Contact Info) Description 02/15/2018 Refill [facility] [address] [place] [address] [address] [place] [phone] Ruma Quinteros DO [address] [facility] [address] [place], [place] [phone] Medication Refill Social History Tobacco Use Types [...] on filedocumented in this encounter Care Teams Automotive Service Technician Relationship Specialty [place] [address] [place] [address] PCP - General Family Medicine 12/09/22 documented as of this encounter
--- OUTSIDE RECORDS SUMMARY | 2025-05-15 12:26 | XMS_ITS | Encounter Summary ---
Author Organization [employer] s tem Address [id number] [address] [place] [address] Care Team Providers Care Welder Assistant Name Role Phone Chiara Penny MD Primary Care Provider [phone] Encounter Details Date Type Department Care Team (Late st Contact Info) Description 05/24/2024 Orders Only [facility] [address] [place] [address] Henrietta Torres, CDL BULK DRIVER Mixed hyperlipidemia Social History Tobacco Use Types [...] Steve [address] [place] [address] Rudy Wilson MD [address] [place] [phone] documented as of this encounter Procedures Procedure [...] MD LAB BLOOD ORDERABLES Final Resu lt SUNQUEST documented in this encounter Visit Diagnoses Diagnosis Mixed hyperlipidemia documented in this encounter Care Teams Welder Assistant Relationship Specialty Start Date End Date Chiara Penny MD [address] [place] [address] PCP - General Family Medicine 09/23/23 documented as of this encounter
--- OUTSIDE RECORDS SUMMARY | 2025-05-15 12:27 | XMS_ITS | Encounter Summary ---
Author Organization [facility] Address [address] [facility], [address] [place] [address] Care Team Providers Care Certified Juvenile Probation Officer Name Role Phone Chiara Penny DO Primary Care Provider [phone] Reason for Visit * Reason Comments Medication Refill Encounter Details Date Type Department Care Team (Late st Contact Info) Description 11/21/2015 Refill [facility] [address] [place] [address] Dez Harrell DO Medication Refill Social History [...] on filedocumented in this encounter Care Teams Certified Juvenile Probation Officer Relationship Specialty [place] [address] [place], [place] [phone] PCP - General Family Medicine 12/09/22 documented as of this encounter
--- OUTSIDE RECORDS SUMMARY | 2025-05-15 12:27 | XMS_ITS | Encounter Summary ---
Author Organization [facility] Address [address] [facility], [address] [place] [address] Care Team Providers Care Biometric Screener Name Role Phone Chiara Penny DO Primary Care Provider [phone] Reason for Visit * Reason Comments Medication Refill Encounter Details Date Type Department Care Team (Late st Contact Info) Description 08/26/2015 Refill P [facility] [address] [facility] [address] [place] [address] Dez Harrell DO Medication Refill Social History [...] on filedocumented in this encounter Care Teams Biometric Screener Relationship Specialty [place] [address] [place] [address] PCP - General Family Medicine 12/09/22 documented as of this encounter
--- OUTSIDE RECORDS SUMMARY | 2025-05-15 12:27 | XMS_ITS | Encounter Summary ---
Author Organization [facility] Address [address], [address] [place] [address] Care Team Providers Care Head Men'S Golf Coach Name Role Phone Chiara Penny DO Primary Care Provider [phone] Reason for Visit * Reason Comments Medication Refill Encounter Details Date Type Department Care Team (Late st Contact Info) Description 09/19/2015 [facility]ill [facility] [address] [place] [phone] Dez Harrell DO Medication Refill Social History [...] on filedocumented in this encounter Care Teams Head Men'S Golf Coach Relationship Specialty [place] [address] [place], [place] [phone] PCP - General Family Medicine 12/09/22 documented as of this encounter
--- OUTSIDE RECORDS SUMMARY | 2025-05-15 12:27 | XMS_ITS | Encounter Summary ---
Author Organization [facility] Address [address], [address] [place] [address] Care Team Providers Care Matrix Plater Name Role Phone Chiara Penny DO Primary Care Provider [phone] Reason for Visit * Reason Comments Medication Refill Encounter Details Date Type Department Care Team (Late st Contact Info) Description 02/19/2016 Refill [facility] [address] [place] [phone] Dez Harrell DO Medication Refill Social History [...] on filedocumented in this encounter Care Teams Matrix Plater Relationship Specialty [place] [address] [place], [place] [phone] PCP - General Family Medicine 12/09/22 documented as of this encounter
--- OUTSIDE RECORDS SUMMARY | 2025-05-15 12:27 | XMS_ITS | Encounter Summary ---
Author Organization [facility] Address [address], [address] [place] [address] Care Team Providers Care Delinquent Tax Collector Name Role Phone Chiara Penny DO Primary Care Provider [phone] Reason for Visit * Reason Comments Medication Refill Encounter Details Date Type Department Care Team (Late st Contact Info) Description 06/19/2015 Refill [facility] [address] [place] [phone] Dez Harrell DO Medication Refill Social History [...] on filedocumented in this encounter Care Teams Delinquent Tax Collector Relationship Specialty [place] [address] [place], [place] [phone] PCP - General Family Medicine 12/09/22 documented as of this encounter
--- OUTSIDE RECORDS SUMMARY | 2025-05-15 12:27 | XMS_ITS | Encounter Summary ---
Author Organization [facility] Address [address], [address] [place] [address] Care Team Providers Care Nutrition Partner Name Role Phone Chiara Penny DO Primary Care Provider [phone] Reason for Visit * Reason Comments Medication Refill Encounter Details Date Type Department Care Team (Late st Contact Info) Description 05/21/2015 Refill [facility] [address] [place] [phone] Dez Harrell DO Medication Refill Social History [...] on filedocumented in this encounter Care Teams Nutrition Partner Relationship Specialty [place] [address] [place], [place] [phone] PCP - General Family Medicine 12/09/22 documented as of this encounter
--- OUTSIDE RECORDS SUMMARY | 2025-05-15 12:27 | XMS_ITS | Encounter Summary ---
Author Organization [facility] Address [address] [facility] [address], [address] [place] [address] Care Team Providers Care Director Process Engineering Name Role Phone Chiara Penny DO Primary Care Provider Reason for Visit * Reason Comments Other Encounter Details Date Type Department Care Team (Late st Contact Info) Description 03/19/2015 Refill [facility] [address] [place] [phone] Dez Harrell DO Other Social History Tobacco [...] on filedocumented in this encounter Care Teams Director Process Engineering Relationship Specialty [place] [address] [place] [address] PCP - General Family Medicine 12/09/22 documented as of this encounter
--- OUTSIDE RECORDS SUMMARY | 2025-05-15 12:27 | XMS_ITS | Encounter Summary ---
Author Organization [facility] Address [address], [address] [place] [address] Care Team Providers Care Automotive Sales Manager Name Role Phone Chiara Penny DO Primary Care Provider [phone] Reason for Visit * Reason Comments Medication Refill Encounter Details Date Type Department Care Team (Late st Contact Info) Description 06/27/2015 Refill [facility] [address] [place] [phone] Dez Harrell DO Medication Refill Social History [...] filedocumented in this encounter Care Teams Automotive Sales Manager Relationship Specialty [place] [address] [place], [place] [phone] PCP - General Family Medicine 12/09/22 documented as of this encounter
--- OUTSIDE RECORDS SUMMARY | 2025-05-15 12:27 | XMS_ITS | Encounter Summary ---
Author Organization [facility] s tem Address [id number] [place] [address] Care Team Providers Care Pest Control Worker Helper Name Role Phone Chiara Penny MD Primary Care Provider [phone] Encounter Details Date Type Department Care Team (Late st Contact Info) Description 09/21/2023 Orders Only [facility] [address] [place] [phone] Rudy Wilson MD [facility] [address] [place] [phone] Abnormal [...] Steve [address] [place] [address] Rudy Wilson MD [address] [facility] [address] [place] [phone] documented as of this encounter Procedures Procedure Name Priority Date/Time Associated Diagnosis Comments CBC (NO DIFF) Routine 09/20/[address] scan of heart CREATININE, SERUM Routine 09/20/[address] scan of heart BASIC METABOLIC PANEL Routine 09/20/[address] scan of heart documented in this encounter Results * Creatinine includes GFR, serum (09/20/2023) 09/20/2023 Rudy Wilson MD LAB BLOOD ORDERABLES Final Resu lt Performing Organization Address [facility] de Phone Number SUNQUEST * CBC (09/20/2023) 09/20/2023 Rudy Wilson MD LAB BLOOD ORDERABLES Final Resu lt Performing Organization Address [facility] Co de Phone Number SUNQUEST * Basic Metabolic Panel (09/20/2023) 09/20/2023 Rudy Wilson MD LAB BLOOD ORDERABLES Final Resu lt Performing Organization Address [facility] Co de Phone Number SUNQUEST documented in this encounter Visit Diagnoses Diagnosis Abnormal CT scan of heart documented in this encounter Care Teams Pest Control Worker Helper Relationship Specialty Start Date End Date Chiara Penny MD [address] [place] [address] PCP - General Family Medicine 09/23/23 documented as of this encounter
--- OUTSIDE RECORDS SUMMARY | 2025-05-15 12:27 | XMS_ITS | Encounter Summary ---
Author Organization [facility] Address [address], [address] [place] [address] Care Team Providers Care Torque Tester Name Role Phone Chiara Penny DO Primary Care Provider [phone] Reason for Visit * Reason Comments Other Encounter Details Date Type Department Care Team (Late st Contact Info) Description 02/21/2015 Refill [facility] [address] [place] [phone] Dez Harrell DO Other Social History Tobacco [...] on filedocumented in this encounter Care Teams Torque Tester Relationship Specialty [place] [address] [place] [address] PCP - General Family Medicine 12/09/22 documented as of this encounter
[2025-05-15 13:10] LABS: Hematocrit 36.1 % (36.0-48.0); Hemoglobin 11.7 g/dL (12.0-16.0); Mean Corpuscular HGB Conc 32.4 g/dL (29.9-35.2); Mean Corpuscular Hemoglobin 29.8 pg (26.7-34.0); Mean Corpuscular Volume 92.1 fL (81.0-99.0); Platelet Count 351 10^3/uL (150-450); Red Blood Count 3.92 10^6/uL (4.20-5.40); White Blood Count 7.6 10^3/uL (4.0-11.0)
[2025-05-15 13:17] LABS: Protein Creatinine Ratio Urine 0.80; Total Protein Urine Random 39.2 mg/dL (<=11.9)
[2025-05-15 13:20] LABS: Albumin Level 3.9 g/dL (3.4-5.0); Anion Gap 13.3; Blood Urea Nitrogen 44.0 mg/dL (7.0-18.0); Calcium 9.3 mg/dL (8.5-10.1); Carbon Dioxide 26.2 mmol/L (21.0-32.0); Chloride 104 mmol/L (98-107); Estimated GFR (African America 33 (>=60 mL/min/1.73m^2); Estimated GFR (Non-African Ame 27 (>=60 mL/min/1.73m^2); Glucose 116 mg/dL (74-106); Magnesium 2.1 mg/dL (1.8-2.4); Potassium 4.5 mmol/L (3.5-5.1); Sodium 139 mmol/L (136-145); Uric Acid 4.4 mg/dL (2.6-6.0)
[2025-05-15 13:36] LABS: Iron 60.0 ug/dL (50.0-170.0); Percent Iron Saturation 17.6 %; Total Iron Binding Capacity 340.0 ug/dL (250.0-450.0)
[2025-05-15 13:59] LABS: Ferritin 64.0 ng/mL (8.0-252.0)
[2025-05-15 14:07] LABS: Glucose Urine UA NEGATIVE (NEGATIVE)
[2025-05-15 14:19] LABS: Cast Seen? NONE SEEN #/LPF (NONE SEEN); Crystals Seen? None Seen #/HPF (None Seen)
[2025-05-16 14:11] LABS: Antinuclear Antibodies, IFA Negative (.)
[2025-05-18 21:07] LABS: Anti-MPO Antibodies <0.2 units (0.0-0.9); Anti-PR3 Antibodies <0.2 units (0.0-0.9)
== END 2025-05-15 12:22 | disposition home or self-care (01) ==
LOC: LAB 12:23
PROVIDERS: PCP Family Medicine; Visit Provider Internal Medicine
DX: N25.81 Secondary hyperparathyroidism of renal origin (principal); I12.9 Hypertensive chronic kidney disease with stage 1 through stage 4 chronic kidney disease, or unspecified chronic kidney disease; E11.22 Type 2 diabetes mellitus with diabetic chronic kidney disease; N18.32 Chronic kidney disease, stage 3b; E78.5 Hyperlipidemia, unspecified; I25.10 Atherosclerotic heart disease of native coronary artery without angina pectoris
CPT/HCPCS: 36415; 80069; 81001; 82306; 82570; 82728; 83516; 83540; 83550; 83735; 83970; 84156; 84550; 85027; 86037; 86038; 86160; 86225